=== PATIENT | female | born 1980 | race Caucasian/White ===

== ENCOUNTER → 2020-04-23 | Outpatient (CLI) | payer OTHER | LOC: WOUNDCARE 14:12 | PROVIDERS: ATTEND Surgery | DX: I96 Gangrene, not elsewhere classified (principal); L97.412 Non-pressure chronic ulcer of right heel and midfoot with fat layer exposed; L97.422 Non-pressure chronic ulcer of left heel and midfoot with fat layer exposed; L98.492 Non-pressure chronic ulcer of skin of other sites with fat layer exposed; F11.11 Opioid abuse, in remission; L02.415 Cutaneous abscess of right lower limb; L02.416 Cutaneous abscess of left lower limb; L02.414 Cutaneous abscess of left upper limb; L02.413 Cutaneous abscess of right upper limb; T65.222A Toxic effect of tobacco cigarettes, intentional self-harm, initial encounter; F17.218 Nicotine dependence, cigarettes, with other nicotine-induced disorders | CPT/HCPCS: 99215 ==

== ENCOUNTER 2020-04-24 09:42 | Outpatient (RCR) | payer OTHER ==
[2020-04-20 08:30] VITALS: BP 127/84
--- NOTE | 2020-04-20 09:05 | NUR ---
PT PRESENTS WITH ORDERS FOR OP ABX. HAS WITH HER NOTES FROM [facility] SENIOR ENVIRONMENTAL ENGINEER THAT WOUND VAC ON RIGHT FOOT SHOULD BE CHANGED EVERY 2 DAYS. PT STATES THAT [facility] WAS UNABLE TO CHANGE VAC AND IT HAS BEEN ON SINCE WENS. WITH NO DRESSING CHANGE. PT IS TEARFUL AND WORRIED ABOUT IT GETTING INFECTED AGAIN. WITH NO WRITTEN ORDERS FOR US TO CHANGE THE DRESSING [facility] WAS CONTACTED FOR VERBAL ORDERS FROM DOC SPRAYER HAND FOR [facility]. DR SUTTON ORDERS WOUND VAC CHANGED TO AND TUESDAY AND PT TO MAKE EMILY WITH PCP FOR FOLLOW UP. THIS NURSE CHANGED WOUND VAC DRESSING AND SMITH HAIRSTON CAME IN TO DOUBLE CHECK THE DRESSING. WOUND VAC REAPPLIED AND PT GIVEN INSTRUCTIONS TO GABI DR GONZALEZ OFFICE TUESDAY AND SET UP WOUND CARE VISIT WITH HIM.
[2020-04-20 10:08] VITALS: BP 127/84
[2020-04-22 10:35] VITALS: BP 127/87
[2020-04-22] MEDS: DAPTOMYCIN IV SCH ×2 (11:10→11:13)
[2020-04-22] MEDS: NS IV SCH ×2 (11:10→11:13)
[~2020-04-24] VITALS: Ht 162.6 cm; Wt 72.7 kg
[2020-04-24] MEDS: DAPTOMYCIN IV SCH (09:55)
[2020-04-24] MEDS: NS IV SCH (09:55)
[2020-04-24 10:25] VITALS: BP 124/94
== END 2020-04-24 10:25 | disposition home or self-care (01) ==
LOC: SDC 09:42
PROVIDERS: ATTEND Nurse Practitioner Community Health
DX: Z22.322 Carrier or suspected carrier of Methicillin resistant Staphylococcus aureus (principal); F17.210 Nicotine dependence, cigarettes, uncomplicated
CPT/HCPCS: 96365; 99212

== ENCOUNTER → 2020-04-28 | Outpatient (CLI) | payer OTHER | LOC: WOUNDCARE 14:34 | PROVIDERS: ATTEND Surgery | DX: I96 Gangrene, not elsewhere classified (principal); L98.492 Non-pressure chronic ulcer of skin of other sites with fat layer exposed; L97.422 Non-pressure chronic ulcer of left heel and midfoot with fat layer exposed; L97.412 Non-pressure chronic ulcer of right heel and midfoot with fat layer exposed; F11.10 Opioid abuse, uncomplicated; L02.416 Cutaneous abscess of left lower limb; L02.415 Cutaneous abscess of right lower limb; L02.414 Cutaneous abscess of left upper limb; L02.413 Cutaneous abscess of right upper limb; T65.222A Toxic effect of tobacco cigarettes, intentional self-harm, initial encounter; F17.218 Nicotine dependence, cigarettes, with other nicotine-induced disorders | CPT/HCPCS: 11042; G0463 ==

== ENCOUNTER → 2020-05-05 | Outpatient (CLI) | payer MEDICAID, OTHER | LOC: WOUNDCARE 14:54 | PROVIDERS: ATTEND Surgery | DX: I96 Gangrene, not elsewhere classified (principal); F11.11 Opioid abuse, in remission; L02.415 Cutaneous abscess of right lower limb; T65.222A Toxic effect of tobacco cigarettes, intentional self-harm, initial encounter; F17.218 Nicotine dependence, cigarettes, with other nicotine-induced disorders | CPT/HCPCS: 11042; G0463 ==

== ENCOUNTER → 2020-05-12 | Outpatient (CLI) | payer MEDICAID | LOC: WOUNDCARE 14:50 | PROVIDERS: ATTEND Surgery | DX: L97.412 Non-pressure chronic ulcer of right heel and midfoot with fat layer exposed (principal); L02.415 Cutaneous abscess of right lower limb; T65.222A Toxic effect of tobacco cigarettes, intentional self-harm, initial encounter; I96 Gangrene, not elsewhere classified; F11.11 Opioid abuse, in remission; F17.218 Nicotine dependence, cigarettes, with other nicotine-induced disorders | CPT/HCPCS: 11042; G0463 ==

== ENCOUNTER → 2020-05-20 | Outpatient (CLI) | payer MEDICAID | LOC: WOUNDCARE 13:04 | PROVIDERS: ATTEND Surgery | DX: I96 Gangrene, not elsewhere classified (principal); L02.415 Cutaneous abscess of right lower limb; T65.222A Toxic effect of tobacco cigarettes, intentional self-harm, initial encounter; F17.218 Nicotine dependence, cigarettes, with other nicotine-induced disorders; F11.11 Opioid abuse, in remission; L97.412 Non-pressure chronic ulcer of right heel and midfoot with fat layer exposed | CPT/HCPCS: 99212 ==

== ENCOUNTER → 2020-05-26 | Outpatient (CLI) | payer MEDICAID | LOC: WOUNDCARE 15:11 | PROVIDERS: ATTEND Surgery | DX: L97.412 Non-pressure chronic ulcer of right heel and midfoot with fat layer exposed (principal); L02.415 Cutaneous abscess of right lower limb; T65.222A Toxic effect of tobacco cigarettes, intentional self-harm, initial encounter; I96 Gangrene, not elsewhere classified; F17.218 Nicotine dependence, cigarettes, with other nicotine-induced disorders; F11.11 Opioid abuse, in remission | CPT/HCPCS: 99212 ==

== ENCOUNTER 2020-12-01 11:47 | Inpatient (IN) | payer OTHER ==
[~2020-12-01] VITALS: Ht 167 cm; Wt 79.4 kg
[2020-12-01] MEDS ORDERED: DEXTROSE 50% 50 ML (IMS) SYR ONE (11:49)
[2020-12-01] MEDS ORDERED: NS IV 1000 ML 1,000 ML ONE (11:50)
[2020-12-01] MEDS ORDERED: LORazepam INJ 2 MG/ML (ATIVAN) VIAL ONE (11:50)
[2020-12-01] MEDS ORDERED: ACETAMINOPHEN 325 MG SUPP (TYLENOL) ONE (12:25)
[2020-12-01] MEDS ORDERED: VANCOMYCIN INJECTION 1,500 MG in NS IV 500 ML 500 ML IV ONE (12:30)
[2020-12-01] MEDS ORDERED: ACETAMINOPHEN 650 MG SUPP (TYLENOL) PR ONE (12:30)
[2020-12-01] MEDS ORDERED: CEFEPIME INJECTION 1,000 MG in WATER (STERILE) FOR INJECTION 10 ML IV ONE (12:30)
[2020-12-01] MEDS ORDERED: LORazepam INJ 2 MG/ML (ATIVAN) VIAL IVP ONE ×3 (12:30)
[2020-12-01] MEDS ORDERED: LACTATED RINGERS 1,000 ML IV ONE (12:30)
[2020-12-01] MEDS ORDERED: NS IV 1000 ML 1,000 ML IV ONE (12:30)
--- NOTE | 2020-12-01 12:34 | ED General ---
General Chief Complaint: Altered Mental Status Stated Complaint: AMS Nursing Triage Note: pt presents to ed via ems from scene. according to ems pt was found confused and wondering around a neighborhood when a resident called pd. upon pd arrival to scene pt layed down in the street and was unable to answer questions/appeared confused. Nursing Sepsis Screen: Possible Severe Sepsis Risk Source of Information: Patient, EMS Exam Limitations: Intoxication History of Present Illness Date Seen by Provider: Dec 01, 2020 Time Seen by Provider: 11:45 Initial Comments Patient arrives by EMS from side of the road where PD made contact with her because she was wandering around stammering incoherently. No history of trauma. Patient unable to give any meaningful history. She is encephalopathic and rep eats over and over, "please do not kill me." EMS said she had a blood sugar of 61 the try to get an IV in her and give her some Ativan and glucose unsuccessfully. Allergies and Home Medications Allergies Coded Allergies: No Allergy Information Available (Unverified , 11/19/15) Home Medications No Active Prescriptions or Reported Meds Patient Home Medication List Home Medication List Reviewed: Yes Review of Systems Review of Systems Constitutional: see HPI (Review of systems unobtainable due to patient's psychosis/encephalopathy) Past Xpigtnt-Jypjwk-Vybocx Hx Patient Social History Alcohol Use: Past History Smoking Status: Unknown if Ever Smoked Recent Infectious Disease Expo: No Past Medical History Surgeries: Yes Gallbladder Respiratory: No (unk) Cardiac: No (unk) Integumentary: No Physical Exam-Suspected Sepsis Physical Exam Vital Signs Vital Signs - First Documented 12/01/20 12/01/20 11:50 18:45 Temp 40.2 Pulse 131 Resp 30 B/P (MAP) 90/58 (69) Pulse Ox 92 O2 Delivery Room Air O2 Flow Rate 2.00 FiO2 21 Capillary Refill : Less Than 3 Seconds Blood Pressure Mean: 69 Height, Weight, BMI Height: 5'8.00" Weight: 167lbs. 0.0oz. [id number]; 27.00 BMI Method:Estimated General Appearance: Anxious, Severe Distress, Other (Disheveled) Eyes: Bilateral Eye Other (Bilateral pupils 12 mm minimally reactive and the patient does not blink) HEENT: TMs Normal (Negative hemotympanum or whitten sign), Normal ENT Inspection (Negative for raccoon eyes atraumatic head); No Moist Mucous Membranes (Dry oral mucosa) Neck: Full Range of Motion, Normal Inspection, Non Tender, Supple Respiratory: Chest Non Tender, Lungs Clear, Normal Breath Sounds, Accessory Muscle Use, Respiratory Distress (30 breaths/min, oxygen sats in the mid 80s on room air) Cardiovascular: Regular Rate, Rhythm, No Edema, Normal Peripheral Pulses, Tachycardia Gastrointestinal: Normal Bowel Sounds, No Organomegaly Extremity: Normal Capillary Refill, Normal Inspection Neurologic/Psychiatric: Alert, Other (GCS 13) Skin: normal color, warm/dry Focused Exam Sepsis Stage: Septic Shock Possible Source: Unknown Lactate Level 12/01/20 14:06: Lactic Acid Level 2.08*H 12/01/20 16:08: Lactic Acid Level 2.01*H 12/01/20 18:18: Lactic Acid Level 1.49 Time of Focused Exam: 15:30 Respiratory: Lungs Clear, Normal Breath Sounds, No Accessory Muscle Use, Respiratory Distress (Mild to moderate oxygen sats 98% on 2 L) Cardiovascular: No Edema, Normal Peripheral Pulses, Tachycardia (115) Capillary Refill: Less Than 3 Seconds Peripheral Pulses: 1+ Radial Pulses (R), 1+ Radial Pulses (L) Skin: normal color, diaphoresis Lactic Acid Level Laboratory Tests Test 12/01/20 16:08 12/01/20 18:18 Lactic Acid Level 2.01 MMOL/L (0.50-2.00) *H 1.49 MMOL/L (0.50-2.00) Within 3hrs of presentation: Admin fluids, Admin 30ml/kg IBW due to BMI>30 (3 L ordered including EMS), Admin ABX, Blood cultures prior to ABX's, Focus exam, Lactate level Progress/Results/Core Measures Suspected Sepsis Recent Fever Within 48 Hours: Yes Infection Criteria Present: Suspected New Infection New/Unexplained Altered Menta: Yes Sepsis Screen: Possible Severe Sepsis Risk SIRS Temperature: Pulse: 131 Respiratory Rate: 30 Laboratory Tests 12/01/20 11:50: White Blood Count 20.4H Blood Pressure 90 /58 Mean: 69 12/01/20 14:06: Lactic Acid Level 2.08*H 12/01/20 16:08: Lactic Acid Level 2.01*H 12/01/20 18:18: Lactic Acid Level 1.49 Laboratory Tests 12/01/20 11:50: Creatinine 2.23H, INR Comment 1.0, Platelet Count 399, Total Bilirubin 1.0 Results/Orders Lab Results Laboratory Tests Test 12/01/20 11:50 12/01/20 12:07 12/01/20 13:20 12/01/20 14:06 Range/Units White Blood Count 20.4 H 4.3-11.0 10^3/uL Red Blood Count 4.60 3.80-5.11 10^6/uL Hemoglobin 13.5 11.5-16.0 g/dL Hematocrit 42 35-52 % Mean Corpuscular Volume 91 80-99 fL Mean Corpuscular Hemoglobin 29 25-34 pg Mean Corpuscular Hemoglobin Concent 32 32-36 g/dL Red Cell Distribution Width 13.2 10.0-14.5 % Platelet Count 399 130-400 10^3/uL Mean Platelet Volume 10.5 9.0-12.2 fL Immature Granulocyte % (Auto) 1 % Neutrophils (%) (Auto) 80 H 42-75 % Lymphocytes (%) (Auto) 14 12-44 % Monocytes (%) (Auto) 5 0-12 % Eosinophils (%) (Auto) 0 0-10 % Basophils (%) (Auto) 0 0-10 % Neutrophils # (Auto) 16.3 H 1.8-7.8 10^3/uL Lymphocytes # (Auto) 2.8 1.0-4.0 10^3/uL Monocytes # (Auto) 1.0 0.0-1.0 10^3/uL Eosinophils # (Auto) 0.0 0.0-0.3 10^3/uL Basophils # (Auto) 0.1 0.0-0.1 10^3/uL Immature Granulocyte # (Auto) 0.3 H 0.0-0.1 10^3/uL Neutrophils % (Manual) 78 % Lymphocytes % (Manual) 15 % Monocytes % (Manual) 3 % Band Neutrophils 4 % Hypersegmented Neutrophils SLIGHT Blood Morphology Comment NORMAL Prothrombin Time 13.1 12.2-14.7 SEC INR Comment 1.0 0.8-1.4 Activated Partial Thromboplast Time 26 24-35 SEC Sodium Level 142 135-145 MMOL/L Potassium Level 5.4 H 3.6-5.0 MMOL/L Chloride Level 106 98-107 MMOL/L Carbon Dioxide Level 14 L 21-32 MMOL/L Anion Gap 22 H 5-14 MMOL/L Blood Urea Nitrogen 41 H 7-18 MG/DL Creatinine 2.23 H 0.60-1.30 MG/DL Estimat Glomerular Filtration Rate 25 BUN/Creatinine Ratio 18 Glucose Level 64 L 70-105 MG/DL Lactic Acid Level 5.16 *H 2.08 *H 0.50-2.00 MMOL/L Calcium Level 9.4 8.5-10.1 MG/DL Corrected Calcium 8.5-10.1 MG/DL Total Bilirubin 1.0 0.1-1.0 MG/DL Aspartate Amino Transf (AST/SGOT) 116 H 5-34 U/L Alanine Aminotransferase (ALT/SGPT) 138 H 0-55 U/L Alkaline Phosphatase 87 40-136 U/L Total Creatine Kinase 1546 H 29-168 U/L Troponin I 0.070 H <0.028 NG/ML Total Protein 9.2 H 6.4-8.2 GM/DL Albumin 5.2 H 3.2-4.5 GM/DL Salicylates Level < 5.0 L 5.0-20.0 MG/DL Acetaminophen Level < 10 L 10-30 UG/ML Serum Alcohol < 10 <10 MG/DL Coronavirus 2019 (KENNY) Not Detected Not Detecte Urine Color YELLOW Urine Clarity CLEAR Urine pH 5.5 5-9 Urine Specific Roscoe >=1.030 1.016-1.022 Urine Protein 2+ H NEGATIVE Urine Glucose (UA) NEGATIVE NEGATIVE Urine Ketones NEGATIVE NEGATIVE Urine Nitrite NEGATIVE NEGATIVE Urine Bilirubin NEGATIVE NEGATIVE Urine Urobilinogen 0.2 < = 1.0 MG/DL Urine Leukocyte Esterase NEGATIVE NEGATIVE Urine RBC (Auto) TRACE-I NEGATIVE Urine RBC 5-10 H /HPF Urine WBC 2-5 /HPF Urine Squamous Epithelial Cells 2-5 /HPF Urine Crystals PRESENT H /LPF Urine Amorphous Sediment FEW LEE ANN URATES H /LPF Urine Bacteria FEW H /HPF Urine Casts NONE /LPF Urine Mucus NEGATIVE /LPF Urine Culture Indicated CULTURE PENDING Urine Opiates Screen NEGATIVE NEGATIVE Urine Oxycodone Screen NEGATIVE NEGATIVE Urine Methadone Screen NEGATIVE NEGATIVE Urine Propoxyphene Screen NEGATIVE NEGATIVE Urine Barbiturates Screen NEGATIVE NEGATIVE Ur Tricyclic Antidepressants Screen NEGATIVE NEGATIVE Urine Phencyclidine Screen NEGATIVE NEGATIVE Urine Amphetamines Screen POSITIVE H NEGATIVE Urine Methamphetamines Screen POSITIVE H NEGATIVE Urine Benzodiazepines Screen NEGATIVE NEGATIVE Urine Cocaine Screen NEGATIVE NEGATIVE Urine Cannabinoids Screen NEGATIVE NEGATIVE Test 12/01/20 14:14 12/01/20 15:00 12/01/20 16:08 12/01/20 16:09 Range/Units Glucometer 44 *L 86 97 70-110 MG/DL Lactic Acid Level 2.01 *H 0.50-2.00 MMOL/L Test 12/01/20 17:15 12/01/20 18:18 Range/Units Glucometer 109 70-110 MG/DL Lactic Acid Level 1.49 0.50-2.00 MMOL/L Micro Results Microbiology 12/01/20 Influenza Types A,B Antigen (LIZZIE) - Final, Complete My Orders Orders - AMIE ORTIZ D50w (Emergency) Syringe (Dextrose 50% 5 (12/01/20 11:49) Ns Iv 1000 Ml (Sodium Chloride 0.9%) (12/01/20 11:50) Lorazepam Injection (Ativan Injection) (12/01/20 11:50) Lorazepam Injection (Ativan Injection) (12/01/20 12:30) Lorazepam Injection (Ativan Injection) (12/01/20 12:30) Ns Iv 1000 Ml (Sodium Chloride 0.9%) (12/01/20 12:30) Ct Head Wo (12/01/20 12:26) Cbc With Automated Diff (12/01/20 12:26) Comprehensive Metabolic Panel (12/01/20 12:26) Blood Culture (12/01/20 12:26) Sputum Culture (12/01/20 12:26) Urinalysis (12/01/20 12:26) Urine Culture (12/01/20 12:26) Protime With Inr (12/01/20 12:26) Partial Thromboplastin Time (12/01/20 12:26) Chest 1 View, Ap/Pa Only (12/01/20 12:26) Ed Iv/Invasive Line Start (12/01/20 12:26) Ed Iv/Invasive Line Start (12/01/20 12:26) Troponin I (12/01/20 12:26) Vital Signs Adult Sepsis Patie Q15M (12/01/20 12:26) O2 (12/01/20 12:26) Remove Rings In Anticipation O (12/01/20 12:26) Lactic Acid Analyzer (12/01/20 12:26) Influenza A And B Antigens (12/01/20 12:26) Lactated Ringers (Lr 1000 Ml Iv Solution (12/01/20 12:30) Cefepime Injection (Maxipime Injection) (12/01/20 12:30) Vancomycin Injection (Vancomycin Injecti (12/01/20 12:30) Covid 19 Inhouse Test (12/01/20 12:26) Creatine Kinase (12/01/20 12:26) Urine Bedside (12/01/20 12:26) Catheter(Urinary) Insert & Ass 03,15 (12/01/20 12:26) Lorazepam Injection (Ativan Injection) (12/01/20 12:30) Acetaminophen Suppository (Tylenol Suppo (12/01/20 12:30) Acetaminophen Suppository (Tylenol Suppo (12/01/20 12:25) D50w (Emergency) Syringe (Dextrose 50% 5 (12/01/20 12:45) Accucheck Stat ONCE (12/01/20 12:34) Arterial Blood Gas (12/01/20 12:34) Accucheck Stat ONCE (12/01/20 12:34) Straight Cath For Spec.-Adult (12/01/20 12:34) Manual Differential (12/01/20 11:50) Drug Screen Stat (Urine) (12/01/20 13:54) Alcohol (12/01/20 13:54) Salicylate (12/01/20 13:54) Acetaminophen (12/01/20 13:54) D5 1/2 Ns 1000 Ml Iv Solution (Dextrose (12/01/20 14:30) D50w (Emergency) Syringe (Dextrose 50% 5 (12/01/20 14:30) D5 1/2 Ns 1000 Ml Iv Solution (Dextrose (12/01/20 14:11) Medications Given in ED Current Medications Medications Dose Ordered Sig/Rory Route Start Time Stop Time Status Last Admin Dose Admin Acetaminophen 650 mg ONCE ONCE NV 12/01/20 12:30 12/01/20 12:31 DC 12/01/20 13:23 650 MG Cefepime HCl 1000 mg/Sterile Water 10 ml @ 200 mls/hr ONCE ONCE IV 12/01/20 12:30 12/01/20 12:32 DC 12/01/20 12:38 200 MLS/HR Dextrose 25 ml ONCE ONCE IV 12/01/20 14:30 12/01/20 14:31 DC 12/01/20 14:14 25 ML Dextrose 50 ml STK-MED ONCE .ROUTE 12/01/20 11:49 12/01/20 11:58 DC 12/01/20 12:05 25 ML Lactated Ringer's 1,000 ml @ 0 mls/hr Q0M ONCE IV 12/01/20 12:30 12/01/20 12:31 DC 12/01/20 12:38 0 MLS/HR Lorazepam 2 mg ONCE ONCE IVP 12/01/20 12:30 12/01/20 12:31 DC 12/01/20 12:00 2 MG Lorazepam 2 mg ONCE ONCE IVP 12/01/20 12:30 12/01/20 12:31 DC 12/01/20 12:15 2 MG Lorazepam 2 mg ONCE ONCE IVP 12/01/20 12:30 12/01/20 12:31 DC 12/01/20 12:34 2 MG Sodium Chloride 1,000 ml @ 1,000 mls/hr Q1H ONCE IV 12/01/20 12:30 12/01/20 13:29 DC 12/01/20 12:00 1,000 MLS/HR Vancomycin HCl 1500 mg/Sodium Chloride 500 ml @ 257 mls/hr ONCE ONCE IV 12/01/20 12:30 12/01/20 14:26 DC 12/01/20 12:39 257 MLS/HR Vital Signs/I&O 12/01/20 12/01/20 12/01/20 12/01/20 11:50 11:50 14:24 16:50 Temp 40.2 38.0 Pulse 131 123 112 Resp 30 28 18 B/P (MAP) 90/58 (69) 115/81 (92) 105/84 Pulse Ox 92 96 98 100 O2 Delivery Room Air Nasal Cannula Nasal Cannula O2 Flow Rate 2.00 2.00 12/01/20 12/01/20 12/01/20 12/01/20 17:00 17:08 17:30 17:30 Temp 37.4 Pulse 112 111 Resp 28 B/P (MAP) 109/80 (90) Pulse Ox 100 100 O2 Delivery Room Air Room Air Room Air 12/01/20 12/01/20 12/01/20 17:33 18:00 18:45 Temp 37.4 37.4 Pulse 110 112 Resp 40 B/P (MAP) 108/81 (90) Pulse Ox 95 100 O2 Delivery Room Air FiO2 21 Capillary Refill : Less Than 3 Seconds Blood Pressure Mean: 69 Progress Note : Time: 12:33 Progress Note 6 mg of Ativan later the patient is calm. Her pupils are 12 mm symmetric bilaterally reactive. She does not blink and she does not give any meaningful history. Suspect a toxidrome possibly infectious since she has a fever. We will get a CPK give her 2 to 3 L of IV fluids and do a septic work-up including Covid and influenza swabs. She is very resistant to us trying to get a urine collection by straight catheter. Diagnostic Imaging Diagonstic Imaging: Xray Plain Films/CT/US/NM/MRI: chest Comments NAME: YASMEEN RIBEIRO [facility] REC#: [id number] PT STATUS: REG ER : 1980 PHYSICIAN: AMIE ORTIZ MD ADMIT DATE: 12/01/20/ER Signed Date of Exam:12/01/20 CHEST 1 VIEW, AP/PA ONLY CHEST 1 VIEW, AP/PA ONLY Indication: Sepsis, altered mental status Comparison: 11/19/2015 Findings: No focal airspace disease in the visualized lungs. Please note that the posterior lower lobes are poorly evaluated by portable radiography. No pleural effusion or pneumothorax. Normal cardiomediastinal silhouette. Impression: 1. No acute cardiopulmonary process by portable radiography. Dictated by: Dictated on workstation # [id number] Dict: 12/01/20 1350 Trans: 12/01/20 1352 [facility] [id number] Interpreted by: HERNAN RUFFIN MD Electronically signed by: HERNAN RUFFIN MD 12/01/20 1350 Reviewed: Reviewed by Me Diagonstic Imaging: CT Plain Films/CT/US/NM/MRI: head Comments [facility] [place] NAME: YASMEEN RIBEIRO [facility] REC#: [id number] PT STATUS: REG ER : 1980 PHYSICIAN: AMIE ORTIZ MD ADMIT DATE: 12/01/20/ER Draft Date of Exam:12/01/20 CT HEAD WO PROCEDURE: CT head without contrast. TECHNIQUE: Multiple contiguous axial images were obtained through the brain without the use of intravenous contrast. Auto Exposure Controls were utilized during the CT exam to meet ALARA standards for radiation dose reduction. INDICATION: Encephalopathy COMPARISON with head CT 11/19/2015. There is no intracranial hemorrhage, hydrocephalus, edema, mass, mass effect or evidence for elevated intracerebral pressures. The basilar cisterns are patent. There is no sulcal effacement. Cerebral cortical volume normal. The orbits, sinuses and calvarium unremarkable. IMPRESSION: Stable normal CT head. Dictated on workstation # [id number] Dict: 12/01/20 1516 Trans: 12/01/20 1519 [facility] [id number] Interpreted by: RANCHO LOPEZ Electronically signed by: Reviewed: Reviewed by Me Departure Communication (Admissions) Time/Spoke to Admitting Phy: 15:[address] Arrington and she like Dr. Murray on board for appropriate management of sedation. Impression Primary Impression: Psychosis Qualified Codes: F29 - Unspecified psychosis not due to a substance or known physiological condition Additional Impressions: Methamphetamine intoxication Exertional rhabdomyolysis Dehydration Septic shock Disposition: ADMITTED INPATIENT Condition: Stable Admissions Decision to Admit Reason: Admit from ER (General) Decision to Admit/Date: Dec 01, 2020 Time/Decision to Admit Time: 12:00 Departure-Patient Inst. Referrals: [facility] (PCP/Family) Primary Care Physician Scripts No Active Prescriptions or Reported Meds AMIE ROTIZ Dec 01, 2020 12:34
[2020-12-01 12:38] LABS: BASOPHILS # (AUTO) 0.1 10^3/uL (0.0-0.1); BASOPHILS % (AUTO) 0 % (0-10); EOSINOPHILS % (AUTO) 0 % (0-10); HEMATOCRIT 42 % (35-52); HEMOGLOBIN 13.5 g/dL (11.5-16.0); LYMPHOCYTES # (AUTO) 2.8 10^3/uL (1.0-4.0); LYMPHOCYTES % (AUTO) 14 % (12-44); MEAN CORPUSCULAR HEMOGLOBIN 29 pg (25-34); MEAN CORPUSCULAR HGB CONC 32 g/dL (32-36); MEAN CORPUSCULAR VOLUME 91 fL (80-99); MEAN PLATELET VOLUME 10.5 fL (9.0-12.2); MONOCYTES % (AUTO) 5 % (0-12); NEUTROPHILS # (AUTO) 16.3 10^3/uL (1.8-7.8); NEUTROPHILS % (AUTO) 80 % (42-75); PLATELET COUNT 399 10^3/uL (130-400); WHITE BLOOD COUNT 20.4 10^3/uL (4.3-11.0)
[2020-12-01] MEDS ORDERED: DEXTROSE 50% 50 ML (IMS) SYR IV ONE ×2 (12:45→14:30)
[2020-12-01 12:46] LABS: ALBUMIN 5.2 GM/DL (3.2-4.5); CHLORIDE 106 MMOL/L (98-107); POTASSIUM 5.4 MMOL/L (3.6-5.0); PROTHROMBIN TIME PATIENT 13.1 SEC (12.2-14.7); SODIUM 142 MMOL/L (135-145)
[2020-12-01 12:48] LABS: BAND NEUTROPHILS 4 %; CALCIUM 9.4 MG/DL (8.5-10.1); LYMPHOCYTES % (MANUAL) 15 %; MONOCYTES % (MANUAL) 3 %; NEUTROPHILS % (MANUAL) 78 %
[2020-12-01 12:49] LABS: GLUCOSE 64 MG/DL (70-105); HYPERSEGMENTED NEUT SLIGHT; RBC MORPH NORMAL; TOTAL PROTEIN 9.2 GM/DL (6.4-8.2)
[2020-12-01 12:50] LABS: CARBON DIOXIDE 14 MMOL/L (21-32)
[2020-12-01 12:52] LABS: ALKALINE PHOSPHATASE 87 U/L (40-136); CREATININE SERUM 2.23 MG/DL (0.60-1.30); GFR ESTIMATED 25
[2020-12-01 12:53] LABS: BUN/CREATININE RATIO 18
[2020-12-01 12:55] LABS: ALANINE AMINOTRANSFERASE 138 U/L (0-55); CREATINE KINASE 1546 U/L (29-168)
[2020-12-01 13:41] LABS: BILIRUBIN,URINE NEGATIVE (NEGATIVE); CLARITY,URINE CLEAR; COLOR,URINE YELLOW; GLUCOSE, URINE (UA) NEGATIVE (NEGATIVE); KETONES,URINE NEGATIVE (NEGATIVE); LEUKOCYTE ESTERASE ,URINE NEGATIVE (NEGATIVE); NITRITE,URINE NEGATIVE (NEGATIVE); PH,URINE 5.5 (5-9); PROTEIN,URINE 2+ (NEGATIVE)
--- NOTE | 2020-12-01 13:53 | Diagnostic Imaging Report ---
CHEST 1 VIEW, AP/PA ONLY Indication: Sepsis, altered mental status Comparison: 11/19/2015 Findings: No focal airspace disease in the visualized lungs. Please note that the posterior lower lobes are poorly evaluated by portable radiography. No pleural effusion or pneumothorax. Normal cardiomediastinal silhouette. Impression: 1. No acute cardiopulmonary process by portable radiography. Dictated by: Dictated on workstation # [id number]
[2020-12-01 14:08] LABS: BACTERIA,URINE FEW /HPF
[2020-12-01 14:09] LABS: AMORPHOUS SEDIMENT,UR FEW AMOR URATES /LPF
[2020-12-01] MEDS ORDERED: D5 1/2 NS 1000 ML IV SOLUTION 1,000 ML IV ONE (14:11)
[2020-12-01 14:16] LABS: AMPHETAMINE SCREEN, URINE POSITIVE (NEGATIVE); BARBITURATE SCREEN URINE NEGATIVE (NEGATIVE); BENZODIAZEPINES SCREEN URINE NEGATIVE (NEGATIVE); CANNABINOID SCREEN, URINE NEGATIVE (NEGATIVE); COCAINE SCREEN URINE NEGATIVE (NEGATIVE); METHADONE STAT NEGATIVE (NEGATIVE); METHAMPHETAMINE SCREEN URINE S POSITIVE (NEGATIVE); OPIATE SCREEN URINE NEGATIVE (NEGATIVE); OXYCODONE STAT NEGATIVE (NEGATIVE); PROPOXYPHENE STAT NEGATIVE (NEGATIVE); TRICYCLIC ANTIDEPRESSANTS SCRE NEGATIVE (NEGATIVE)
[2020-12-01 14:18] LABS: SALICYLATE < 5.0 MG/DL (5.0-20.0)
[2020-12-01 14:19] LABS: ACETAMINOPHEN < 10 UG/ML (10-30)
[2020-12-01] MEDS ORDERED: D5 1/2 NS 1000 ML IV SOLUTION 1,000 ML IV SCH (14:30)
--- NOTE | 2020-12-01 15:20 | Diagnostic Imaging Report ---
PROCEDURE: CT head without contrast. TECHNIQUE: Multiple contiguous axial images were obtained through the brain without the use of intravenous contrast. Auto Exposure Controls were utilized during the CT exam to meet ALARA standards for radiation dose reduction. INDICATION: Encephalopathy COMPARISON with head CT 11/19/2015. There is no intracranial hemorrhage, hydrocephalus, edema, mass, mass effect or evidence for elevated intracerebral pressures. The basilar cisterns are patent. There is no sulcal effacement. Cerebral cortical volume normal. The orbits, sinuses and calvarium unremarkable. IMPRESSION: Stable normal CT head. Dictated by: Dictated on workstation # [id number]
[2020-12-01] MEDS ORDERED: ACETAMINOPHEN 650 MG SUPP (TYLENOL) PR PRN (18:15)
[2020-12-01] MEDS ORDERED: ONDANSETRON 4 MG/2 ML (SDV) Z0FRAN IV PRN (18:15)
[2020-12-01] MEDS ORDERED: LORazepam INJ 2 MG/ML (ATIVAN) VIAL IV PRN (18:15)
[2020-12-01] MEDS ORDERED: CATHETER FLUSH 10 ML SYR IV PRN (18:15)
[2020-12-01] MEDS: D5 1/2 NS 1000 ML IV SOLUTION 1,000 ML IV SCH ×2 (18:22→20:47)
[2020-12-01 18:45] VITALS: BP 105/84
[2020-12-01] MEDS ORDERED: RT-ALBUTEROL SULF 2.5 MG/3 ML PRE-MIX VIAL INH PRN (19:00)
[2020-12-01] MEDS ORDERED: EPINEPHrine 1 MG INJECTION 4 MG in NS (IVPB) 248 ML IV SCH (20:45)
[2020-12-01] MEDS ORDERED: NOREPINEPHRINE 8 MG/250 ML 250 ML IV SCH (20:45)
[2020-12-01] MEDS: VASOPRESSIN INJECTION 20 UNIT in NS (IVPB) 100 ML IV SCH (22:15)
[2020-12-01] MEDS: CEFEPIME 1,000 MG/SWFI 10 ML IV PUSH IV SCH ×2 (22:25)
[2020-12-02] MEDS: D5 1/2 NS 1000 ML IV SOLUTION 1,000 ML IV SCH ×4 (03:56→23:30)
[2020-12-02] MEDS: CEFEPIME 1,000 MG/SWFI 10 ML IV PUSH IV SCH ×8 (05:16→23:29)
[2020-12-02] MEDS: VASOPRESSIN INJECTION 20 UNIT in NS (IVPB) 100 ML IV SCH (05:23)
--- NOTE | 2020-12-02 05:56 | Pulmonary Consultation ---
History of Present Illness History of Present Illness Time Seen by Provider: 05:51 Date of Admission Allergies and Home Medications Allergies Coded Allergies: No Allergy Information Available (Unverified , 11/19/15) Home Medications No Active Prescriptions or Reported Meds Past Akypfql-Ovmjxl-Eopgds Hx Patient Social History Alcohol Use: Past History Smoking Status: Unknown if Ever Smoked Recent Infectious Disease Expo: No Have you traveled recently?: Unable to obtain Substance type: Amphetamines, Methamphetamine Alcohol Use?: Unable to obtain Past Medical History Surgeries: Yes Gallbladder Respiratory: No (unk) Cardiac: No (unk) Integumentary: No Review of Systems Time Seen by Provider: 05:56 Sepsis Event Evaluation Height, Weight, BMI Height: 5'8.00" Weight: 167lbs. 0.0oz. 75.571333gp; 27.53 BMI Method:Estimated Exam Exam Vital Signs Date Time Temp Pulse Resp B/P (MAP) Pulse Ox O2 Delivery O2 Flow Rate FiO2 12/02/20 04:00 100 Room Air 12/02/20 04:00 98 29 113/82 (92) Room Air 12/02/20 03:58 36.1 12/02/20 03:00 96 15 110/70 (83) 98 Room Air 12/02/20 02:00 95 19 105/81 (89) Room Air 12/02/20 01:00 93 15 101/68 (79) 100 Room Air 12/02/20 01:00 93 12/02/20 00:00 100 Room Air 12/02/20 00:00 96 19 104/48 (66) 98 Room Air 12/01/20 23:32 36.5 12/01/20 23:00 99 21 101/77 (85) 100 Room Air 12/01/20 22:00 100 22 111/82 (92) 98 Room Air 12/01/20 21:00 104 23 112/78 (89) 100 Room Air 12/01/20 20:31 37.5 12/01/20 20:00 100 Room Air 12/01/20 20:00 106 25 108/78 (88) 99 Room Air 12/01/20 19:00 107 25 111/73 (86) 98 Room Air 12/01/20 19:00 107 12/01/20 18:45 37.4 112 100 21 12/01/20 18:00 110 40 108/81 (90) 95 Room Air 12/01/20 17:33 37.4 12/01/20 17:30 111 28 109/80 (90) 100 Room Air 12/01/20 17:30 112 12/01/20 17:08 37.4 Room Air 12/01/20 17:00 100 Room Air 12/01/20 16:50 112 18 105/84 100 12/01/20 14:24 38.0 123 28 115/81 (92) 98 Nasal Cannula 2.00 12/01/20 11:50 96 Nasal Cannula 2.00 12/01/20 11:50 40.2 131 30 90/58 (69) 92 Room Air I & O 12/02/20 07:00 Intake Total 4130 ml Output Total 1800 ml Balance 2330 ml Height & Weight Height: 5'8.00" Weight: 167lbs. 0.0oz. 75.471121hn; 27.53 BMI Method:Estimated General Appearance: Anxious, Severe Distress, Other (Disheveled) HEENT: TMs Normal (Negative hemotympanum or whitten sign), Normal ENT Inspection (Negative for raccoon eyes atraumatic head); No Moist Mucous Membranes (Dry oral mucosa) Neck: Full Range of Motion, Normal Inspection, Non Tender, Supple Respiratory: Lungs Clear, Normal Breath Sounds, No Accessory Muscle Use, Respiratory Distress (Mild to moderate oxygen sats 98% on 2 L) Cardiovascular: No Edema, Normal Peripheral Pulses, Tachycardia (115) Capillary Refill: Less Than 3 Seconds Peripheral Pulses: 1+ Radial Pulses (R), 1+ Radial Pulses (L) Extremity: Normal Capillary Refill, Normal Inspection Neurologic/Psychiatric: Alert, Other (GCS 13) Results Lab Laboratory Tests 12/01/20 11:50 Assessment/Plan Assessment/Plan Psychosis Methamphetamine dependance -Education Sepsis -Not requiring pressors Rhabdomyolysis -IVF and monitor -Repeat Labs pending ARF -IVF Dehydration with hypoglycemia -D5LR at 150 Elevated LFTs -Monitor ELIANA VILLASENOR DO Dec 02, 2020 05:56
[2020-12-02] MEDS ORDERED: KCL 20 MEQ TAB (K-DUR) PO SCH (06:00)
[2020-12-02] MEDS ORDERED: MAGNESIUM 1 GM/100 ML IVPB 100 ML IV SCH (06:00)
[2020-12-02] MEDS ORDERED: POTASSIUM CL 10MEQ/50ML IVPB 50 ML IV SCH (06:00)
--- NOTE | 2020-12-02 06:19 | Diagnostic Imaging Report ---
EXAMINATION: Portable erect AP chest at 324 hours. INDICATION: Pneumonia. FINDINGS: The heart size is within normal limits and stable when compared to 12/01/2020. The lungs remain generally clear. There is no evidence for failure, pneumonia or for pleural effusion. The mediastinum is not widened. The osseous structures are intact. IMPRESSION: Stable chest. There has been no adverse change since the prior exam. Dictated by: Dictated on workstation # [id number]
[2020-12-02 06:23] LABS: BASOPHILS % (AUTO) 0 % (0-10); EOSINOPHILS % (AUTO) 0 % (0-10); MEAN CORPUSCULAR HEMOGLOBIN 29 pg (25-34); MEAN CORPUSCULAR HGB CONC 32 g/dL (32-36); MEAN PLATELET VOLUME 10.7 fL (9.0-12.2); NEUTROPHILS % (AUTO) 85 % (42-75)
[2020-12-02 06:25] LABS: HEMATOCRIT 40 % (35-52); LYMPHOCYTES % (AUTO) 8 % (12-44); MEAN CORPUSCULAR VOLUME 91 fL (80-99); MONOCYTES % (AUTO) 5 % (0-12)
[2020-12-02 06:33] LABS: ALBUMIN 4.1 GM/DL (3.2-4.5); POTASSIUM 4.9 MMOL/L (3.6-5.0)
[2020-12-02 06:35] LABS: CALCIUM 7.8 MG/DL (8.5-10.1)
[2020-12-02 06:36] LABS: TOTAL PROTEIN 7.9 GM/DL (6.4-8.2)
[2020-12-02 06:37] LABS: BILIRUBIN,TOTAL 1.2 MG/DL (0.1-1.0)
[2020-12-02 06:39] LABS: CREATININE SERUM 1.05 MG/DL (0.60-1.30)
[2020-12-02 06:41] LABS: HEMOGLOBIN 12.9 g/dL (11.5-16.0); PLATELET COUNT 143 10^3/uL (130-400); WHITE BLOOD COUNT 18.6 10^3/uL (4.3-11.0)
[2020-12-02 06:42] LABS: LYMPHOCYTES # (AUTO) 1.6 10^3/uL (1.0-4.0); NEUTROPHILS # (AUTO) 15.9 10^3/uL (1.8-7.8); SMEAR SCAN COMMENT YES
--- NOTE | 2020-12-02 11:14 | History & Physical-Hospitalist ---
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 Carmichael is a 40yoWF with a history of methamphetamine use who was picked up by EMS on the side of the road and brought to [facility] ED after police were called on her for wandering a neighborhood stammering and disoriented. Upon presentation she had severe AMS, sepsis with an initial lactic acid of 5.16, hypoglycemia (61), hypotension, elevated troponin (0.07), and leukocytosis with WBC of 20.4k. She was given Ativan, D50W, 3L fluid bolus. Pt was found to have rhabdomyolysis with CK of 1546 and potassium at 5.4. CXR, CT head, COVID and Influenza testing were all negative and UDS positive for methamphetamines. She was admitted to the ICU and started on Vancomycin, Cefepime, and IVF. She has not required Ativan in the ICU and today she is oriented to person, place and time; however, she continues to have hallucinations but she is aware that they are not reality. She is stable, not requiring pressors, and leukocytosis improving. Her kidney function is improving (Hot Repairman 1.05, potassium WNL) and urine output is adequate. She will continue current abx and IVF in ICU with potential to move down to 4th floor tomorrow. Pt states that she was in a drug recovery program and has not used in awhile but got kicked out due to failure to provide a urine sample and relapsed yesterday. Source: patient, old records Exam Limitations: no limitations Date Seen 12/02/20 Time Seen by a Provider: 08:30 Attending Physician Dominique Casas DO [facility] Referring Physician Date of Admission Dec 01, 2020 at 15:45 Home Medications & Allergies Home Medications Reviewed patient Home Medication Reconciliation performed by pharmacy medication reconciliations pilot plant research technician and/or nursing. Patients Allergies have been reviewed. Allergies Allergies Coded Allergies No Allergy Information Available (Unverified11/19/15) Patient Social History Marrital Status: single Smoking Status: Unknown if Ever Smoked Smokeless Tobacco Frequency: Unknown if Ever Used E-Cig and/or Vaping Freq: Unknown if Ever Used Substance type: Amphetamines, Methamphetamine Alcohol Use?: Unable to obtain Pt stated abuse/neglect: Unable to obtain Immunizations Up To Date Influenza Vaccine Up-to-Date: No; Not Current Current Status Do you have an Advance Directi: Unable to obtain Primary Language: Chinese Implanted or Applied Medical D: None Review of Systems Constitutional: No chills, No diaphoresis, No dizziness, No fever EENTM: No hearing loss, No blurred vision Respiratory: No cough, No dyspnea on exertion, No hemoptysis, No short of breath Cardiovascular: No chest pain, No edema Gastrointestinal: No abdominal pain, No constipation, No heartburn, No jaundice, No loss of appetite Genitourinary: No dysuria, No frequency Musculoskeletal: back pain; No neck pain Skin: No pruritus, No rash Psychiatric/Neurological: Anxiety, Paresthesia (burning in both hands) Physical Exam Physical Exam Vital Signs Vital Signs - First Documented 12/01/20 12/01/20 11:50 18:45 Temp 40.2 Pulse 131 Resp 30 B/P (MAP) 90/58 (69) Pulse Ox 92 O2 Delivery Room Air O2 Flow Rate 2.00 FiO2 21 Capillary Refill : Less Than 3 Seconds Height, Weight, BMI Height: 5'8.00" Weight: 167lbs. 0.0oz. [id number]; 27.53 BMI Method:Estimated General Appearance: No Apparent Distress, WD/WN, Anxious HEENT: PERRL/EOMI, Moist Mucous Membranes Neck: Full Range of Motion, Non Tender Respiratory: Chest Non Tender, Lungs Clear, Normal Breath Sounds, No Accessory Muscle Use, No Respiratory Distress Cardiovascular: Regular Rate, Rhythm, No Edema, No JVD, Normal Peripheral Pulses Gastrointestinal: Normal Bowel Sounds, Non Tender, Soft Genital/Rectal: Other (byrd catheter in place; urine dark) Back: No CVA Tenderness, No Vertebral Tenderness, Other (paravertebral musculature pain b/l lower thoracics) Extremity: Normal Capillary Refill, Non Tender, No Calf Tenderness, No Pedal Edema Neurologic/Psychiatric: Alert, Oriented x3, Normal Mood/Affect, Other (reports hallucinations) Skin: Normal Color, Warm/Dry Lymphatic: No Adenopathy Results Results/Procedures Labs Laboratory Tests 12/01/20 11:50 12/02/20 06:04 12/02/20 06:09 Patient resulted labs reviewed. 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 Continues to have hallucinations Sepsis - improved. Lactic acid 1.49 down from 5.16 Exertional Rhabdomyolysis Substance abuse - methamphetamines Hyperkalemia - resolved GERTRUDIS - improved. Hot Repairman 1.05 down from 2.23 Dehydration and hypoglycemia - resolved Leukocytosis - improved 18.6 down from 20.4. Continue Cefepime and Vanc Elevated Troponin - likely Type II [place] Elevated LFTs - monitor Plan: ICU close monitoring IVF IV abx Diagnosis/Problems Diagnosis/Problems (1) Acute renal failure Status: Acute (2) Drug overdose Status: Acute (3) Hypoglycemia Status: Resolved (4) Sepsis Status: Acute (5) Methamphetamine intoxication Status: Acute (6) Dehydration Status: Resolved (7) Psychosis Status: Acute Qualifiers: Psychosis type: unspecified psychosis type Qualified Codes: F29 - Unspecified psychosis not due to a substance or known physiological condition (8) Exertional rhabdomyolysis Status: Acute CASASOSMAN LUQUEMoraima CHARLES 12/03/20 0618: History of Present Illness HPI/Chief Complaint CC: Altered mental status due to methamphetamine use HPI: This is a 40yoWF of [facility] who has a history of meth use and was in a drug rehab program, was kicked out and continued to use a lot of drugs. She presented with altered mental status, sepsis and rhabdo. Pt was placed on Cefepime and Vanc for suspicion of pneumonia and WC is improved from 20,000 to 18,000 today, but liver enzymes remain elevated from shocked liver. At this current time pt is sleeping and has a lot of fecal incontinence. Source: patient Patient Social History Marrital Status: single Employed/Student: unemployed Smoking Status: Current Everyday Smoker Review of Systems Constitutional: see HPI, weakness Physical Exam Physical Exam General Appearance: No Apparent Distress, Chronically ill Respiratory: Lungs Clear Cardiovascular: Regular Rate, Rhythm Neurologic/Psychiatric: Alert Assessment/Plan Admission Diagnosis Assessment: Psychosis Meth use Liver shock Hypotension Fecal incontinence Plan: ICU Monitor liver Admission Status: Inpatient Order (span 2 midnights) Reason for Inpatient Admission: meth use with liver shock and AMS Supervisory-Addendum Brief Verification & Attestation Participated in pt care: history, MDM, physical Personally performed: exam, history, MDM, supervision of care Care discussed with: Medical Student Procedures: n/a Results interpretation: Verified all documentation Verification and Attestation of Medical Student E/M Service A medical student performed and documented this service in my presence. I reviewed and verified all information documented by the medical student and made modifications to such information, when appropriate. I personally performed the physical exam and medical decision making. Dominique Casas, Dec 03, 2020,06:17 VICTORINO MCRAE MED STUDENT Dec 02, 2020 11:14 DOMINIQUE CASAS DO Dec 03, 2020 06:18
[2020-12-02] MEDS ORDERED: VANCOMYCIN 1 GM/NS 250 ML IVPB IV SCH ×2 (13:00)
[2020-12-02] MEDS: ACETAMINOPHEN 325 MG TABLET PO PRN (20:19)
[2020-12-03 02:55] LABS: HEMATOCRIT 35 % (35-52); MEAN CORPUSCULAR VOLUME 90 fL (80-99); MEAN PLATELET VOLUME 10.8 fL (9.0-12.2)
[2020-12-03 02:57] LABS: BASOPHILS % (AUTO) 0 % (0-10); EOSINOPHILS % (AUTO) 0 % (0-10); HEMOGLOBIN 11.1 g/dL (11.5-16.0); LYMPHOCYTES # (AUTO) 1.5 10^3/uL (1.0-4.0); LYMPHOCYTES % (AUTO) 11 % (12-44); MEAN CORPUSCULAR HEMOGLOBIN 29 pg (25-34); MEAN CORPUSCULAR HGB CONC 32 g/dL (32-36); MONOCYTES # (AUTO) 0.5 10^3/uL (0.0-1.0); MONOCYTES % (AUTO) 4 % (0-12); NEUTROPHILS # (AUTO) 10.9 10^3/uL (1.8-7.8); NEUTROPHILS % (AUTO) 84 % (42-75); PLATELET COUNT 102 10^3/uL (130-400)
[2020-12-03 03:09] LABS: CHLORIDE 114 MMOL/L (98-107); POTASSIUM 3.7 MMOL/L (3.6-5.0); SODIUM 137 MMOL/L (135-145)
[2020-12-03 03:10] LABS: CALCIUM 7.6 MG/DL (8.5-10.1)
[2020-12-03 03:11] LABS: GLUCOSE 100 MG/DL (70-105)
[2020-12-03 03:12] LABS: CARBON DIOXIDE 12 MMOL/L (21-32)
[2020-12-03 03:14] LABS: CREATININE SERUM 0.74 MG/DL (0.60-1.30); GFR ESTIMATED > 60; PHOSPHORUS 1.8 MG/DL (2.3-4.7)
[2020-12-03 03:15] LABS: BUN/CREATININE RATIO 15
[2020-12-03 03:17] LABS: MAGNESIUM 1.9 MG/DL (1.6-2.4)
--- NOTE | 2020-12-03 04:47 | Pulmonary Progress Note ---
Subjective Time Seen by a Provider: 04:42 Subjective/Events-last exam No complications noted. Sepsis Event Evaluation Height, Weight, BMI Height: 5'8.00" Weight: 167lbs. 0.0oz. 75.222015sm; 27.53 BMI Method:Estimated Focused Exam Lactate Level 12/01/20 14:06: Lactic Acid Level 2.08*H 12/01/20 16:08: Lactic Acid Level 2.01*H 12/01/20 18:18: Lactic Acid Level 1.49 Time of Focused Exam: 15:30 Exam Exam Vital Signs Date Time Temp Pulse Resp B/P (MAP) Pulse Ox O2 Delivery O2 Flow Rate FiO2 12/03/20 04:00 85 26 112/72 (85) 97 Room Air 12/03/20 03:00 82 21 106/78 (90) 97 Room Air 12/03/20 03:00 37.0 12/03/20 02:00 86 16 107/72 (87) 98 Room Air 12/03/20 02:00 37.0 12/03/20 01:00 83 15 110/80 (87) 97 Room Air 12/03/20 01:00 37.0 12/03/20 00:06 36.7 12/03/20 00:00 88 15 92/63 (73) 97 Room Air 12/02/20 23:59 Room Air 12/02/20 23:00 82 28 101/66 (80) 98 Room Air 12/02/20 22:00 36.6 12/02/20 22:00 89 16 112/63 (80) 97 Room Air 12/02/20 21:00 36.6 12/02/20 21:00 91 20 122/81 (96) 98 Room Air 12/02/20 20:11 Room Air 12/02/20 20:00 36.7 12/02/20 20:00 Room Air 12/02/20 20:00 89 17 115/77 (88) 98 Room Air 12/02/20 19:00 91 17 126/85 (99) 100 Room Air 12/02/20 19:00 91 12/02/20 18:00 84 14 100/71 (81) 97 Room Air 12/02/20 17:00 82 14 93/64 (74) 97 Room Air 12/02/20 16:00 90 21 102/88 (93) 98 Room Air 12/02/20 15:53 36.4 12/02/20 15:01 Room Air 12/02/20 15:00 84 30 109/72 (84) 99 Room Air 12/02/20 14:00 89 15 114/85 (95) 99 Room Air 12/02/20 13:00 87 16 106/77 (87) 99 Room Air 12/02/20 12:46 87 12/02/20 12:42 36.9 12/02/20 12:21 Room Air 12/02/20 12:00 86 15 109/79 (89) 95 Room Air 12/02/20 11:26 Room Air 12/02/20 11:00 87 17 109/82 (91) 100 Nasal Cannula 2.00 12/02/20 10:23 93 Nasal Cannula 2.00 12/02/20 10:17 Nasal Cannula 2.00 12/02/20 10:00 87 17 112/83 (93) Room Air 12/02/20 09:00 90 20 108/88 (95) Room Air 12/02/20 08:30 Room Air 12/02/20 08:27 91 22 128/94 (105) 93 Room Air 12/02/20 08:00 88 21 127/118 (121) Room Air 12/02/20 07:48 36.2 12/02/20 07:00 96 16 128/94 (105) Room Air 12/02/20 06:50 93 I & O 12/03/20 07:00 Intake Total 4110 ml Output Total 2125 ml Balance 1985 ml Height & Weight Height: 5'8.00" Weight: 167lbs. 0.0oz. 75.607554kj; 27.53 BMI Method:Estimated General Appearance: No Apparent Distress, WD/WN, Anxious HEENT: PERRL/EOMI, Moist Mucous Membranes Neck: Full Range of Motion, Non Tender Respiratory: Chest Non Tender, Lungs Clear, Normal Breath Sounds, No Accessory Muscle Use, No Respiratory Distress Cardiovascular: Regular Rate, Rhythm, No Edema, No JVD, Normal Peripheral Pulses Capillary Refill: Less Than 3 Seconds Peripheral Pulses: 1+ Radial Pulses (R), 1+ Radial Pulses (L) Extremity: Normal Capillary Refill, Non Tender, No Calf Tenderness, No Pedal Edema Neurologic/Psychiatric: Alert, Oriented x3, Normal Mood/Affect, Other (reports hallucinations) Skin: Normal Color, Warm/Dry Lymphatic: No Adenopathy Results Lab Laboratory Tests 12/01/20 11:50 12/02/20 06:04 12/02/20 06:09 12/03/20 02:30 Assessment/Plan Assessment/Plan Psychosis Methamphetamine dependance -Education Sepsis -Not requiring pressors -D/C Vanco continue Cefepime Rhabdomyolysis -IVF and monitor -Repeat CK ARF -IVF Dehydration with hypoglycemia -D5LR at 150 Elevated LFTs -Monitor ELIANA VILLASENOR DO Dec 03, 2020 04:47
[2020-12-03] MEDS ORDERED: POTASSIUM PHOSPHATE INJ 15 MM in NS (IVPB) 250 ML IV ONE (05:00)
[2020-12-03] MEDS: CEFEPIME 1,000 MG/SWFI 10 ML IV PUSH IV SCH ×10 (05:42→23:56)
[2020-12-03] MEDS: D5 1/2 NS 1000 ML IV SOLUTION 1,000 ML IV SCH ×3 (05:44→23:56)
[2020-12-03] MEDS ORDERED: SODIUM PHOSPHATE INJ 30 MM in NS (IVPB) 250 ML INJ ONE (08:00)
[2020-12-03] MEDS: ACETAMINOPHEN 325 MG TABLET PO PRN ×2 (08:20→17:13)
[2020-12-03] MEDS ORDERED: KCL 20 MEQ TAB (K-DUR) PO NR (09:00)
--- NOTE | 2020-12-03 11:11 | Progress Note - Hospitalist ---
VCITORINO MCRAE MED STUDENT 12/03/20 1111: Subjective HPI/CC On Admission Date Seen by Provider: Dec 03, 2020 Time Seen by Provider: 08:00 CC: Altered mental status due to methamphetamine use HPI: This is a 40yoWF of [facility] who has a history of meth use and was in a drug rehab program, was kicked out and continued to use a lot of drugs. She presented with altered mental status, sepsis and rhabdo. Pt was placed on Cefepime and Vanc for suspicion of pneumonia and WC is improved from 20,000 to 13,000 today, but liver enzymes remain elevated from shocked liver. Patient will be moved to 4th floor today to monitor kidney and liver function as she recovers. Subjective/Events-last exam 12/03/20 Pt seen and examined this am in ICU; resting and ate full breakfast States that her "body hurts all over" WBC improved 13,000 (18.6k yesterday) Repeat CK 65,913 Urine output adequate and normal color compared to yesterday d/c vanco and continued cefepime Move to 4th floor today Had lengthy discussion with patient regarding drug addiction. She did not know how she got to hospital and I relayed story to her from ED report about being picked up by EMS from road because police were called on her. She states that she has not had these reactions to any kind of drugs until recently; within the last year it seems to happen when she uses methamphetamines. She required d ialysis last March for the same issue. She thinks something else is causing the problem and that it isn't all drug-related. I counseled follow-up to establish care with pcp once she is recovered and discharged from hospital. I also encouraged drug recovery program. Patient seemed agreeable to the idea. Focused Exam Lactate Level 12/01/20 14:06: Lactic Acid Level 2.08*H 12/01/20 16:08: Lactic Acid Level 2.01*H 12/01/20 18:18: Lactic Acid Level 1.49 Time of Focused Exam: 15:30 Objective Exam Vital Signs Vital Signs Date Time Temp Pulse Resp B/P (MAP) Pulse Ox O2 Delivery O2 Flow Rate FiO2 12/03/20 08:15 Room Air 12/03/20 08:00 85 12 97 2.00 12/03/20 08:00 36.6 12/01/20 18:45 21 Capillary Refill : Less Than 3 Seconds General Appearance: No Apparent Distress, WD/WN HEENT: PERRL/EOMI, Moist Mucous Membranes Neck: Full Range of Motion, Non Tender, Supple Respiratory: Chest Non Tender, Lungs Clear, Normal Breath Sounds, No Accessory Muscle Use, No Respiratory Distress Cardiovascular: Regular Rate, Rhythm, No Edema, No JVD, Normal Peripheral Pulses Gastrointestinal: Normal Bowel Sounds, Non Tender, Soft Extremity: Normal Capillary Refill, Non Tender, No Calf Tenderness, No Pedal Edema Neurologic/Psychiatric: Alert, Oriented x3, No Motor/Sensory Deficits, Normal M ood/Affect Skin: Normal Color, Warm/Dry Lymphatic: No Adenopathy Comments MSK: Diffuse muscle pain Results/Procedures Lab Laboratory Tests 12/03/20 02:30 Patient resulted labs reviewed. Imaging: Reviewed Imaging Report Assessment/Plan Assessment and Plan Assess & Plan/Chief Complaint Assessment: Psychosis - resolved Sepsis - resolved Exertional Rhabdomyolysis Substance abuse - methamphetamines Hyperkalemia - resolved GERTRUDIS - returned to baseline. Product Support Specialist 0.74 down from 1.05 Dehydration and hypoglycemia - resolved Leukocytosis - improved 13k down from 18.6. Continue Cefepime and d/c Vanc Elevated Troponin - likely Type II [place] Elevated LFTs - monitor Plan: Move to 4th floor IVF IV abx Recheck LFTs Diagnosis/Problems Diagnosis/Problems (1) Acute renal failure Status: Acute (2) Drug overdose Status: Acute (3) Hypoglycemia Status: Resolved (4) Sepsis Status: Acute (5) Methamphetamine intoxication Status: Acute (6) Dehydration Status: Resolved (7) Psychosis Status: Acute Qualifiers: Qualified Codes: F29 - Unspecified psychosis not due to a substance or known physiological condition (8) Exertional rhabdomyolysis Status: Acute DOMINIQUE CASAS DO 12/04/20 0527: Subjective Subjective/Events-last exam Pt going to the floor Will discontinue Garcia catheter and initiate PT and OT CPK is 65,000 Will keep Cefepime maintained and DC the Vancomycin Creatinine 0.74 since she has a history of dialysis last year Does not need telemetry Review of Systems General: Fatigue, Malaise Objective Exam General Appearance: No Apparent Distress, WD/WN, Chronically ill Respiratory: Lungs Clear Cardiovascular: Regular Rate, Rhythm Neurologic/Psychiatric: Alert, Oriented x3, No Motor/Sensory Deficits, Normal Mood/Affect Assessment/Plan Assessment and Plan Assess & Plan/Chief Complaint Transfer to [facility] Monitor CPK IVF Supervisory-Addendum Brief Verification & Attestation Participated in pt care: history, MDM, physical Personally performed: exam, history, MDM, supervision of care Care discussed with: Medical Student Procedures: n/a Results interpretation: Verified all documentation Verification and Attestation of Medical Student E/M Service A medical student performed and documented this service in my presence. I reviewed and verified all information documented by the medical student and made modifications to such information, when appropriate. I personally performed the physical exam and medical decision making. Dominique Casas, Dec 04, 2020,05:26 VICTORINO MCRAE MED STUDENT Dec 03, 2020 11:11 DOMINIQUE CASAS DO Dec 04, 2020 05:27
[2020-12-03 11:39] VITALS: BP 111/73
--- NOTE | 2020-12-03 14:44 | Physical Therapy Evaluation ---
PT Evaluation-General Medical Diagnosis Admission Date Dec 01, 2020 at 15:45 Medical Diagnosis: altered mental status Onset Date: Dec 01, 2020 Therapy Diagnosis Therapy Diagnosis: deconditioning Height/Weight Height (Feet): 5 Height (Inches): 8.00 Weight (Pounds): 167 Weight (Ounces): 0.0 Precautions Precautions/Isolations: Fall Prevention, Standard Precautions Referral Physician: Nury Reason for Referral: Evaluation/Treatment Medical History Additional Medical History gallbladder surgery, MRSA, bone spurs in foot Reviewed History: Yes Social History Home: Single Level Current Living Status: Other Family Entry Into Home: Stairs With Railing PT Steps Into Home: 2 Prior Prior Level of Function SCALE: Activities may be completed with or without assistive devices. 0-Amhfvkdzzx-tuhgjal completes the activity by him/herself with no assistance from a helper. 5-Set-up or Clean-up Assistance-helper sets up or cleans up; patient completes activity. [place] assists only prior to or following the activity. 4-Supervision or Touching Assistance-helper provides verbal cues and/or touching/steadying and/or contact guard assistance as patient completes activity. Assistance may be provided throughout the activity or intermittently. 3-Partial/Moderate Assistance-helper does LESS THAN HALF the effort. [place] lifts, holds or supports trunk or limbs, but provides less than half the effort. 2-Substantial/Maximal Assistance-helper does MORE THAN HALF the effort. [place] lifts or holds trunk or limbs and provides more than half the effort. 5-Kxpohdlfm-ahqfmi does ALL the effort. Patient does none of the effort to complete the activity. Or, the assistance of 2 or more helpers is required for the patient to complete the activity. If activity was not attempted, code reason: 7-Patient Refused. 9-Not Applicable-not attempted and the patient did not perform the activity before the current illness, exacerbation or injury. 10-Not Attempted due to Environmental Limitations-(lack of equipment, weather restraints, etc.). 88-Not Attempted due to Medical Conditions or Safety Concerns. Bed Mobility: 6 Transfers (B,C,W/C): 6 Gait: 6 Stairs: 6 Indoor Mobility (Ambulation): Independent Prior Device Use: occassional use of walker secondary to bone spurs PT Evaluation-Current Subjective Patient reports no pain at this time, notes she is feeling better. Patient consents to therapy. Pt/Family Goals Return home with PLOF Objective Patient Orientation: Person, Place, Time, Normal For Age Attachments: IV ROM/Strength ROM Lower Extremities WFL Strength Lower Extremities WFL Integumentary/Posture Integumentary See nursing report Bowel Incontinence: No Bladder Incontinence: No Sensory Vision: Functional Hearing: Functional Sensation Right Lower Extremit: Intact Sensation Left Lower Extremity: Intact Transfers Roll Left to Right (QC): 6 Sit to Lying (QC): 6 Lying to Sitting/Side of Bed(Q: 6 Sit to Stand (QC): 6 Chair/Dok-yh-Snwvg Xfer(QC): 6 Gait Does the Patient Walk?: Yes Mode of Locomotion: Walk Anticipated Mode of Locomotion: Walk Walk 10 feet (QC): 6 Walk 50 ft with 2 Turns(QC): 6 Walk 150 ft (QC): 6 Distance: 400' Gait Assistive Device: FWW Comments/Gait Description Patient is steady with gait, no LOB noted, slight lateral sway with movement, fair pacing. Balance Sitting Static: Normal Sitting Dynamic: Normal Standing Static: Normal Standing Dynamic: Normal Assessment/Needs Patient is steady with ambulation and functional mobility. Rehab Potential: Good PT Plan Treatment/Plan Treatment Plan: Discontinue PT Treatment Duration: Dec 03, 2020 Frequency: Patient and/or Family Agrees t: Yes Instructed patient to contact doctor if have any concerns in need for follow-up eval from PT. Safety Risks/Education Patient Education: Gait Training, Safety Issues Teaching Recipient: Patient Teaching Methods: Demonstration, Discussion Response to Teaching: Verbalize Understanding Discharge Recommendations Plan Plan to discharge patient from PT services, secondary to patient demonstration of safety with functional mobility and gait. Therapy Discharge Recommendati: Home & Family Time/GCodes Time In: 1347 Time Out: 1357 Total Billed Treatment Time: 10 Total Billed Treatment 1 visit: EVM: 10' OMAR GARCÍA PT Dec 03, 2020 14:44
--- NOTE | 2020-12-03 15:04 | Occupational Therapy Eval ---
OT Evaluation-General/PLF Medical Diagnosis Admission Date Dec 01, 2020 at 15:45 Medical Diagnosis: altered mental status Onset Date: Dec 01, 2020 Therapy Diagnosis Therapy Diagnosis: weakness Height/Weight Height (Feet): 5 Height (Inches): 8.00 Weight (Pounds): 167 Weight (Ounces): 0.0 Precautions Precautions/Isolations: Fall Prevention, Standard Precautions Referral Physician: Nury Referral Reason: Evaluation/Treatment Medical History Additional Medical History methamphetamines Current History EMS from side of road due to call on pt walking in neighborhood stammering and disoriented, severe AMS Social History Home: Single Level Current Living Status: Other Family Entry Into Home: Stairs With Railing Steps Into Home: 2 ADL-Prior Level of Function SCALE: Activities may be completed with or without assistive devices. 4-Hqfhpdgyog-rdxnllj completes the activity by him/herself with no assistance from a helper. 5-Set-up or Clean-up Assistance-helper sets up or cleans up; patient completes activity. [place] assists only prior to or following the activity. 4-Supervision or Touching Assistance-helper provides verbal cues and/or touching/steadying and/or contact guard assistance as patient completes activity. Assistance may be provided throughout the activity or intermittently. 3-Partial/Moderate Assistance-helper does LESS THAN HALF the effort. [place] lifts, holds or supports trunk or limbs, but provides less than half the effort. 2-Substantial/Maximal Assistance-helper does MORE THAN HALF the effort. [place] lifts or holds trunk or limbs and provides more than half the effort. 0-Dkskidwmn-lzerbt does ALL the effort. Patient does none of the effort to complete the activity. Or, the assistance of 2 or more helpers is required for the patient to complete the activity. If activity was not attempted, code reason: 7-Patient Refused. 9-Not Applicable-not attempted and the patient did not perform the activity before the current illness, exacerbation or injury. 10-Not Attempted due to Environmental Limitations-(lack of equipment, weather restraints, etc.). 88-Not Attempted due to Medical Conditions or Safety Concerns. ADL PLOF Comments Pt reports independent wtih ADLs at PLOF, slight difficulty cutting food and opening containers but has assistance from her mother when needed. IND with functional mobility, occasionally using FWW due to bone spurs in feet. Self Care: Independent Functional Cognition: Independent OT Current Status Subjective Pt laying in bed, mother present. Agreeable to OT evaluation/tx. Mental Status/Objective Patient Orientation: Person, Place, Time, Situation Attachments: IV Current Hand Dominance: Right Upper Extremity ROM WFL Upper Extremity Coordination WFL Upper Extremity Sensation WFL ADL-Treatment Eating (QC): 6 (Pt reports IND with lunch) Oral Hygiene (QC): 6 (Based on clincial judgment and discussion with pt) Upper Body Dressing (QC): 6 (Based on clincial judgment and discussion with pt) On/Off Footwear (QC): 6 Toileting Hygiene (QC): 6 (IND) Other Treatments Pt laying in bed, transferred supine to sit EOB IND. Pt performed functional mobility in formerly [facility], 400' IND without AD. Pt returned to her room, requests to use the restroom, IND transfer on/off of toilet and IND with toileting. Pt transferred back to bed, supine IND. Pt reports no concerns with her ability to complete ADLs at this time, feels as though she is at her PLOF IND with ADLs. No skilled OT services indicated at this time. Post tx, pt laying in bed, call light in reach and all needs met. Education OT Patient Education: Correct positioning, Modified ADL techniques, Progress toward Goal/Update tx plan, Purpose of tx/functional activities Teaching Recipient: Patient Teaching Methods: Discussion Response to Teaching: Verbalize Understanding OT Refrigeration Technician Goals Custodial Goals 1=Demonstrate adherence to instructed precautions during ADL tasks. 2=Patient will verbalize/demonstrate understanding of assistive devices/modifications for ADL. 3=Patient will improve strength/tolerance for activity to enable patient to perform ADL's. OT Education/Plan Problem List/Assessment Assessment: No Skilled OT Needs ID'd No skilled OT services indicated at this time, as pt is independent with ADLs and at PLOF. D/C from OT. Discharge Recommendations Plan/Recommendations: Discharge/Goals Met Treatment Plan/Plan of Care Patient would benefit from OT for education, treatment and training to promote independence in ADL's, mobility, safety and/or upper extremity function for ADL's. Plan of Care: ADL Retraining Treatment Duration: Dec 03, 2020 Frequency: 1 time per week (eval only) Time/GCodes Start Time: 13:47 Stop Time: 13:57 Total Time Billed (hr/min): 10 Billed Treatment Time 1, GOLDIE HINOJOSA OT Dec 03, 2020 15:04
[2020-12-03 16:04] VITALS: BP 126/81
[2020-12-03 19:21] VITALS: BP 125/86
[2020-12-04] VITALS (8 sets, daily range): BP systolic 115–130; BP diastolic 75–86
[2020-12-04] MEDS: ACETAMINOPHEN 325 MG TABLET PO PRN (01:07)
[2020-12-04] MEDS: D5 1/2 NS 1000 ML IV SOLUTION 1,000 ML IV SCH ×3 (05:35→19:18)
[2020-12-04] MEDS: CEFEPIME 1,000 MG/SWFI 10 ML IV PUSH IV SCH ×6 (05:35→17:43)
[2020-12-04 06:05] LABS: BASOPHILS % (AUTO) 1 % (0-10); EOSINOPHILS # (AUTO) 0.1 10^3/uL (0.0-0.3); EOSINOPHILS % (AUTO) 2 % (0-10)
[2020-12-04 06:07] LABS: HEMATOCRIT 34 % (35-52); HEMOGLOBIN 10.9 g/dL (11.5-16.0); LYMPHOCYTES # (AUTO) 1.6 10^3/uL (1.0-4.0); LYMPHOCYTES % (AUTO) 21 % (12-44); MEAN CORPUSCULAR HEMOGLOBIN 29 pg (25-34); MEAN CORPUSCULAR HGB CONC 33 g/dL (32-36); MEAN CORPUSCULAR VOLUME 89 fL (80-99); MEAN PLATELET VOLUME 10.8 fL (9.0-12.2); MONOCYTES # (AUTO) 0.5 10^3/uL (0.0-1.0); MONOCYTES % (AUTO) 7 % (0-12); NEUTROPHILS # (AUTO) 5.4 10^3/uL (1.8-7.8); NEUTROPHILS % (AUTO) 70 % (42-75); PLATELET COUNT 128 10^3/uL (130-400); WHITE BLOOD COUNT 7.8 10^3/uL (4.3-11.0)
[2020-12-04 06:14] LABS: ALBUMIN 3.4 GM/DL (3.2-4.5)
[2020-12-04 06:15] LABS: CHLORIDE 113 MMOL/L (98-107); SODIUM 139 MMOL/L (135-145)
[2020-12-04 06:16] LABS: CALCIUM 8.2 MG/DL (8.5-10.1)
[2020-12-04 06:17] LABS: GLUCOSE 93 MG/DL (70-105); TOTAL PROTEIN 6.1 GM/DL (6.4-8.2)
[2020-12-04 06:18] LABS: CARBON DIOXIDE 17 MMOL/L (21-32)
[2020-12-04 06:20] LABS: ALKALINE PHOSPHATASE 61 U/L (40-136)
[2020-12-04 06:21] LABS: CREATININE SERUM 0.71 MG/DL (0.60-1.30); GFR ESTIMATED > 60
[2020-12-04 06:22] LABS: BUN/CREATININE RATIO 8
[2020-12-04 06:23] LABS: ALANINE AMINOTRANSFERASE 884 U/L (0-55)
[2020-12-04 06:46] LABS: CREATINE KINASE 31218 U/L (29-168)
[2020-12-04] MEDS ORDERED: diphenhydrAMINE 25 MG TAB (BENADRYL) PO ONE (08:45)
[2020-12-04] MEDS: VALACYCLOVIR 500 MG TAB (VALTREX) PO SCH ×3 (12:20→20:02)
[2020-12-04] MEDS ORDERED: MAGIC MOUTHWASH, ADULT 155 ML BOTTLE PO SCH (13:00)
--- NOTE | 2020-12-04 13:11 | Progress Note - Hospitalist ---
VICTORINO MCRAE MED STUDENT 12/04/20 1311: Subjective HPI/CC On Admission Date Seen by Provider: Dec 04, 2020 Time Seen by Provider: 09:30 CC: Altered mental status due to methamphetamine use HPI: This is a 40yoWF of [facility] who has a history of meth use and was in a drug rehab program, was kicked out and continued to use a lot of drugs. She presented with altered mental status, sepsis and rhabdo. Pt was placed on Cefepime and Vanc for suspicion of pneumonia and WC is improved from 20,000 to 13,000 today, but liver enzymes remain elevated from shocked liver. Patient moved to 4th floor yesterday to monitor kidney and liver function as she recovers. Subjective/Events-last exam 12/04/20 Overall pt feeling better and resting comfortably; vitals stable CK improved 31,218 down from 65,913 LFTs still elevated New onset lip edema with pain and ulcer on right side of hard palate - thought to be herpes. Valtrex initiated Will order Magic Mouthwash for mouth pain Pt has outpatient followup scheduled next Tuesday Will likely go home tomorrow pending lab results and progress Focused Exam Lactate Level 12/01/20 14:06: Lactic Acid Level 2.08*H 12/01/20 16:08: Lactic Acid Level 2.01*H 12/01/20 18:18: Lactic Acid Level 1.49 Time of Focused Exam: 15:30 Objective Exam Vital Signs Vital Signs Date Time Temp Pulse Resp B/P (MAP) Pulse Ox O2 Delivery O2 Flow Rate FiO2 12/04/20 11:45 36.6 73 99 21 12/04/20 11:17 18 122/80 (94) Room Air 12/03/20 08:00 2.00 Capillary Refill : Less Than 3 Seconds General Appearance: No Apparent Distress, WD/WN HEENT: PERRL/EOMI; No Moist Mucous Membranes; Other (edema of lips with irritation and ulcer on right side of hard palate) Neck: Full Range of Motion, Non Tender, Supple Respiratory: Chest Non Tender, Lungs Clear, Normal Breath Sounds, No Accessory Muscle Use, No Respiratory Distress Cardiovascular: Regular Rate, Rhythm, No Edema, No JVD, No Murmur, Normal Peripheral Pulses Gastrointestinal: Normal Bowel Sounds, Non Tender, Soft Back: No CVA Tenderness, No Vertebral Tenderness Extremity: Normal Capillary Refill, Non Tender, No Calf Tenderness, No Pedal Edema Neurologic/Psychiatric: Alert, Oriented x3, Normal Mood/Affect Skin: Normal Color, Warm/Dry Lymphatic: No Adenopathy Results/Procedures Lab Laboratory Tests 12/04/20 05:47 Patient resulted labs reviewed. Imaging: Reviewed Imaging Report Assessment/Plan Assessment and Plan Assess & Plan/Chief Complaint Assessment: Psychosis - resolved Sepsis - resolved Exertional Rhabdomyolysis Substance abuse - methamphetamines Hyperkalemia - resolved GERTRUDIS - returned to baseline. Service Sprinkler Helper 0.71 down from 0.74 Dehydration and hypoglycemia - resolved Leukocytosis - improved 7.8k down from 13,000. Continue Cefepime and d/c Vanc Elevated Troponin - likely Type II MT Elevated LFTs - monitor Oral herpes - Valtrex, Magic Mouthwash Plan: IVF IV abx Recheck LFTs Valtrex 1000mg TID PT Discharge tomorrow pending improvement of LFTs and CK Diagnosis/Problems Diagnosis/Problems (1) Acute renal failure Status: Acute (2) Drug overdose Status: Acute (3) Hypoglycemia Status: Resolved (4) Sepsis Status: Acute (5) Methamphetamine intoxication Status: Acute (6) Dehydration Status: Resolved (7) Psychosis Status: Acute Qualifiers: Qualified Codes: F29 - Unspecified psychosis not due to a substance or known physiological condition (8) Exertional rhabdomyolysis Status: Acute (9) Oral herpes Status: Acute DOMINIQUE CASAS DO 12/05/20 0540: Subjective Subjective/Events-last exam CPK much improved at 31,000 Lip sores consistent with herpes labialis so will start Valtrex 1000 TID Liver enzymes remain elevated Review of Systems General: Fatigue Objective Exam General Appearance: No Apparent Distress, WD/WN, Chronically ill Respiratory: Lungs Clear Cardiovascular: Regular Rate, Rhythm Neurologic/Psychiatric: Alert, Oriented x3 Assessment/Plan Assessment and Plan Assess & Plan/Chief Complaint Valtrex Monitor liver Monitor CK Supervisory-Addendum Brief Verification & Attestation Participated in pt care: history, MDM, physical Personally performed: exam, history, MDM, supervision of care Care discussed with: Medical Student Procedures: n/a Results interpretation: Verified all documentation Verification and Attestation of Medical Student E/M Service A medical student performed and documented this service in my presence. I reviewed and verified all information documented by the medical student and made modifications to such information, when appropriate. I personally performed the physical exam and medical decision making. Dominique Casas, Dec 05, 2020,05:40 VICTORINO MCRAE MED STUDENT Dec 04, 2020 13:11 DOMINIQUE CASAS DO Dec 05, 2020 05:40
[2020-12-04] MEDS: MAGIC MOUTHWASH (ADULT) PO SCH ×12 (13:23→20:03)
[2020-12-05] MEDS: CEFEPIME 1,000 MG/SWFI 10 ML IV PUSH IV SCH ×6 (00:31→12:52)
[2020-12-05] MEDS: ACETAMINOPHEN 325 MG TABLET PO PRN (00:34)
[2020-12-05] MEDS: D5 1/2 NS 1000 ML IV SOLUTION 1,000 ML IV SCH ×2 (01:57→08:20)
[2020-12-05 05:35] LABS: BASOPHILS % (AUTO) 1 % (0-10); EOSINOPHILS # (AUTO) 0.2 10^3/uL (0.0-0.3); EOSINOPHILS % (AUTO) 4 % (0-10); HEMATOCRIT 33 % (35-52); HEMOGLOBIN 10.7 g/dL (11.5-16.0); LYMPHOCYTES # (AUTO) 1.5 10^3/uL (1.0-4.0); LYMPHOCYTES % (AUTO) 25 % (12-44); MEAN CORPUSCULAR HEMOGLOBIN 29 pg (25-34); MEAN CORPUSCULAR HGB CONC 32 g/dL (32-36); MEAN CORPUSCULAR VOLUME 90 fL (80-99); MEAN PLATELET VOLUME 10.4 fL (9.0-12.2); MONOCYTES # (AUTO) 0.4 10^3/uL (0.0-1.0); MONOCYTES % (AUTO) 7 % (0-12); NEUTROPHILS # (AUTO) 3.7 10^3/uL (1.8-7.8); NEUTROPHILS % (AUTO) 63 % (42-75); PLATELET COUNT 155 10^3/uL (130-400); WHITE BLOOD COUNT 5.9 10^3/uL (4.3-11.0)
[2020-12-05 05:50] LABS: ALBUMIN 3.2 GM/DL (3.2-4.5); CHLORIDE 111 MMOL/L (98-107); POTASSIUM 3.6 MMOL/L (3.6-5.0); SODIUM 138 MMOL/L (135-145)
[2020-12-05 05:52] LABS: CALCIUM 8.1 MG/DL (8.5-10.1)
[2020-12-05 05:53] LABS: GLUCOSE 99 MG/DL (70-105); TOTAL PROTEIN 5.9 GM/DL (6.4-8.2)
[2020-12-05 05:54] LABS: CARBON DIOXIDE 17 MMOL/L (21-32)
[2020-12-05 05:55] LABS: BILIRUBIN,TOTAL 0.8 MG/DL (0.1-1.0)
[2020-12-05 05:56] LABS: ALKALINE PHOSPHATASE 54 U/L (40-136); CREATININE SERUM 0.68 MG/DL (0.60-1.30); GFR ESTIMATED > 60
[2020-12-05 05:58] LABS: BUN/CREATININE RATIO 9
[2020-12-05 05:59] LABS: ALANINE AMINOTRANSFERASE 607 U/L (0-55)
[2020-12-05 07:18] LABS: CREATINE KINASE 12979 U/L (29-168)
[2020-12-05 07:35] VITALS: BP 131/80
[2020-12-05] MEDS: VALACYCLOVIR 500 MG TAB (VALTREX) PO SCH ×2 (08:16→12:55)
[2020-12-05] MEDS: MAGIC MOUTHWASH (ADULT) PO SCH ×8 (08:17→12:56)
[2020-12-05] MEDS ORDERED: VALA500T4 PO (12:11)
--- NOTE | 2020-12-05 12:11 | Discharge Summary ---
Discharge Summary Hospital Course Was the Problem List Reviewed?: Yes Problems/Dx: (1) Acute renal failure Status: Acute Qualifiers: Qualified Codes: N17.9 - Acute kidney failure, unspecified (2) Drug overdose Status: Acute (3) Hypoglycemia Status: Resolved (4) Sepsis Status: Acute (5) Methamphetamine intoxication Status: Acute (6) Dehydration Status: Resolved (7) Psychosis Status: Acute Qualifiers: Qualified Codes: F29 - Unspecified psychosis not due to a substance or known physiological condition (8) Exertional rhabdomyolysis Status: Acute (9) Oral herpes Status: Acute Hospital Course Date of Admission: Dec 01, 2020 at 15:45 Admission Diagnosis : Family Physician/Provider: [place] Date of Discharge: 12/05/20 Discharge Diagnosis: meth use, AMS, liver shock, GERTRUDIS, rhabdo, herpes stomatitis Hospital Course: CC: Psychosis secondary to methamphetamine use, Sepsis, GERTRUDIS, Exertional rhabdomyolysis, Shock liver HPI: Ms. Carmichael is a 40yoWF with a history of methamphetamine use who was picked up by EMS on the side of the road and brought to [facility] ED after police were called on her for wandering a neighborhood stammering and disoriented. Pt later reported that she was in a drug recovery program and had not used in awhile but got kicked out due to failure to provide a urine sample and recalls relapsing just prior to hospital admission. Upon presentation to the ED she had severe AMS, sepsis with an initial lactic acid of 5.16, hypoglycemia (61), hypotension, elevated troponin (0.07), and leukocytosis with WBC of 20.4k. She was given Ativan, D50W, 3L fluid bolus. Pt was found to have rhabdomyolysis with initial CK of 1546 and potassium at 5.4. CXR, CT head, COVID and Influenza testing were all negative and UDS positive for methamphetamines. She was admitted to the ICU and started on Vancomycin, Cefepime, and IVF. LFTs, CK and creatinine were markedly increased but she stabilized in the ICU and hallucinations/psychosis gradually dissipated. She was moved down to the 4th floor for continued monitoring of her labs and developed oral herpes treated with Valtrex. Today all elevated lab values continue to trend downward, oral herpes is improving and patient feels strong and ready to leave. She will be discharged home today where she will stay with her mother and finish course of Valtrex. Patient will have close follow-up with [facility] appt Tuesday morning to monitor liver and kidney function. Discontinuation of all illicit drug use and enrollment in recovery program is advised. Patient should return to ED for any new or worsening symptoms. VICTORINO MCRAE STUDENT Labs and Pending Lab Test: Laboratory Tests 12/04/20 15:56: Glucometer 114H 12/04/20 20:14: Glucometer 121H 12/05/20 05:22: White Blood Count 5.9, Red Blood Count 3.68L, Hemoglobin 10.7L, Hematocrit 33L, Mean Corpuscular Volume 90, Mean Corpuscular Hemoglobin 29, Mean Corpuscular Hemoglobin Concent 32, Red Cell Distribution Width 13.2, Platelet Count 155, Mean Platelet Volume 10.4, Immature Granulocyte % (Auto) 1, Neutrophils (%) (Auto) 63, Lymphocytes (%) (Auto) 25, Monocytes (%) (Auto) 7, Eosinophils (%) (Auto) 4, Basophils (%) (Auto) 1, Neutrophils # (Auto) 3.7, Lymphocytes # (Auto) 1.5, Monocytes # (Auto) 0.4, Eosinophils # (Auto) 0.2, Basophils # (Auto) 0.0, Immature Granulocyte # (Auto) 0.0, Sodium Level 138, Potassium Level 3.6, Chloride Level 111H, Carbon Dioxide Level 17L, Anion Gap 10, Blood Urea Nitrogen 6L, Creatinine 0.68, Estimat Glomerular Filtration Rate > 60, BUN/Creatinine Ratio 9, Glucose Level 99, Calcium Level 8.1L, Corrected Calcium 8.7, Total Bilirubin 0.8, Aspartate Amino Transf (AST/SGOT) 732H, Alanine Aminotransferase (ALT/SGPT) 607#H, Alkaline Phosphatase 54, Total Creatine Kinase 19419R, Total Protein 5.9L, Albumin 3.2 12/05/20 11:40: Glucometer 119H Microbiology 12/01/20 MRSA Screen - Final, Complete MRSA not isolated 12/01/20 Blood Culture - Preliminary, Resulted No growth 12/01/20 Urine Culture - Final, Complete NO GROWTH Home Meds Active No Active Prescriptions or Reported Medications Assessment/Pt Instructions [facility] Tuesday Discharge Planning: <30 minutes discharge planning Discharge Instructions Discharge Diet: No Restrictions Activity as Tolerated: Yes Discharge Physical Examination Vital Signs Vital Signs Date Time Temp Pulse Resp B/P (MAP) Pulse Ox O2 Delivery O2 Flow Rate FiO2 12/05/20 09:37 97 Room Air 12/05/20 07:35 36.6 62 18 131/80 (97) 12/04/20 11:45 21 12/03/20 08:00 2.00 General Appearance: No Apparent Distress, WD/WN Respiratory: Lungs Clear Cardiovascular: Regular Rate, Rhythm Neurologic/Psychiatric: Alert, Oriented x3 Allergies: Coded Allergies: No Allergy Information Available (Unverified , 11/19/15) Discharge Summary Date of Admission Dec 01, 2020 at 15:45 Date of Discharge Discharge Date: Dec 05, 2020 Admission Diagnosis Assessment: Psychosis Meth use Liver shock Hypotension Fecal incontinence Plan: ICU Monitor liver Discharge Diagnosis Valtrex Monitor liver Monitor CK (1) Acute renal failure Status: Acute Qualifiers: Qualified Codes: N17.9 - Acute kidney failure, unspecified (2) Drug overdose Status: Acute (3) Hypoglycemia Status: Resolved (4) Sepsis Status: Acute (5) Methamphetamine intoxication Status: Acute (6) Dehydration Status: Resolved (7) Psychosis Status: Acute Qualifiers: Qualified Codes: F29 - Unspecified psychosis not due to a substance or known physiological condition (8) Exertional rhabdomyolysis Status: Acute (9) Oral herpes Status: Acute SHERRILL CASAS DO Dec 05, 2020 12:11
--- NOTE | 2020-12-05 13:20 | Progress Note ---
VICTORINO MCRAE MED STUDENT 12/05/20 1320: Progress Note CC: Psychosis secondary to methamphetamine use, Sepsis, GERTRUDIS, Exertional rhabdomyolysis, Shock liver HPI: Ms. Carmichael is a 40yoWF with a history of methamphetamine use who was picked up by EMS on the side of the road and brought to [facility] ED after police were called on her for wandering a neighborhood stammering and disoriented. Pt later reported that she was in a drug recovery program and had not used in awhile but got kicked out due to failure to provide a urine sample and recalls relapsing just prior to hospital admission. Upon presentation to the ED she had severe AMS, sepsis with an initial lactic acid of 5.16, hypoglycemia (61), hypotension, elevated troponin (0.07), and leukocytosis with WBC of 20.4k. She was given Ativan, D50W, 3L fluid bolus. Pt was found to have rhabdomyolysis with initial CK of 1546 and potassium at 5.4. CXR, CT head, COVID and Influenza testing were all negative and UDS positive for methamphetamines. She was admitted to the ICU and started on Vancomycin, Cefepime, and IVF. LFTs, CK and creatinine were markedly increased but she stabilized in the ICU and hallucinations/psychosis gradually dissipated. She was moved down to the 4th floor for continued monitoring of her labs and developed oral herpes treated with Valtrex. Today all elevated lab values continue to trend downward, oral herpes is improving and patient feels strong and ready to leave. She will be discharged home today where she will stay with her mother and finish course of Valtrex. Patient will have close follow-up with [facility] appt Tuesday morning to monitor liver and kidney function. Discontinuation of all illicit drug use and enrollment in recovery program is advised. Patient should return to ED for any new or worsening symptoms. DOMINIQUE CASAS DO 12/05/202110: Supervisory-Addendum Brief Verification & Attestation Participated in pt care: history, MDM, physical Personally performed: exam, history, MDM, supervision of care Care discussed with: Medical Student Procedures: n/a Results interpretation: Verified all documentation Verification and Attestation of Medical Student E/M Service A medical student performed and documented this service in my presence. I reviewed and verified all information documented by the medical student and made modifications to such information, when appropriate. I personally performed the physical exam and medical decision making. Dominique Casas, Dec 05, 2020,21:11 VICTORINO MCRAE MED STUDENT Dec 05, 2020 13:20 DOMINIQUE CASAS DO Dec 05, 2020 21:11
--- NOTE | 2020-12-10 12:04 | Physician Query Clarification ---
PQ-Further Specificity Admission/Discharge Admission Date: Dec 01, 2020 at 15:45 Discharge Date: Dec 05, 2020 at 14:50 Dr. Arrington, The medical record reflects the following clinical scenario: History/Risk Factors: meth dependence, AMS, septic shock, shock liver, acute renal failure, rhabdomyolysis Clinical Findings: wandering around stammering incoherently, confused, WBC 20.4, Lactic acid 5.16, T40.2, P 131, R 30, BP 90/58 Treatment: IVP Ativan, IVF, IV Cefepime, IV Vancomycin Question: Can you further specify if the patient had a meth overdose or meth intoxication/psychosis only per the clinical indicators above? Please document a response in the Progress Notes or Discharge Summary. 1. meth intoxication w/psychosis 2. meth overdose w/meth intoxication/psychosis 3. Other, with explanation of the clinical findings. 4. Clinically undetermined, no explanation for the clinical findings. PHYSICIAN RESPONSE Can you specify per above: 1 Please remember a lack of response to the above will prompt a phone page by CDI/Coding staff. In responding to this query, please exercise your independent professional judgment. The purpose of this communication is to more accurately reflect the complexity of your patients condition. The fact that a question is asked does not imply that any particular answer is desired or expected. Thank you for your timely response to this clarification. Requestors name: Jasbir THIS PHYSICIAN QUERY FORM IS A PERMANENT PART OF THE MEDICAL RECORD JASBIR DOWNEY Dec 10, 2020 12:04 SHERRILL ARRINGTON DO Dec 10, 2020 20:07
--- NOTE | 2020-12-10 12:08 | Physician Query Clarification ---
PQ-Further Specificity Admission/Discharge Admission Date: Dec 01, 2020 at 15:45 Discharge Date: Dec 05, 2020 at 14:50 Dr. Arrington, The medical record reflects the following clinical scenario: History/Risk Factors: meth dependence, AMS, septic shock, shock liver, acute renal failure, rhabdomyolysis Clinical Findings: wandering around stammering incoherently, confused, WBC 20.4, Lactic acid 5.16, T40.2, P 131, R 30, BP 90/58 Treatment: IVP Ativan, IVF, IV Cefepime, IV Vancomycin Question: Can you further specify the underlying cause of the severe sepsis with septic shock per the clinical indicators above? Please document a response in the Progress Notes or Discharge Summary. 1. sepsis d/t meth intoxication 2. sepsis d/t infectious etiology (please specify infectious etiology). Documentation states treated for presumed pneumonia. CXR are negative 3. Other, with explanation of the clinical findings. 4. Clinically undetermined, no explanation for the clinical findings. PHYSICIAN RESPONSE Can you specify per above: 1 Please remember a lack of response to the above will prompt a phone page by CDI/Coding staff. In responding to this query, please exercise your independent professional judgment. The purpose of this communication is to more accurately reflect the complexity of your patients condition. The fact that a question is asked does not imply that any particular answer is desired or expected. Thank you for your timely response to this clarification. Requestors name: Jasbir THIS PHYSICIAN QUERY FORM IS A PERMANENT PART OF THE MEDICAL RECORD JASBIR DOWNEY Dec 10, 2020 12:08 SHERRILL ARRINGTON DO Dec 10, 2020 20:08
== END 2020-12-05 14:50 | disposition home or self-care (01) | DRG 896 ==
LOC: EDUNIT# 11:47 → ER 11:53 → ICU 15:45 → 4TH 12-03 10:38
PROVIDERS: ADMIT Internal Medicine; ATTEND Internal Medicine
DX: F15.221 Other stimulant dependence with intoxication delirium (principal); A41.9 Sepsis, unspecified organism; R65.21 Severe sepsis with septic shock; I21.A1 Myocardial infarction type 2; K72.00 Acute and subacute hepatic failure without coma; N17.9 Acute kidney failure, unspecified; G93.40 Encephalopathy, unspecified; M62.82 Rhabdomyolysis; B00.2 Herpesviral gingivostomatitis and pharyngotonsillitis; E86.0 Dehydration; E16.2 Hypoglycemia, unspecified; F41.9 Anxiety disorder, unspecified; R20.2 Paresthesia of skin; Z20.822 Contact with and (suspected) exposure to COVID-19; I95.9 Hypotension, unspecified; R15.9 Full incontinence of feces; E87.5 Hyperkalemia
CPT/HCPCS: 36415; 51702; 70450; 71045; 80048; 80053; 80306; 80320; 80329; 81000; 82550; 82962; 83605; 83735; 84100; 84484; 85007; 85025; 85027; 85610; 85730; 87040; 87081; 87088; 87635; 87804; 93005; 94760; 96361; 96365; 96366; 96375; 96376; 99291

== ENCOUNTER 2021-06-25 11:42 | Emergency (ER) | payer OTHER ==
[~2021-06-25] VITALS: Ht 162 cm; Wt 61.0 kg
[~2021-06-25 11:42] MED LIST: VALA500T4 PO
--- OUTSIDE RECORDS SUMMARY | 2021-06-25 11:47 | XMS REPORT | Clinical Summary ---
Demographics Home Phone Preferred Language Setswana Marital Status Single Adventist Affiliation Unknown Race White Ethnic Group Not or Author Author [facility] Services [facility] ity [facility] ity Address Unknown Phone Unavailable Care Team Providers Care Marketing Data Specialist Name Role Phone Madie Blank PERFORATOR PP Allergies Not on File Medications Not on file Active Problems Problem Noted Date Altered mental status 05/06/2017 Acute renal failure 05/06/2017 Toxic metabolic encephalopathy 01/22/2016 Substance abuse 01/22/2016 Psychosis 01/22/2016 Mixed acid base balance disorder 01/22/2016 Metabolic acidemia 01/22/2016 Hypokalemia 01/22/2016 Hyperthermia 01/22/2016 ARF (acute respiratory failure) 01/22/2016 Acute respiratory failure 01/22/2016 Thrombocytopenia 12/10/2015 Rhabdomyolysis 12/08/2015 Acute liver failure 12/08/2015 Shock 12/07/2015 Seizure 12/07/2015 Multiple abrasions 12/07/2015 Methamphetamine use 12/07/2015 Lactic acidosis 12/07/2015 Hypoglycemia 12/07/2015 Hypernatremia 12/07/2015 Hyperkalemia 12/07/2015 High anion gap metabolic acidosis 12/07/2015 Elevated TSH 12/07/2015 Coma 12/07/2015 Family History Medical History Relation Name Comments Diabetes Other Relation Name Status Comments Other Social History Date Tobacco Use Types Packs/Day Years Used Light Tobacco Smoker Smokeless Tobacco: Never Used Sex Assigned at Date Recorded Not on file Plan of Treatment Not on file Results Not on filefrom Last 3 Months Care Teams Start Date End Date Marketing Data Specialist Relationship Specialty 11/10/18 Madie Blank, NEHA PCP - General
--- OUTSIDE RECORDS SUMMARY | 2021-06-25 11:47 | XMS REPORT | Clinical Summary ---
Author Author [facility] Organization [facility] Address Unknown Phone Unavailable Care Team Providers Care Rn Digestive Name Role Phone Abhay Madie Yumiko SOLOMON PCP Source Comments [facility] (Labor and Delivery) documents do not appear in the [facility] Allergies No known active allergies Medications * Please verify current medications with patient. End Date Status Medication Sig Dispensed Refills Start Date Active trimethoprim-sulfamethoxa Take 1 tablet 10 tablet 0 zole, 160-800 mg / tab, by mouth two 7 (BACTRIM DS) times a day tabletIndications: Abscess of skin of breast Active fluconazole (DIFLUCAN) Take 150 mg 1 tablet 0 150 mg tabletIndications: by mouth as 7 Abscess of skin of breast directed One time Active Problems Problem Noted Date Altered mental [...] Coma 12/07/2015 Family History Medical History Relation Comments Diabetes Other Relation Status Comments Other Social History Date Tobacco Use Types Packs/Day Years Used Light Tobacco Smoker Smokeless Tobacco: Never Used Sex Assigned at Date Recorded Not on file Last Filed Vital Signs Reading Time Taken Comments Vital Sign 102/68 05/06/2017 10:06 AM CDT Blood Pressure 66 05/06/2017 10:06 AM CDT Pulse - - Temperature 18 05/06/2017 10:06 AM CDT Respiratory Rate 98% 05/06/2017 10:06 AM CDT Oxygen Saturation - - Inhaled Oxygen Concentration 71.7 kg (158 lb) 05/06/2017 10:06 AM CDT Weight 162.6 cm (5' 4") 05/06/2017 10:06 AM CDT Height 27.12 05/06/2017 10:06 AM CDT Body Mass Index Plan of Treatment Health Maintenance Due Date Last Done Comments HPV/Cotest 1982 COVID-19 Vaccine (1) 1994 Cervical Cancer Screening 05/06/2020 Pap Smear 05/06/2020 05/06/2017 Influenza Vaccine (#1) 2021 HPV Vaccine Aged Out No longer eligible based on patient's age to complete this topic Hepatitis A Vaccine Aged Out No longer eligible based on patient's age to complete this topic Hepatitis B Vaccine Aged Out No longer eligible based on patient's age to complete this topic Hib Vaccine Aged Out No longer eligible based on patient's age to complete this topic IPV Vaccine Aged Out No longer eligible based on patient's age to complete this topic Meningococcal Vaccine Aged Out No longer eligib le based on patient's age to (MCV4) complete this topic Pneumococcal Vaccine: Aged Out No longer eligib le based on patient's age to Pediatrics (0 to 5 Years) complete this topic and At-Risk Patients (6 to 64 Years) Rotavirus Vaccine Aged Out No longer eligible based on patient's age to complete this topic Results Not on filefrom Last 3 Months Advance Directives Patient Medical Liaison Explanation Type Date Recorded CPR Directives Durable Medical POA Advanced Directives Living Will 05/06/2017 11:58 AM Care Teams Start Date End Date Rn Digestive Relationship Specialty 05/06/17 Madei Blank APRN PCP - General Family [address] [place], [place] [address]
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
[2021-06-25 11:48] VITALS: BP 116/93
[2021-06-25] MEDS ORDERED: NS IV 1000 ML 1,000 ML IV ONE (12:30)
[2021-06-25 12:33] LABS: CLARITY,URINE CLOUDY; COLOR,URINE BROWN; GLUCOSE, URINE (UA) NEGATIVE (NEGATIVE); KETONES,URINE 1+ (NEGATIVE); LEUKOCYTE ESTERASE ,URINE NEGATIVE (NEGATIVE); NITRITE,URINE NEGATIVE (NEGATIVE); PH,URINE 6.5 (5-9); PROTEIN,URINE 2+ (NEGATIVE)
[2021-06-25 12:33] LABS: BASOPHILS # (AUTO) 0.1 10^3/uL (0.0-0.1); BASOPHILS % (AUTO) 0 % (0-10); EOSINOPHILS % (AUTO) 0 % (0-10); HEMATOCRIT 42 % (35-52); HEMOGLOBIN 14.4 g/dL (11.5-16.0); LYMPHOCYTES % (AUTO) 4 % (12-44); MEAN CORPUSCULAR HEMOGLOBIN 30 pg (25-34); MEAN CORPUSCULAR HGB CONC 34 g/dL (32-36); MEAN CORPUSCULAR VOLUME 88 fL (80-99); MEAN PLATELET VOLUME 9.9 fL (9.0-12.2); MONOCYTES # (AUTO) 1.6 10^3/uL (0.0-1.0); MONOCYTES % (AUTO) 6 % (0-12); NEUTROPHILS # (AUTO) 23.6 10^3/uL (1.8-7.8); NEUTROPHILS % (AUTO) 89 % (42-75); PLATELET COUNT 313 10^3/uL (130-400); WHITE BLOOD COUNT 26.5 10^3/uL (4.3-11.0)
[2021-06-25 12:46] LABS: AMPHETAMINE SCREEN, URINE POSITIVE (NEGATIVE); BARBITURATE SCREEN URINE NEGATIVE (NEGATIVE); BENZODIAZEPINES SCREEN URINE NEGATIVE (NEGATIVE); CANNABINOID SCREEN, URINE NEGATIVE (NEGATIVE); COCAINE SCREEN URINE NEGATIVE (NEGATIVE); METHADONE STAT NEGATIVE (NEGATIVE); METHAMPHETAMINE SCREEN URINE S POSITIVE (NEGATIVE); OPIATE SCREEN URINE NEGATIVE (NEGATIVE); OXYCODONE STAT NEGATIVE (NEGATIVE); PROPOXYPHENE STAT NEGATIVE (NEGATIVE); TRICYCLIC ANTIDEPRESSANTS SCRE NEGATIVE (NEGATIVE)
[2021-06-25 12:46] LABS: BAND NEUTROPHILS 4 %; LYMPHOCYTES % (MANUAL) 1 %; MONOCYTES % (MANUAL) 6 %; NEUTROPHILS % (MANUAL) 89 %; RBC MORPH NORMAL
[2021-06-25 12:48] LABS: CHLORIDE 104 MMOL/L (98-107); PROTHROMBIN TIME PATIENT 13.5 SEC (12.2-14.7); SODIUM 140 MMOL/L (135-145)
[2021-06-25 12:49] LABS: CALCIUM 9.3 MG/DL (8.5-10.1)
[2021-06-25 12:50] LABS: AMORPHOUS SEDIMENT,UR LARGE AMOR URATES /LPF; BACTERIA,URINE MODERATE /HPF; BILIRUBIN,URINE NEGATIVE (NEGATIVE); RENAL EPITHELIAL CELLS,URINE 0-2 /HPF
[2021-06-25 12:50] LABS: GLUCOSE 93 MG/DL (70-105); TOTAL PROTEIN 8.8 GM/DL (6.4-8.2)
[2021-06-25 12:51] LABS: CARBON DIOXIDE 14 MMOL/L (21-32)
[2021-06-25 12:51] LABS: HYALINE CASTS, URINE 0-2 /LPF
[2021-06-25 12:54] LABS: ALKALINE PHOSPHATASE 67 U/L (40-136); CREATININE SERUM 1.58 MG/DL (0.60-1.30); GFR ESTIMATED 37
[2021-06-25 12:55] LABS: BUN/CREATININE RATIO 24
[2021-06-25 12:57] LABS: ALANINE AMINOTRANSFERASE 136 U/L (0-55)
[2021-06-25 12:58] LABS: MAGNESIUM 2.4 MG/DL (1.6-2.4)
--- NOTE | 2021-06-25 12:58 | ED Chest Pain ---
General Chief Complaint: Lower Extremity Stated Complaint: BACK PAIN Nursing Triage Note: AMBULATED TO ROOM 07 ET BAREFOOT. STATES SHE STEPPED ON GLASS THIS AM AND IS SCARED OF INFECTION. PT RESTLESS AND FIGITY. KEEPS GOING FROM BED TO CHAIR. Source: patient Exam Limitations: no limitations History of Present Illness Date Seen by Provider: Jun 25, 2021 Time Seen by Provider: 12:00 Initial Comments This 40-year-old woman presents to the emergency room initially with complaint of foreign body in the right foot. She thought she stepped on some glass last night or this morning. During the course of the interview she is noted to be significantly tachycardic with a heart rate up to 130s and diaphoretic. She eventually admits that she has used methamphetamines as recently as yesterday morning. She also reports chest pressure over the past couple of weeks. She has not been feeling well since last night and complains of a feeling of swelli ng in her "kidneys" pointing to her lower back. She is noted to have soiled skin and patchy areas of erythema and abrasion on her extremities. She is afebrile. She reports having a Covid Victrio vaccination in April. Patient very anxious and repeats questions. She perseverates on the foreign body in her foot and the perceived swelling over her lower back and seem s less concerned about the chest pain and shortness of breath. She reports she has been in the hospital 3 times in the last year and has been treated for renal failure and sepsis. She reports being on temporary dialysis. Allergies and Home Medications Allergies Coded Allergies: No Allergy Information Available (Unverified , 11/19/15) Patient Home Medication List Home Medication List Reviewed: Yes Valacyclovir HCl (Valtrex) 500 Mg Tablet, 1,000 MG PO TID Prescribed by: SHERRILL CASAS on 12/05/20 1211 Review of Systems Review of Systems Constitutional: see HPI EENTM: No Symptoms Reported Respiratory: SOA at Rest Cardiovascular: See HPI, Chest Pain Gastrointestinal: No Symptoms Reported Genitourinary: No Symptoms Reported Musculoskeletal: no symptoms reported Skin: see HPI Psychiatric/Neurological: See HPI Endocrine: No Symptoms Reported Hematologic/Lymphatic: No Symptoms Reported Past Kacpsip-Xncaqq-Ocrhzv Hx Patient Social History Tobacco Use?: Yes ("I've done it all") Substance use?: Yes Substance type: Methamphetamine, Marijuana Immunizations Up To Date First/Initial COVID19 Vaccinat: 05/05 COVID19 Vaccine Senior Interior Designer: [employer] Past Medical History Surgeries: Yes Gallbladder Respiratory: No Cardiac: Yes (possible heart failure by report) Neurological: No : No Reproductive Disorders: Yes (Abnormal Pap smear) Genitourinary: Yes Renal Failure (Required temporary dialysis) Gastrointestinal: No Musculoskeletal: No Endocrine: No HEENT: No Cancer: No Psychosocial: Yes (History of acute psychosis, polysubstance abuse) Integumentary: No Physical Exam Vital Signs Vital Signs - First Documented 06/25/21 11:48 Temp 36.3 Pulse 131 Resp 16 B/P (MAP) 116/93 (101) Pulse Ox 97 O2 Delivery Room Air Capillary Refill : Less Than 3 Seconds Height, Weight, BMI Height: 5'8.00" Weight: 167lbs. 0.0oz. 75.183228sx; 23.00 BMI Method:Estimated General Appearance: WD/WN, Anxious, Moderate Distress HEENT: PERRL/EOMI, Normal ENT Inspection, Other (Mucous membranes somewhat dry) Neck: Normal Inspection Respiratory: Lungs Clear, Normal Breath Sounds, No Accessory Muscle Use Cardiovascular: No Edema, No Murmur, Tachycardia Gastrointestinal: Normal Bowel Sounds, Non Tender, Soft; No Distended Extremity: Normal Inspection, No Calf Tenderness, No Pedal Edema Neurologic/Psychiatric: Alert, Oriented x3, No Motor/Sensory Deficits, potline monitor II- XII Norm as Tested, Other (Anxious, jittery, perseverating on particular aspects of her care) Skin: Normal Color, Warm/Dry, Other (Patchy areas of erythema and abrasions on the extremities) Focused Exam Lactate Level 06/25/21 12:27: Lactic Acid Level 2.73*H Lactic Acid Level Laboratory Tests Test 06/25/21 12:27 Lactic Acid Level 2.73 MMOL/L (0.50-2.00) *H Progress/Results/Core Measures Results/Orders Lab Results Laboratory Tests Test 06/25/21 12:20 06/25/21 12:27 06/25/21 12:38 Range/Units Urine Color BROWN H Urine Clarity CLOUDY Urine pH 6.5 5-9 Urine Specific Skipwith >=1.030 1.016-1.022 Urine Protein 2+ H NEGATIVE Urine Glucose (UA) NEGATIVE NEGATIVE Urine Ketones 1+ H NEGATIVE Urine Nitrite NEGATIVE NEGATIVE Urine Bilirubin NEGATIVE NEGATIVE Urine Urobilinogen 1.0 < = 1.0 MG/DL Urine Leukocyte Esterase NEGATIVE NEGATIVE Urine RBC (Auto) 3+ H NEGATIVE Urine RBC 5-10 H /HPF Urine WBC 2-5 /HPF Urine Squamous Epithelial Cells 10-25 H /HPF Urine Renal Epithelial Cells 0-2 /HPF Urine Crystals PRESENT H /LPF Urine Amorphous Sediment LARGE LEE ANN URATES H /LPF Urine Bacteria MODERATE H /HPF Urine Casts PRESENT /LPF Urine Hyaline Casts 0-2 H /LPF Urine Granular Casts 2-5 H /LPF Urine Waxy Casts 2-5 H /LPF Urine Mucus NEGATIVE /LPF Urine Culture Indicated YES Urine Opiates Screen NEGATIVE NEGATIVE Urine Oxycodone Screen NEGATIVE NEGATIVE Urine Methadone Screen NEGATIVE NEGATIVE Urine Propoxyphene Screen NEGATIVE NEGATIVE Urine Barbiturates Screen NEGATIVE NEGATIVE Ur Tricyclic Antidepressants Screen NEGATIVE NEGATIVE Urine Phencyclidine Screen NEGATIVE NEGATIVE Urine Amphetamines Screen POSITIVE H NEGATIVE Urine Methamphetamines Screen POSITIVE H NEGATIVE Urine Benzodiazepines Screen NEGATIVE NEGATIVE Urine Cocaine Screen NEGATIVE NEGATIVE Urine Cannabinoids Screen NEGATIVE NEGATIVE White Blood Count 26.5 H 4.3-11.0 10^3/uL Red Blood Count 4.80 3.80-5.11 10^6/uL Hemoglobin 14.4 11.5-16.0 g/dL Hematocrit 42 35-52 % Mean Corpuscular Volume 88 80-99 fL Mean Corpuscular Hemoglobin 30 25-34 pg Mean Corpuscular Hemoglobin Concent 34 32-36 g/dL Red Cell Distribution Width 13.5 10.0-14.5 % Platelet Count 313 130-400 10^3/uL Mean Platelet Volume 9.9 9.0-12.2 fL Immature Granulocyte % (Auto) 1 % Neutrophils (%) (Auto) 89 H 42-75 % Lymphocytes (%) (Auto) 4 L 12-44 % Monocytes (%) (Auto) 6 0-12 % Eosinophils (%) (Auto) 0 0-10 % Basophils (%) (Auto) 0 0-10 % Neutrophils # (Auto) 23.6 H 1.8-7.8 10^3/uL Lymphocytes # (Auto) 1.0 1.0-4.0 10^3/uL Monocytes # (Auto) 1.6 H 0.0-1.0 10^3/uL Eosinophils # (Auto) 0.0 0.0-0.3 10^3/uL Basophils # (Auto) 0.1 0.0-0.1 10^3/uL Immature Granulocyte # (Auto) 0.2 H 0.0-0.1 10^3/uL Neutrophils % (Manual) 89 % Lymphocytes % (Manual) 1 % Monocytes % (Manual) 6 % Band Neutrophils 4 % Blood Morphology Comment NORMAL Prothrombin Time 13.5 12.2-14.7 SEC INR Comment 1.0 0.8-1.4 Activated Partial Thromboplast Time 28 24-35 SEC D-Dimer 0.54 H 0.00-0.49 UG/ML Sodium Level 140 135-145 MMOL/L Potassium Level 4.0 3.6-5.0 MMOL/L Chloride Level 104 98-107 MMOL/L Carbon Dioxide Level 14 L 21-32 MMOL/L Anion Gap 22 H 5-14 MMOL/L Blood Urea Nitrogen 38 H 7-18 MG/DL Creatinine 1.58 H 0.60-1.30 MG/DL Estimat Glomerular Filtration Rate 37 BUN/Creatinine Ratio 24 Glucose Level 93 70-105 MG/DL Lactic Acid Level 2.73 *H 0.50-2.00 MMOL/L Calcium Level 9.3 8.5-10.1 MG/DL Corrected Calcium 8.5-10.1 MG/DL Magnesium Level 2.4 1.6-2.4 MG/DL Total Bilirubin 2.0 H 0.1-1.0 MG/DL Aspartate Amino Transf (AST/SGOT) 322 H 5-34 U/L Alanine Aminotransferase (ALT/SGPT) 136 H 0-55 U/L Alkaline Phosphatase 67 40-136 U/L Total Creatine Kinase 78396 H 29-168 U/L Myoglobin 42313.0 H 10.0-92.0 NG/ML Troponin I 0.776 *H <0.028 NG/ML C-Reactive Protein High Sensitivity 0.55 H 0.00-0.50 MG/DL B-Type Natriuretic Peptide 199.0 H <100.0 PG/ML Total Protein 8.8 H 6.4-8.2 GM/DL Albumin 5.0 H 3.2-4.5 GM/DL Procalcitonin 7.62 H <0.10 NG/ML Serum Test, Qualitative NEGATIVE NEGATIVE Influenza Type A (RT-PCR) Not Detected Not Detecte Influenza Type B (RT-PCR) Not Detected Not Detecte SARS-CoV-2 RNA (RT-PCR) Not Detected Not Detecte My Orders Orders - ALICIA DAVIES MD Cbc With Automated Diff (06/25/21 12:16) Magnesium (06/25/21 12:16) Ekg Tracing (06/25/21 12:16) Comprehensive Metabolic Panel (06/25/21 12:16) Myoglobin Serum (06/25/21 12:16) Protime With Inr (06/25/21 12:16) Partial Thromboplastin Time (06/25/21 12:16) O2 (06/25/21 12:16) Monitor-Rhythm Ecg Trace Only (06/25/21 12:16) Ed Iv/Invasive Line Start (06/25/21 12:16) BNP (06/25/21 12:16) Fibrin Degradation Products (06/25/21 12:16) Troponin I (06/25/21 12:16) Ns Iv 1000 Ml (Sodium Chloride 0.9%) (06/25/21 12:30) Procalcitonin (Pct) (06/25/21 12:16) Hs C Reactive Protein (06/25/21 12:16) Influenza A And B By Pcr (06/25/21 12:16) Covid 19 Inhouse Test (06/25/21 12:16) Drug Screen Stat (Urine) (06/25/21 12:16) Ua Culture If Indicated (06/25/21 12:16) Hcg,Qualitative Serum (06/25/21 12:21) Manual Differential (06/25/21 12:27) Urine Culture (06/25/21 12:20) Blood Culture (06/25/21 12:54) Lactic Acid Analyzer (06/25/21 12:54) Creatine Kinase (06/25/21 13:00) Medications Given in ED Current Medications Medications Dose Ordered Sig/Rory Route Start Time Stop Time Status Last Admin Dose Admin Sodium Chloride 1,000 ml @ 0 mls/hr Q0M ONCE IV 06/25/21 12:30 06/25/21 12:31 DC 06/25/21 12:41 1,000 MLS/HR Vital Signs/I&O 06/25/21 11:48 Temp 36.3 Pulse 131 Resp 16 B/P (MAP) 116/93 (101) Pulse Ox 97 O2 Delivery Room Air Blood Pressure Mean: 101 Progress Progress Note #1: Time: 12:55 Progress Note Patient was undergoing work-up and she abruptly left without discussion and without signing AMA papers. X-rays were pending as were multiple labs. Unfortunately, troponin, WBC, procalcitonin and lactic acid that were significantly elevated. I tried to contact the patient and there was no answer and no voicemail on her phone. Patient did not stay long enough to get a tetanus booster, nor did she stay long enough to have the foreign body in her foot evaluated by x-ray. Progress Note #2: Time: 15:15 Progress Note Total CK returned markedly elevated. I have again tried to call the patient at the only number we have available. There was no answer and there was no means to leave a voicemail message. Progress Note #3: Time: 18:22 Progress Note I tried contacting the patient 1 more time. This time her mother answered the phone number on file. Her mother does not know of her whereabouts at this time. I have asked her mother to encourage the patient strongly to call or return to the emergency room immediately if they come in contact. She expressed understanding. Initial ECG Impression Date: Jun 25, 2021 Initial ECG Impression Time: 12:33 Initial ECG Rate: 112 Initial ECG Rhythm: S.Tach Comment Sinus tachycardia with no ST elevation or depression. No abnormal intervals or axis deviation. Departure Impression Primary Impression: Chest pain Qualified Codes: R07.9 - Chest pain, unspecified Additional Impressions: Tachycardia Elevated troponin Positive urine drug screen Foreign body foot/toe Rhabdomyolysis Qualified Codes: M62.82 - Rhabdomyolysis Left against medical advice Disposition: 07 AGAINST MEDICAL ADVICE Condition: Against Medical Advice Departure-Patient Inst. Referrals: [facility] (PCP/Family) Primary Care Physician Copy Copies To 1: JOSE LUIS HERNANDEZ JOSHUA T MD Jun 25, 2021 12:58
== END 2021-06-25 12:50 | disposition left against medical advice (07) ==
LOC: EDUNIT# 11:42 → ER 11:43
DX: S90.851A Superficial foreign body, right foot, initial encounter (principal); R00.0 Tachycardia, unspecified; R77.8 Other specified abnormalities of plasma proteins; R82.5 Elevated urine levels of drugs, medicaments and biological substances; M62.82 Rhabdomyolysis; Z72.0 Tobacco use; Z20.822 Contact with and (suspected) exposure to COVID-19
CPT/HCPCS: 36415; 80053; 80306; 81000; 82550; 83605; 83735; 83874; 83880; 84145; 84484; 84703; 85007; 85027; 85379; 85610; 85730; 86141; 87040; 87088; 87636; 93005; 93041

== ENCOUNTER 2021-07-15 08:55 | Emergency (ER) | payer OTHER ==
[~2021-07-15] VITALS: Ht 162.5 cm; Wt 72.5 kg
[2021-07-15] MEDS ORDERED: SUCCINYLCHOLINE INJ 100 MG/5 ML SYR/VIAL INJ ONE (08:57)
[2021-07-15] MEDS ORDERED: fentaNYL INJ 100 MCG/2 ML AMP IV ONE (08:57)
[2021-07-15] MEDS ORDERED: KETAMINE HCL 100 MG/ML 5 ML VIAL IJ ONE (08:57)
[2021-07-15] MEDS ORDERED: MIDAZOLAM 5 MG/5 ML (VERSED) VIAL IJ ONE (08:57)
[2021-07-15] MEDS ORDERED: ROCURONIUM 10 MG/ML 5 ML SYRINGE IV ONE (08:57)
[2021-07-15 09:07] VITALS: BP 116/90
== END 2021-07-15 09:59 | disposition left against medical advice (07) ==
LOC: EDUNIT# 08:55 → ER 08:56
DX: M79.89 Other specified soft tissue disorders (principal); M54.9 Dorsalgia, unspecified
CPT/HCPCS: 93005; 99281

== ENCOUNTER 2021-07-15 15:29 | Inpatient (IN) | payer OTHER ==
[~2021-07-15] VITALS: Ht 157 cm; Wt 115.2 kg
[2021-07-15] MEDS ORDERED: LACTATED RINGERS 1,000 ML IV ONE (16:00)
[2021-07-15 16:15] LABS: BASOPHILS % (AUTO) 0 % (0-10); EOSINOPHILS % (AUTO) 0 % (0-10); HEMATOCRIT 36 % (35-52); HEMOGLOBIN 11.8 g/dL (11.5-16.0); LYMPHOCYTES # (AUTO) 0.5 X 10^3 (1.0-4.0); LYMPHOCYTES % (AUTO) 3 % (12-44); MEAN CORPUSCULAR HEMOGLOBIN 30 pg (25-34); MEAN CORPUSCULAR HGB CONC 33 g/dL (32-36); MEAN CORPUSCULAR VOLUME 91 fL (80-99); MEAN PLATELET VOLUME 11.1 fL (9.0-12.2); MONOCYTES # (AUTO) 0.5 X 10^3 (0.0-1.0); MONOCYTES % (AUTO) 3 % (0-12); NEUTROPHILS # (AUTO) 15.3 X 10^3 (1.8-7.8); NEUTROPHILS % (AUTO) 92 % (42-75); PLATELET COUNT 191 10^3/uL (130-400); WHITE BLOOD COUNT 16.5 10^3/uL (4.3-11.0)
[2021-07-15 16:22] LABS: INR 1.2 (0.8-1.4); PROTHROMBIN TIME PATIENT 15.5 SEC (12.2-14.7)
[2021-07-15 16:32] LABS: ALBUMIN 2.8 GM/DL (3.2-4.5)
[2021-07-15 16:33] LABS: POTASSIUM 4.6 MMOL/L (3.6-5.0)
[2021-07-15 16:34] LABS: CALCIUM 8.5 MG/DL (8.5-10.1)
--- NOTE | 2021-07-15 16:34 | ED General ---
General Chief Complaint: Altered Mental Status Stated Complaint: AMS Nursing Triage Note: PT TO ER BY [facility] WITH ALT MENTAL STATUS, L MIDDLE FINGER PAIN AND ANXIETY. PT WAS FOUND IN SOMEONES YARD ON THE GROUND VOMITTING. PT IS CURRENTLY NOT ORIENTED TO PLACE OR TIME Source of Information: Patient Exam Limitations: Physical Impairments (SINA BARCENAS MD) History of Present Illness Date Seen by Provider: Jul 15, 2021 Time Seen by Provider: 15:45 Initial Comments Here by EMS with altered mental status. She was found in someone's yard not her own on the ground vomiting. Oriented to self but not place or time. She is febrile. She was here earlier and left AMA for methamphetamine abuse. Patient complains of left upper quadrant pain and left middle finger pain and anxiety. She is fidgeting with her mask and not really keeping in conversation well. She is awake and breathing without difficulty. She is quite tachycardic. History is limited due to patient's underlying medical condition and altered mental status. She does state that she is vaccinated for Covid. Timing/Duration: 12-24 Hours, Getting Worse Severity: Moderate, Severe Associated Systoms: Fever/Chills, Nausea/Vomiting; No Shortness of Air, No Weakness (SINA BARCENAS MD) Allergies and Home Medications Allergies Coded Allergies: No Known Drug Allergies (Unverified , 07/15/21) Patient Home Medication List Home Medication List Reviewed: Yes (SINA BARCENAS MD) No Active Prescriptions or Reported Meds Review of Systems Review of Systems Constitutional: see HPI, fever, weakness Respiratory: No cough, No short of breath Gastrointestinal: abdominal pain (LUQ), nausea, vomiting Musculoskeletal: joint pain; No joint swelling Skin: change in color, lesions (Multiple abrasions and contusions over the body.) Review of systems limited due to altered mental status. (SINA BARCENAS MD) Past Acpuvah-Ajiuar-Lhxsbs Hx Patient Social History Tobacco Use?: Yes Tobacco type used: Cigarettes Substance use?: Yes Substance type: Amphetamines, Methamphetamine, Marijuana Substance frequency: Daily Alcohol Use?: Unable to obtain (SINA BARCENAS MD) Immunizations Up To Date First/Initial COVID19 Vaccinat: 05/05 Second COVID19 Vaccination Bayron: 05/05 (SINA BARCENAS MD) Past Medical History Surgeries: Yes Gallbladder Respiratory: No Cardiac: Yes (possible heart failure by report) Neurological: No Reproductive Disorders: Yes (Abnormal Pap smear) Genitourinary: Yes Renal Failure Gastrointestinal: No Musculoskeletal: No Endocrine: No HEENT: No Cancer: No Psychosocial: Yes (History of acute psychosis, polysubstance abuse) Integumentary: No (SINA BARCENAS MD) Family Medical History Reviewed Nursing Family Hx (SINA BARCENAS MD) No Pertinent Family Hx (SINA BARCENAS MD) Physical Exam-Suspected Sepsis Physical Exam Vital Signs Vital Signs - First Documented 07/15/21 07/15/21 15:40 18:02 Temp 37.6 Pulse 147 Resp 26 B/P (MAP) 114/101 (105) Pulse Ox 97 O2 Delivery Room Air FiO2 100 (AMIE HASKINS) Vital Signs Capillary Refill : (SINA BARCENAS MD) Blood Pressure Mean: 105 Height, Weight, BMI Height: 5'8.00" Weight: 167lbs. 0.0oz. 75.797148yl; 23.00 BMI Method:Estimated General Appearance: Anxious, Mild Distress HEENT: PERRL/EOMI, Pharynx Normal, Other (Vomit noted on face) Neck: Non Tender, Supple Respiratory: Lungs Clear, Normal Breath Sounds Cardiovascular: No Murmur, Tachycardia Gastrointestinal: Normal Bowel Sounds, Non Tender, Soft Back: Normal Inspection, No CVA Tenderness, No Vertebral Tenderness Extremity: Normal Range of Motion, Non Tender, No Calf Tenderness Neurologic/Psychiatric: Alert, Disoriented (Place and time), Other (Anxious and repeating) Skin: warm/dry, ecchymosis (Multiple areas of ecchymosis on upper and lower extremities), other (Abrasion to the right great toe and then multiple picking wounds on upper and lower extremities.) (SINA BARCENAS MD) Focused Exam Lactate Level 07/15/21 15:55: Lactic Acid Level 9.04*H 07/15/21 17:48: Lactic Acid Level 5.80*H (AMIE HASKINS) Lactic Acid Level Laboratory Tests Test 07/15/21 15:55 07/15/21 17:48 Lactic Acid Level 9.04 MMOL/L (0.50-2.00) *H 5.80 MMOL/L (0.50-2.00) *H (AMIE HASKINS) Procedures/Interventions Lumen: triple Central Line Procedure: betadine prep, sterile drapes applied, sterile dressing applied Position: internal jugular (R) Anesthesia: local Volume Anesthetic (ccs): 4 Complications: Post Position: sutured, good blood return Right internal jugular line placed via ultrasound guidance using Seldinger technique. Chest x-ray showed line turned into the right subclavian vein. This will be removed. Second attempt by Dr. Haskins. 182: Left IJ placed via Seldinger technique by Dr. Haskins. Confirmed with chest x-ray and line is able to be used. No pneumothorax. (SINA BARCENAS MD) Emergency consent was ascertained secondary to multisystem organ failure, rhabdomyolysis, lack of peripheral IV sites and orotracheal intubation. The patient was positioned in the usual format and using the usual sterile garments and drapes the patient was dressed out. The skin was thoroughly cleaned with the supplied chlorhexidine prep. After the prep had dried a sterile drape was p laced. The 20 cm 7 [place] triple-lumen catheter was flushed with sterile saline. We used ultrasound guidance to pass the introducer needle into the left internal jugular without difficulty. A guidewire was placed easily without difficulty. No ectopy was seen on the monitor. The supplied 11 blade scalpel was used to make a 2 mm incision at the inferior portion of the introducer needle. The introducer needle was replaced with the dilator. The dilator was taken out and the patient had the central lumen of the triple lumen catheter threaded over the guidewire and placed at 13 cm. The guidewire was removed and the triple-lumen catheter was stitched in place using the supplied braided stitch at 2 different points. The catheter withdrew blood and flushed easily. A sterile dressing was placed over the catheter. The patient tolerated the procedure well. A chest x-ray was obtained that demonstrated no pneumothorax and a new interval central catheter over the shadow of the left internal jugular down the superior vena cava and terminating just proximal to the right atria. (AMIE HASKINS) Date of ETT Placement: Jul 15, 2021 Time of ETT Placement: 17:45 Intubation Method: orotracheal Tube Size: 7.5 Medications: Succinylcholine Positive End Tide CO2: Yes Breath Sounds after Intubation: bilateral-equal Intubation Complications: no complications Post Intubation Xray: Yes Distal tube at monica. Backed up 2 cm Intubated x1 attempt via video scope to 24 cm at the teeth. Noted to be at the monica and backed up 2 cm. Ventilating well. O2 saturations 97% or above throughout procedure. Vent settings tidal volume 400, rate 15, PEEP of 5 and FiO2 at 60%. (SINA BARCENAS MD) Progress/Results/Core Measures Suspected Sepsis SIRS Temperature: Pulse: 147 Respiratory Rate: 26 Laboratory Tests 07/18/21 05:05: White Blood Count 17.5H 07/19/21 04:00: White Blood Count 16.7H 07/20/21 00:37: Blood Pressure 114 /101 Mean: 105 07/17/21 05:30: Lactic Acid Level 2.88*H Laboratory Tests 07/17/21 05:30: Creatinine 0.73, Total Bilirubin 0.9 07/18/21 05:05: Creatinine 0.60, Total Bilirubin 0.8, INR Comment 1.2, Platelet Count 83L 07/19/21 04:00: Creatinine 0.63, Total Bilirubin 1.0, INR Comment 1.2, Platelet Count 98L 07/20/21 00:37: (SINA BARCENAS MD) Results/Orders Lab Results Laboratory Tests Test 07/15/21 15:55 07/15/21 16:15 07/15/21 16:32 07/15/21 17:48 Range/Units White Blood Count 16.5 H 4.3-11.0 10^3/uL Red Blood Count 4.00 3.80-5.11 10^6/uL Hemoglobin 11.8 11.5-16.0 g/dL Hematocrit 36 35-52 % Mean Corpuscular Volume 91 80-99 fL Mean Corpuscular Hemoglobin 30 25-34 pg Mean Corpuscular Hemoglobin Concent 33 32-36 g/dL Red Cell Distribution Width 14.4 10.0-14.5 % Platelet Count 191 130-400 10^3/uL Mean Platelet Volume 11.1 9.0-12.2 fL Immature Granulocyte % (Auto) 1 % Neutrophils (%) (Auto) 92 H 42-75 % Lymphocytes (%) (Auto) 3 L 12-44 % Monocytes (%) (Auto) 3 0-12 % Eosinophils (%) (Auto) 0 0-10 % Basophils (%) (Auto) 0 0-10 % Neutrophils # (Auto) 15.3 H 1.8-7.8 X 10^3 Lymphocytes # (Auto) 0.5 L 1.0-4.0 X 10^3 Monocytes # (Auto) 0.5 0.0-1.0 X 10^3 Eosinophils # (Auto) 0.0 0.0-0.3 10^3/uL Basophils # (Auto) 0.0 0.0-0.1 10^3/uL Immature Granulocyte # (Auto) 0.2 H 0.0-0.1 10^3/uL Neutrophils % (Manual) 80 % Lymphocytes % (Manual) 4 % Monocytes % (Manual) 1 % Metamyelocytes % 3 % Myelocytes % 1 % Band Neutrophils 9 % Atypical Lymphocytes 2 % Blood Morphology Comment NORMAL Prothrombin Time 15.5 H 12.2-14.7 SEC INR Comment 1.2 0.8-1.4 Activated Partial Thromboplast Time 29 24-35 SEC Sodium Level 120 *L 135-145 MMOL/L Potassium Level 4.6 3.6-5.0 MMOL/L Chloride Level 88 L 98-107 MMOL/L Carbon Dioxide Level 12 L 21-32 MMOL/L Anion Gap 20 H 5-14 MMOL/L Blood Urea Nitrogen 38 H 7-18 MG/DL Creatinine 1.27 0.60-1.30 MG/DL Estimat Glomerular Filtration Rate 47 BUN/Creatinine Ratio 30 Glucose Level 114 H 70-105 MG/DL Lactic Acid Level 9.04 *H 5.80 *H 0.50-2.00 MMOL/L Calcium Level 8.5 8.5-10.1 MG/DL Corrected Calcium 9.5 8.5-10.1 MG/DL Magnesium Level 2.5 H 1.6-2.4 MG/DL Total Bilirubin 1.8 H 0.1-1.0 MG/DL Aspartate Amino Transf (AST/SGOT) 183 H 5-34 U/L Alanine Aminotransferase (ALT/SGPT) 76 H 0-55 U/L Alkaline Phosphatase 133 40-136 U/L Total Creatine Kinase 1663 H 29-168 U/L C-Reactive Protein High Sensitivity 31.14 H 0.00-0.50 MG/DL Total Protein 6.4 6.4-8.2 GM/DL Albumin 2.8 L 3.2-4.5 GM/DL Lipase 38 8-78 U/L Procalcitonin 66.79 H <0.10 NG/ML Salicylates Level < 5.0 L 5.0-20.0 MG/DL Acetaminophen Level < 10 L 10-30 UG/ML Serum Alcohol < 10 <10 MG/DL Influenza Type A (RT-PCR) Not Detected Not Detecte Influenza Type B (RT-PCR) Not Detected Not Detecte SARS-CoV-2 RNA (RT-PCR) Not Detected Not Detecte Urine Color YELLOW Urine Clarity CLEAR Urine pH 6.0 5-9 Urine Specific [place] 1.025 H 1.016-1.022 Urine Protein 2+ H NEGATIVE Urine Glucose (UA) NEGATIVE NEGATIVE Urine Ketones NEGATIVE NEGATIVE Urine Nitrite POSITIVE H NEGATIVE Urine Bilirubin 1+ H NEGATIVE Urine Urobilinogen 4.0 < = 1.0 MG/DL Urine Leukocyte Esterase NEGATIVE NEGATIVE Urine RBC (Auto) 3+ H NEGATIVE Urine RBC 2-5 H /HPF Urine WBC 2-5 /HPF Urine Crystals PRESENT H /LPF Urine Amorphous Sediment LARGE LEE ANN URATES H /LPF Urine Bacteria MODERATE H /HPF Urine Casts NONE /LPF Urine Mucus NEGATIVE /LPF Urine Culture Indicated CULTURE PENDING Urine Opiates Screen NEGATIVE NEGATIVE Urine Oxycodone Screen NEGATIVE NEGATIVE Urine Methadone Screen NEGATIVE NEGATIVE Urine Propoxyphene Screen NEGATIVE NEGATIVE Urine Barbiturates Screen NEGATIVE NEGATIVE Ur Tricyclic Antidepressants Screen NEGATIVE NEGATIVE Urine Phencyclidine Screen NEGATIVE NEGATIVE Urine Amphetamines Screen POSITIVE H NEGATIVE Urine Methamphetamines Screen POSITIVE H NEGATIVE Urine Benzodiazepines Screen NEGATIVE NEGATIVE Urine Cocaine Screen NEGATIVE NEGATIVE Urine Cannabinoids Screen NEGATIVE NEGATIVE Test 07/15/21 19:35 Range/Units Blood Gas Puncture Site L RADIAL Blood Gas Patient Temperature 38.0 Arterial Blood pH 7.28 *L 7.37-7.43 Arterial Blood Partial Pressure CO2 42 35-45 MMHG Arterial Blood Partial Pressure O2 126 H 79-93 MMHG Arterial Blood HCO3 19 L 23-27 MMOL/L Arterial Blood Total CO2 20.4 L 21.0-31.0 MMOL/L Arterial Blood Oxygen Saturation 98 94-100 % Arterial Blood Base Excess -6.2 L -2.5-2.5 MMOL/L Luis Test YES-POS Blood Gas Ventilator Setting YES Blood Gas Inspired Oxygen 30 (AMIE HASKINS) My Orders Orders - AMIE HASKINS Chest 1 View, Ap/Pa Only (07/15/21 18:18) Propofol Drip (Icu) (Diprivan Drip (Icu) (07/15/21 19:00) Norepinephrine 8 Mg/250 Ml (Norepinephri (07/15/21 19:00) Ns Iv 1000 Ml (Sodium Chloride 0.9%) (07/15/21 19:00) Arterial Blood Gas (07/15/21 19:16) Acetaminophen Suppository (Tylenol Suppo (07/15/21 19:30) (AMIE HASKINS) Medications Given in ED Current Medications Medications Dose Ordered Sig/Rory Route Start Time Stop Time Status Last Admin Dose Admin Lactated Ringer's 1,000 ml @ ud STK-MED ONCE IV 07/15/21 16:00 07/15/21 16:03 DC 07/15/21 16:00 1,000 MLS/HR Lorazepam 1 mg ONCE ONCE IVP 07/15/21 16:45 07/15/21 16:46 DC 07/15/21 17:12 1 MG Piperacillin Sod/ Tazobactam Sod 4.5 gm/Sodium Chloride 100 ml @ 200 mls/hr ONCE ONCE IV 07/15/21 18:00 07/15/21 18:29 DC 07/15/21 19:20 200 MLS/HR Propofol 100 ml @ ud STK-MED ONCE IV 07/15/21 17:58 07/15/21 18:00 DC 07/15/21 18:14 25.9 MLS/HR Sodium Chloride 1,000 ml @ 0 mls/hr Q0M ONCE IV 07/15/21 16:45 07/15/21 16:46 DC 07/15/21 16:49 1,000 MLS/HR Sodium Chloride 1,000 ml @ 0 mls/hr Q0M ONCE IV 07/15/21 18:00 07/15/21 18:01 DC 07/15/21 18:21 1,000 MLS/HR (AMIE HASKINS) Vital Signs/I&O 07/15/21 07/15/21 07/15/21 07/15/21 15:40 18:02 18:14 18:57 Temp 37.6 Pulse 147 133 128 Resp 26 15 B/P (MAP) 114/101 (105) 103/50 73/49 Pulse Ox 97 100 O2 Delivery Room Air FiO2 100 07/15/21 19:01 Pulse 117 B/P (MAP) 109/77 (AMIE HASKINS) Vital Signs/I&O Capillary Refill : (SINA BARCENAS MD) Blood Pressure Mean: 105 Progress Note : Progress Note Seen and evaluated. Patient is a very hard IV stick stick. I was able to place 20-gauge to the left lower bicep area via ultrasound guidance x1 stick without complications. Blood easily drawn and flushed well. Sepsis protocol initiated with LR 1 L bolus initiated. She is quite tachycardic and not sure if this is toxic effect from methamphetamine versus sepsis. We will check total CK and likely continued IV fluids. 1806: Patient pulled IV that was placed via ultrasound. Lactic acid markedly elevated. I repeated attempts with ultrasound x3 without success. Ultimately we elected to do central line. Patient is quite altered and moving and pulling out all equipment. Ativan 2 mg IM given. This did not help. Ketamine 300 mg IM given which did finally quiet the patient enough that I was able to place central line to the right IJ. Intubation accomplished after via RSI. Versed 5 mg IV and fentanyl 50 mcg IV given after intubation. Placed on ventilator at rate of 15, tidal volume 400, PEEP of 5 and FiO2 at 60%. We will adjust as needed. O2 saturations remained 97% or above throughout intubation procedure and after. Post intubation and central line x- ray noted NG tube in good position. ET tube right at the monica and was backed up 2 cm. Central line tract into the right subclavian. This will be replaced by Dr. Haskins in the left IJ. I did discuss the case with Dr. Arrington who accepts patient for admission. Zosyn 4.5 g IV and vancomycin weight-based dosing ordered. We have given 1 L of LR and I have ordered 2 additional liters of normal saline for lactic acid greater than 4 (it is actually greater than 9). UTI noted. Chest x-ray does show multi lobar infiltrates and I do believe there is concern for aspiration since she was found facedown in the yard with vomit all over her. I did discuss the case with the eICU team and gave report including current findings and situation. They agree with current care. Propofol will be started at 60 mcg/kg/min. Estimated weight of 160 [address] Arrington will put in orders. 1824: I did discuss the case with patient's mother, Ann Ribeiro. Her phone number is [phone]. Apparently she has been on the street for the last 2 weeks and using quite a bit of drugs. The mother is hoping to get mental health evaluation so she can petition the court for supervisory authority. Patient has had multiple overdoses and multiple ICU admissions. Mother is at her wits end and asking for any help that we can give her. I did explain the critical nature of the case to the patient's mother and she states she understands. Admit to the ICU. (SINA BARCENAS MD) Progress Note #1: Time: 18:37 Progress Note The care of the patient at shift change. She is admitted and orders are input by inpatient medicine. We did add an extra 5 mg of Versed and initiated a 50 mg propofol bolus as well as to run at 60 mL an hour. As expected she had a little transient dip in her blood pressure down to 86 systolic. We put her in Trendelenburg and put the initial 2 L of fluid that were ordered on pressure bags and her pressure is recovering. Progress Note #2: Time: 18:48 Progress Note Oh antibiotics are started she is on her vancomycin. She has 1 L of LR and and about half of each of the second and third liter going in under pressure bag. She is in Trendelenburg position. Combination of the sedatives and antibiotics as likely resulted in her blood pressure taking down to 70 systolic. As we finish pressure bagging in the fluids we will also start some Levophed but her blood pressure seemed to improve a little bit with Trendelenburg. She is overbreathing the vent likely as we decreased her sedation. Propofol down to 30 mg/kg/min. Levophed started at 0.1 mg/kg/min. Progress Note #3: Time: 19:18 Progress Note Initiated Levophed at 0.1 mcg/kg/min and the patient's pressure came up nicely to 107 systolic. We started titrating her propofol back up as needed and took her out of Trendelenburg and she has maintained good pressure. Continuing her antibiotics. Her first 3 L of fluids were in. We are starting normal saline at 250 an hour and getting her 650 mg of rectal Tylenol for her fever of 38 degrees. Repeat ABG was sent for. Progress Note #4: Time: 19:53 Progress Note ABG demonstrates what I suspect is improving metabolic acidosis with incomplete compensation. We will switch her to SIMV which is helped with her bucking. She is breathing about 30 to 40 breaths a minute. Give a pressure support of 15 L/min and she is pulling anywhere from about 300-400 tidal volume. We increased her set tidal volume to 480 still at 15 breaths/min and decreased her FiO2 to 27%. Patient's pressure is tolerating her pressors and sedatives. Zosyn is going in. (AMIE HASKINS) ECG Initial ECG Impression Date: Jul 15, 2021 Initial ECG Impression Time: 15:37 Initial ECG Rate: 153 Initial ECG Rhythm: S.Tach Comment Sinus tachycardia with left atrial enlargement. Normal axis. No evidence of ST elevation SD. Similar to previous of 06/25/2021. Interpreted by me. (SINA BARCENAS MD) Diagnostic Imaging Diagonstic Imaging: Xray Plain Films/CT/US/NM/MRI: chest Comments [facility]. [place], [place] NAME: YASMEEN RIBEIRO [facility] REC#: [id number] PT STATUS: REG ER : 1980 PHYSICIAN: SINA BARCENAS MD ADMIT DATE: 07/15/21/ER Signed Date of Exam:07/15/21 CHEST 1 VIEW, AP/PA ONLY EXAMINATION: Chest 1 view. HISTORY: Altered mental status. Found down. Fever. Shortness of breath. COMPARISON: 12/02/2020. FINDINGS: Endotracheal tube is seen with the tip at the level of the monica. Enteric tube is seen descending below the diaphragm. A right internal jugular central line is visualized with the tip oriented toward the right axilla. Patchy opacities are seen throughout the lungs. No large pleural effusion or pneumothorax. The cardiac silhouette is unremarkable. No acute osseous abnormality. IMPRESSION: 1. Patchy opacities throughout the lungs, which may represent multifocal pneumonia. Recommend continued close follow-up. 2. Endotracheal tube at the level of the monica. Recommend pulling back 4 cm. 3. Malposition of the right internal jugular central line with the tip oriented toward the right axilla. Recommend repositioning. Dictated by: Dictated on workstation # [id number] Dict: 07/15/21 180 Trans: 07/15/211813 [facility] [id number] Interpreted by: YUMIKO GREEN DO Electronically signed by: YUMIKO GREEN DO 07/15/211813 (SINA BARCENAS MD) Diagonstic Imaging: Xray Plain Films/CT/US/NM/MRI: chest Comments [facility] [place], [place] NAME: YASMEEN RIBEIRO [facility] REC#: [id number] PT STATUS: ADM IN : 1980 PHYSICIAN: AMIE HASKINS MD ADMIT DATE: 07/15/21/ICU Signed Date of Exam:07/15/21 CHEST 1 VIEW, AP/PA ONLY EXAMINATION: Chest 1 view. HISTORY: Central line placement. COMPARISON: Chest radiograph performed earlier the same date. FINDINGS: A central line has been placed via left internal jugular approach with the tip overlying the upper SVC. The endotracheal tube has been pulled back and is now approximately 4 cm above the monica. Enteric tube is seen overlying the stomach. A likely catheter is again seen with the tip oriented toward the right axilla. Patchy opacities are again seen scattered throughout the lungs. No focal consolidation is seen. No pleural effusion or pneumothorax. IMPRESSION: 1. Interval placement of a left internal jugular central line with the tip overlying the upper SVC. 2. Interval retraction of the endotracheal tube now approximately 4 cm above the monica. Dictated by: Dictated on workstation # [id number] Dict: 07/15/21 1844 Trans: 07/15/211905 [facility] [id number] Interpreted by: YUMIKO GREEN DO Electronically signed by: YUMIKO GREEN DO 07/15/211905 Reviewed: Reviewed by Me (AMIE HASKINS) Critical Care Note Critical Care Start Time: 15:45 Stop Time: 18:30 Total Time (minutes) 60 Progress Critical care time excludes separately billable procedures. (SINA BARCENAS MD) Departure Communication (Admissions) Time/Spoke to Admitting Phy: 18:00 Time/Spoke to Consulting Phy: 18:10 (SINA BARCENAS MD) Impression Primary Impression: Multilobar lung infiltrate Additional Impressions: Septic shock Urinary tract infection Qualified Codes: N30.00 - Acute cystitis without hematuria Methamphetamine abuse Encephalopathy acute Disposition: ADMITTED INPATIENT Condition: Critical Admissions Decision to Admit Reason: Admit from ER (General) Decision to Admit/Date: Jul 15, 2021 Time/Decision to Admit Time: 18:00 (SINA BARCENAS MD) Departure-Patient Inst. Referrals: [facility] (PCP/Family) Primary Care Physician Scripts No Active Prescriptions or Reported Meds SINA BARCENAS MD Jul 15, 2021 16:34 AIME HASKINS Jul 15, 2021 18:39
[2021-07-15 16:35] LABS: TOTAL PROTEIN 6.4 GM/DL (6.4-8.2)
[2021-07-15 16:37] LABS: BILIRUBIN,URINE 1+ (NEGATIVE); CLARITY,URINE CLEAR; COLOR,URINE YELLOW; GLUCOSE, URINE (UA) NEGATIVE (NEGATIVE); KETONES,URINE NEGATIVE (NEGATIVE); LEUKOCYTE ESTERASE ,URINE NEGATIVE (NEGATIVE); NITRITE,URINE POSITIVE (NEGATIVE); PROTEIN,URINE 2+ (NEGATIVE)
[2021-07-15 16:37] LABS: BILIRUBIN,TOTAL 1.8 MG/DL (0.1-1.0)
[2021-07-15 16:39] LABS: CREATININE SERUM 1.27 MG/DL (0.60-1.30)
[2021-07-15 16:41] LABS: MAGNESIUM 2.5 MG/DL (1.6-2.4)
[2021-07-15] MEDS ORDERED: NS IV 1000 ML 1,000 ML IV ONE ×2 (16:45→18:00)
[2021-07-15] MEDS: LORazepam INJ 2 MG/ML (ATIVAN) VIAL IVP ONE ×2 (16:50→17:12)
[2021-07-15 17:04] LABS: BACTERIA,URINE MODERATE /HPF
[2021-07-15 17:05] LABS: AMORPHOUS SEDIMENT,UR LARGE AMOR URATES /LPF
[2021-07-15 17:08] LABS: SALICYLATE < 5.0 MG/DL (5.0-20.0)
[2021-07-15 17:09] LABS: ACETAMINOPHEN < 10 UG/ML (10-30)
[2021-07-15 17:20] LABS: ATYPICAL LYMPHOCYTES 2 %; BAND NEUTROPHILS 9 %; LYMPHOCYTES % (MANUAL) 4 %; METAMYELOCYTES % 3 %; MONOCYTES % (MANUAL) 1 %; MYELOCYTES % 1 %; NEUTROPHILS % (MANUAL) 80 %; RBC MORPH NORMAL
[2021-07-15 17:22] LABS: AMPHETAMINE SCREEN, URINE POSITIVE (NEGATIVE); BARBITURATE SCREEN URINE NEGATIVE (NEGATIVE); BENZODIAZEPINES SCREEN URINE NEGATIVE (NEGATIVE); CANNABINOID SCREEN, URINE NEGATIVE (NEGATIVE); COCAINE SCREEN URINE NEGATIVE (NEGATIVE); METHADONE STAT NEGATIVE (NEGATIVE); METHAMPHETAMINE SCREEN URINE S POSITIVE (NEGATIVE); OPIATE SCREEN URINE NEGATIVE (NEGATIVE); OXYCODONE STAT NEGATIVE (NEGATIVE); PROPOXYPHENE STAT NEGATIVE (NEGATIVE); TRICYCLIC ANTIDEPRESSANTS SCRE NEGATIVE (NEGATIVE)
[2021-07-15] MEDS ORDERED: PROPOFOL DRIP (ICU) 100 ML IV ONE (17:58)
[2021-07-15] MEDS ORDERED: PIPERACILLIN SODIUM/TAZOBACTAM 4.5 GM in NS (IVPB) 100 ML IV ONE (18:00)
--- NOTE | 2021-07-15 18:04 | History & Physical-Hospitalist ---
History of Present Illness HPI/Chief Complaint Chief complaint: Respiratory failure History present illness: This is a 40-year-old white female who presented with altered mental status and meth use was found to have 103 fever and a multitude of other issues which resulted in significant decompensation requiring intubation. Bilateral pneumonia will be treated with Zosyn and vancomycin. Exam Limitations: clinical condition Date Seen 07/15/21 Time Seen by a Provider: 18:00 Attending Physician [facility] Referring Physician Date of Admission Home Medications & Allergies Home Medications Reviewed patient Home Medication Reconciliation performed by pharmacy medication reconciliations military pay technician and/or nursing. Patients Allergies have been reviewed. Allergies Allergies Coded Allergies No Known Drug Allergies (Bzwicdoyfw64/1/21) Past Djfzaij-Uhxrbq-Tjoqav Hx Patient Social History Marrital Status: single Employed/Student: unemployed Tobacco Use?: Yes Tobacco type used: Cigarettes Substance use?: Yes Substance type: Amphetamines, Methamphetamine, Marijuana Substance frequency: Daily Alcohol Use?: Unable to obtain Immunizations Up To Date First/Initial COVID19 Vaccinat: 05/05 Second COVID19 Vaccination Bayron: 05/05 Tetanus Booster (TDap): Unknown Current Status status: Unable to obtain status: Unable to obtain Primary Language: [place] Preferred Spoken Language: [place] Past Medical History Surgeries: Gallbladder Renal Failure Family Medical History Reviewed Nursing Family Hx No Pertinent Family Hx Review of Systems ROS-Unable to Obtain: Intubated Constitutional: see HPI Physical Exam Physical Exam Vital Signs Vital Signs - First Documented 07/15/21 07/15/21 07/15/21 15:40 18:02 20:30 Temp 37.6 Pulse 147 Resp 26 B/P (MAP) 114/101 (105) Pulse Ox 97 O2 Delivery Room Air O2 Flow Rate 60.00 FiO2 100 Capillary Refill : Height, Weight, BMI Height: 5'8.00" Weight: 167lbs. 0.0oz. 75.907916zj; 23.00 BMI Method:Estimated General Appearance: No Apparent Distress, Chronically ill, Other (Intubated) Respiratory: No Accessory Muscle Use, No Respiratory Distress, Decreased Breath Sounds Cardiovascular: Regular Rate, Rhythm Results Results/Procedures Labs Laboratory Tests 07/15/21 15:55 07/16/21 02:33 Patient resulted labs reviewed. Assessment/Plan Admission Diagnosis Assessment: Respiratory failure requiring intubation Bilateral pneumonia Meth use Fever Hyponatremia Leukocytosis Rhabdomyolysis Plan: Vent management ICU IV antibiotics Admission Status: Inpatient Order (span 2 midnights) Reason for Inpatient Admission: Respiratory failure Diagnosis/Problems Diagnosis/Problems (1) Multilobar lung infiltrate Status: Acute (2) Sepsis Status: Acute (3) Methamphetamine abuse Status: Acute SHERRILL CASAS DO Jul 15, 2021 18:04
--- NOTE | 2021-07-15 18:13 | Diagnostic Imaging Report ---
EXAMINATION: Chest 1 view. HISTORY: Altered mental status. Found down. Fever. Shortness of breath. COMPARISON: 12/02/2020. FINDINGS: Endotracheal tube is seen with the tip at the level of the monica. Enteric tube is seen descending below the diaphragm. A right internal jugular central line is visualized with the tip oriented toward the right axilla. Patchy opacities are seen throughout the lungs. No large pleural effusion or pneumothorax. The cardiac silhouette is unremarkable. No acute osseous abnormality. IMPRESSION: 1. Patchy opacities throughout the lungs, which may represent multifocal pneumonia. Recommend continued close follow-up. 2. Endotracheal tube at the level of the monica. Recommend pulling back 4 cm. 3. Malposition of the right internal jugular central line with the tip oriented toward the right axilla. Recommend repositioning. Dictated by: Dictated on workstation # [id number]
[2021-07-15] MEDS: VANCOMYCIN INJECTION 750 MG in NS (IVPB) 250 ML IV SCH ×2 (18:21→21:25)
[2021-07-15] MEDS: NS IV 1000 ML 1,000 ML IV SCH ×3 (18:30→21:25)
[2021-07-15] MEDS ORDERED: NOREPINEPHRINE 8 MG/250 ML 250 ML IV ONE (18:47)
--- NOTE | 2021-07-15 18:56 | Diagnostic Imaging Report ---
EXAMINATION: Chest 1 view. HISTORY: Central line placement. COMPARISON: Chest radiograph performed earlier the same date. FINDINGS: A central line has been placed via left internal jugular approach with the tip overlying the upper SVC. The endotracheal tube has been pulled back and is now approximately 4 cm above the monica. Enteric tube is seen overlying the stomach. A likely catheter is again seen with the tip oriented toward the right axilla. Patchy opacities are again seen scattered throughout the lungs. No focal consolidation is seen. No pleural effusion or pneumothorax. IMPRESSION: 1. Interval placement of a left internal jugular central line with the tip overlying the upper SVC. 2. Interval retraction of the endotracheal tube now approximately 4 cm above the monica. Dictated by: Dictated on workstation # [id number]
[2021-07-15] MEDS: NOREPINEPHRINE 8 MG/250 ML 250 ML IV SCH ×2 (18:57→19:01)
[2021-07-15] MEDS ORDERED: PROPOFOL DRIP (ICU) 100 ML IV SCH ×2 (19:00→19:15)
--- NOTE | 2021-07-15 19:02 | Tele-ICU Consult ---
History of Present Illness History of Present Illness Date Seen by Provider: Jul 15, 2021 Time Seen by Provider: 19:01 Allergies and Home Medications Allergies Coded Allergies: No Allergy Information Available (Unverified , 11/19/15) Home Medications Valacyclovir HCl 500 Mg Tablet, 1,000 MG PO TID Prescribed by: SHERRILL CASAS on 12/05/20 1211 Past Medical/Social/Family Hx Patient Social History Tobacco Use?: Yes Tobacco type used: Cigarettes Substance use?: Yes Substance type: Amphetamines, Methamphetamine, Marijuana Substance frequency: Daily Alcohol Use?: Unable to obtain Immunizations Up To Date First/Initial COVID19 Vaccinat: 05/05 Second COVID19 Vaccination Bayron: 05/05 Tetanus Booster (TDap): Unknown Current Status status: Unable to obtain status: Unable to obtain Primary Language: Irish Preferred Spoken Language: Irish Review of Systems Constitutional: no symptoms reported Sepsis Event Evaluation Height, Weight, BMI Height: 5'8.00" Weight: 167lbs. 0.0oz. 75.792145nv; 23.00 BMI Method:Estimated Exam Exam Patient acknowledged, consented, and participated in this virtual visit which was conducted using real time audio/video Vital Signs Date Time Temp Pulse Resp B/P (MAP) Pulse Ox O2 Delivery O2 Flow Rate FiO2 07/15/21 18:57 73/49 07/15/21 18:14 128 103/50 07/15/21 18:02 133 15 100 100 07/15/21 15:40 37.6 147 26 114/101 (105) 97 Room Air Height & Weight Height: 5'8.00" Weight: 167lbs. 0.0oz. 75.863933oo; 23.00 BMI Method:Estimated General Appearance: Anxious, Mild Distress HEENT: PERRL/EOMI, Pharynx Normal, Other (Vomit noted on face) Neck: Non Tender, Supple Respiratory: Lungs Clear, Normal Breath Sounds Cardiovascular: No Murmur, Tachycardia Extremity: Normal Range of Motion, Non Tender, No Calf Tenderness Neurologic/Psychiatric: Alert, Disoriented (Place and time), Other (Anxious and repeating) Results Lab Laboratory Tests 07/15/21 15:55 Assessment/Plan Assessment/Plan cc ams hpi 41 yo female presented to ed after being found having emesis. Note is per ER note, as i am not bedside and am remotely looking at the notes. Patient complained of abd pain, and agitated in ed. Eventually intubated and lines placed. Of note patient recently in ER with methampatamine abuse. Signout from ed physician given to previous [facility] physician. Patient is now up in the ICU. She is sedated and orally intubated. Currently propofol and fentnyl running. Fredrick has been seen by the primary care physician. pmhx: drug abuse, unk pshx: unk social unk. tobacco, unk etoh, +drugs allergy:nkda ros: as above, unable to complete pe: Vitals reviewed exam is per bedside physicians labs see emar rads see emar White Blood Count 16.5 H 4.3-11.0 10^3/uL Red Blood Count 4.00 3.80-5.11 10^6/uL Hemoglobin 11.8 11.5-16.0 g/dL Hematocrit 36 35-52 % Mean Corpuscular Volume 91 80-99 fL Mean Corpuscular Hemoglobin 30 25-34 pg Mean Corpuscular Hemoglobin Concent 33 32-36 g/dL Red Cell Distribution Width 14.4 10.0-14.5 % Platelet Count 191 130-400 10^3/uL Mean Platelet Volume 11.1 9.0-12.2 fL Immature Granulocyte % (Auto) 1 % Neutrophils (%) (Auto) 92 H 42-75 % Lymphocytes (%) (Auto) 3 L 12-44 % Monocytes (%) (Auto) 3 0-12 % Eosinophils (%) (Auto) 0 0-10 % Basophils (%) (Auto) 0 0-10 % Neutrophils # (Auto) 15.3 H 1.8-7.8 X 10^3 Lymphocytes # (Auto) 0.5 L 1.0-4.0 X 10^3 Monocytes # (Auto) 0.5 0.0-1.0 X 10^3 Eosinophils # (Auto) 0.0 0.0-0.3 10^3/uL Basophils # (Auto) 0.0 0.0-0.1 10^3/uL Immature Granulocyte # (Auto) 0.2 H 0.0-0.1 10^3/uL Neutrophils % (Manual) 80 % Lymphocytes % (Manual) 4 % Monocytes % (Manual) 1 % Metamyelocytes % 3 % Myelocytes % 1 % Band Neutrophils 9 % Atypical Lymphocytes 2 % Blood Morphology Comment NORMAL Prothrombin Time 15.5 H 12.2-14.7 SEC INR Comment 1.2 0.8-1.4 Activated Partial Thromboplast Time 29 24-35 SEC Sodium Level 120 *L 135-145 MMOL/L Potassium Level 4.6 3.6-5.0 MMOL/L Chloride Level 88 L 98-107 MMOL/L Carbon Dioxide Level 12 L 21-32 MMOL/L Anion Gap 20 H 5-14 MMOL/L Blood Urea Nitrogen 38 H 7-18 MG/DL Creatinine 1.27 0.60-1.30 MG/DL Estimat Glomerular Filtration Rate 47 BUN/Creatinine Ratio 30 Glucose Level 114 H 70-105 MG/DL Lactic Acid Level 9.04 *H 0.50-2.00 MMOL/L Calcium Level 8.5 8.5-10.1 MG/DL Corrected Calcium 9.5 8.5-10.1 MG/DL Magnesium Level 2.5 H 1.6-2.4 MG/DL Total Bilirubin 1.8 H 0.1-1.0 MG/DL Aspartate Amino Transf (AST/SGOT) 183 H 5-34 U/L Alanine Aminotransferase (ALT/SGPT) 76 H 0-55 U/L Alkaline Phosphatase 133 40-136 U/L Total Creatine Kinase 1663 H 29-168 U/L C-Reactive Protein High Sensitivity 31.14 H 0.00-0.50 MG/DL Total Protein 6.4 6.4-8.2 GM/DL Albumin 2.8 L 3.2-4.5 GM/DL Lipase 38 8-78 U/L Procalcitonin 66.79 H <0.10 NG/ML Salicylates Level < 5.0 L 5.0-20.0 MG/DL Acetaminophen Level < 10 L 10-30 UG/ML Serum Alcohol < 10 <10 MG/DL Influenza Type A (RT-PCR) Not Detected Not Detecte Influenza Type B (RT-PCR) Not Detected Not Detecte SARS-CoV-2 RNA (RT-PCR) Not Detected Not Detecte CULTURE PENDING Urine Opiates Screen NEGATIVE NEGATIVE Urine Oxycodone Screen NEGATIVE NEGATIVE Urine Methadone Screen NEGATIVE NEGATIVE Urine Propoxyphene Screen NEGATIVE NEGATIVE Urine Barbiturates Screen NEGATIVE NEGATIVE Ur Tricyclic Antidepressants Screen NEGATIVE NEGATIVE Urine Phencyclidine Screen NEGATIVE NEGATIVE Urine Amphetamines Screen POSITIVE H NEGATIVE Urine Methamphetamines Screen POSITIVE H NEGATIVE Urine Benzodiazepines Screen NEGATIVE NEGATIVE Urine Cocaine Screen NEGATIVE NEGATIVE Urine Cannabinoids Screen NEGATIVE NEGATIVE PCT 67 1. Acute resp failure vent order set sedation/pain control sat/sbt 2. Acute Drug Abuse supportive care 3. Acute lactic acidosis r/o intraabd. process CT with IV contrast abd. la per protocol q6 hours 4. Sepsis pna vs intra. source elevated pct elevated la eleveated wbc ct as above vanc/zosyn cultures sepsis protocol see orders Critical Care: Critically Ill Patient RENNY JEAN-BAPTISTE DO Jul 15, 2021 19:02
[2021-07-15] MEDS ORDERED: fentaNYL DRIP PRE-MIX 250 ML IV SCH (19:15)
[2021-07-15] MEDS ORDERED: ACETAMINOPHEN 650 MG SUPP (TYLENOL) PR ONE (19:30)
[2021-07-15 19:43] LABS: ABG BASE EXCESS -6.2 MMOL/L (-2.5-2.5); ABG OXYGEN SATURATION 98 % (94-100); ABG PCO2 42 MMHG (35-45); ABG PO2 126 MMHG (79-93); ABG TCO2 20.4 MMOL/L (21.0-31.0)
[2021-07-15] MEDS ORDERED: NS IV 1000 ML 1,000 ML IV SCH (19:45)
[2021-07-15] MEDS ORDERED: MIDAZOLAM DRIP PRE-MIX 100 ML IV SCH (19:45)
[2021-07-15] MEDS ORDERED: VANCOMYCIN INJECTION 0.1 MG in NS (IVPB) 250 ML IV SCH ×2 (19:45→21:30)
[2021-07-15] MEDS ORDERED: PIPERACILLIN/TAZOBACTAM (BULK) 4.5 GM in NS (IVPB) 100 ML IV SCH (19:45)
[2021-07-15] MEDS ORDERED: ENOXAPARIN 40 MG/0.4 ML (LOVENOX) SYR SC SCH ×2 (19:45→21:00)
[2021-07-15] MEDS ORDERED: HALOPERIDOL 5 MG/ML (HALDOL) VIAL IV PRN (19:45)
[2021-07-15 19:46] LABS: ABG PH 7.28 (7.37-7.43)
[2021-07-15 19:47] LABS: ALLENS TEST YES-POS; INSPIRED O2 30; VENTILATOR YES
[2021-07-15] MEDS ORDERED: NS (IVPB) 250 ML ONE (21:24)
[2021-07-15] MEDS ORDERED: fentaNYL DRIP PRE-MIX 250 ML IV ONE (21:30)
[2021-07-15] MEDS ORDERED: ENOXAPARIN 40 MG/0.4 ML (LOVENOX) SYR ONE (21:30)
[2021-07-15] MEDS: FAMOTIDINE 20MG/2ML IV (PEPCID) IVP SCH (21:46)
[2021-07-15] MEDS: PROPOFOL DRIP (ICU) 100 ML IV SCH (22:47)
[2021-07-15] MEDS: fentaNYL DRIP PRE-MIX 250 ML IV SCH (22:48)
[2021-07-15 23:03] VITALS: BP 114/101
[2021-07-15] MEDS: PIPERACILLIN/TAZOBACTAM (BULK) 4.5 GM in NS (IVPB) 100 ML IV SCH (23:11)
[2021-07-15] MEDS ORDERED: RT-ALBUTEROL SULF 2.5 MG/3 ML PRE-MIX VIAL INH PRN (23:15)
[2021-07-16] MEDS ORDERED: APAP 325 MG/10.15 ML LIQ (TYLENOL) UDC ONE ×2 (00:49→00:59)
[2021-07-16] MEDS: APAP 325 MG/10.15 ML LIQ (TYLENOL) UDC PO PRN ×2 (01:17→12:11)
[2021-07-16] MEDS: NS IV 1000 ML 1,000 ML IV SCH ×5 (01:17→23:44)
[2021-07-16] MEDS: DexMEDEtomidine 250 ML DRIP 250 ML IV SCH (01:19)
[2021-07-16] MEDS: RT-ALBUTEROL SULF 2.5 MG/3 ML PRE-MIX VIAL INH SCH ×6 (03:02→22:06)
[2021-07-16 03:25] LABS: BASOPHILS # (AUTO) 0.1 10^3/uL (0.0-0.1); BASOPHILS % (AUTO) 1 % (0-10); EOSINOPHILS % (AUTO) 0 % (0-10); HEMATOCRIT 34 % (35-52); HEMOGLOBIN 11.3 g/dL (11.5-16.0); LYMPHOCYTES # (AUTO) 0.6 10^3/uL (1.0-4.0); LYMPHOCYTES % (AUTO) 7 % (12-44); MEAN CORPUSCULAR HEMOGLOBIN 29 pg (25-34); MEAN CORPUSCULAR HGB CONC 33 g/dL (32-36); MEAN CORPUSCULAR VOLUME 89 fL (80-99); MEAN PLATELET VOLUME 12.2 fL (9.0-12.2); MONOCYTES # (AUTO) 0.3 10^3/uL (0.0-1.0); MONOCYTES % (AUTO) 3 % (0-12); NEUTROPHILS # (AUTO) 7.7 10^3/uL (1.8-7.8); NEUTROPHILS % (AUTO) 89 % (42-75); PLATELET COUNT 162 10^3/uL (130-400); WHITE BLOOD COUNT 8.6 10^3/uL (4.3-11.0)
[2021-07-16 03:31] LABS: ALBUMIN 2.3 GM/DL (3.2-4.5); POTASSIUM 4.2 MMOL/L (3.6-5.0)
[2021-07-16 03:33] LABS: CALCIUM 7.2 MG/DL (8.5-10.1)
[2021-07-16 03:34] LABS: TOTAL PROTEIN 5.2 GM/DL (6.4-8.2)
[2021-07-16 03:36] LABS: BILIRUBIN,TOTAL 1.5 MG/DL (0.1-1.0)
[2021-07-16 03:37] LABS: PHOSPHORUS 4.1 MG/DL (2.3-4.7)
[2021-07-16 03:38] LABS: CREATININE SERUM 1.02 MG/DL (0.60-1.30)
[2021-07-16 03:40] LABS: MAGNESIUM 2.3 MG/DL (1.6-2.4)
[2021-07-16] MEDS ORDERED: MAGNESIUM 1 GM/100 ML IVPB 200 ML IV ONE (03:53)
[2021-07-16] MEDS: POTASSIUM CL 10MEQ/50ML IVPB 50 ML IV SCH (04:01)
[2021-07-16] MEDS: MAGNESIUM 1 GM/100 ML IVPB 100 ML IV SCH ×3 (04:01→05:00)
[2021-07-16] MEDS: KCL 20 MEQ TAB (K-DUR) PO SCH (04:01)
[2021-07-16 05:26] LABS: ABG BASE EXCESS -9.7 MMOL/L (-2.5-2.5); ABG OXYGEN SATURATION 97 % (94-100); ABG PCO2 30 MMHG (35-45); ABG PO2 98 MMHG (79-93); ABG TCO2 16.1 MMOL/L (21.0-31.0)
[2021-07-16 05:28] LABS: ALLENS TEST POSITIVE; INSPIRED O2 30%; PATIENT TEMP 36.9; VENTILATOR YES
[2021-07-16 05:29] LABS: ABG PH 7.32 (7.37-7.43)
[2021-07-16] MEDS: VANCOMYCIN 1 GM/NS 250 ML IVPB IV SCH ×4 (06:08→17:46)
[2021-07-16] MEDS: PROPOFOL DRIP (ICU) 100 ML IV SCH (06:32)
--- NOTE | 2021-07-16 06:47 | Occ Therapy Progress Note ---
Therapy Progress Note Pt is currently intubated. OT will continue to monitor pt status and initiate treatment when pt is medically stable and able to actively participate in skilled therapy. ERWIN NAGY Jul 16, 2021 06:47
--- NOTE | 2021-07-16 07:25 | Diagnostic Imaging Report ---
CHEST 1 VIEW, AP/PA ONLY Indication: Intubation. Comparison: 07/15/2021 Findings: Stable ET and enteric tubes. Mild progression of bilateral multifocal pulmonary consolidations. No pleural effusion or pneumothorax. Stable cardiac silhouette. Stable left IJ central venous catheter. Impression: 1. Stable support devices. 2. Progression of bilateral pulmonary opacities are most likely due to infection. Dictated by: Dictated on workstation # [id number]
--- NOTE | 2021-07-16 07:42 | Physical Therapy Progress Note ---
Therapy Progress Note Patient currently sedated and intubated. PT will continue to follow patient status and initiate treatment when patient is medically stable and able to actively participate with skilled therapy. NILSA BROWN PT Jul 16, 2021 07:42
[2021-07-16] MEDS ORDERED: IOHEXOL 350 MG/ML 100 ML (OMNIPAQUE 350) VIAL IV ONE (07:45)
[2021-07-16] MEDS ORDERED: CATHETER FLUSH 10 ML SYR IV PRN (07:45)
[2021-07-16] MEDS ORDERED: NS 100 ML (IVPB) BAG IV ONE (07:45)
[2021-07-16] MEDS ORDERED: HOLD METFORMIN - RECEIVED CONTRAST 20 ML VIAL IV SCH (07:45)
[2021-07-16] MEDS ORDERED: NS IV 1000 ML 1,000 ML IV SCH ×2 (08:30→12:45)
[2021-07-16] MEDS ORDERED: SODIUM BICARB 8.4% 50 MEQ/50 ML (ABBOTT) SYR IV ONE (08:30)
[2021-07-16] MEDS ORDERED: ENOXAPARIN 40 MG/0.4 ML (LOVENOX) SYR SC SCH (09:00)
[2021-07-16] MEDS: PIPERACILLIN/TAZOBACTAM (BULK) 4.5 GM in NS (IVPB) 100 ML IV SCH ×3 (09:04→23:44)
[2021-07-16] MEDS: FAMOTIDINE 20MG/2ML IV (PEPCID) IVP SCH (09:04)
[2021-07-16] MEDS: PANTOPRAZOLE 40 MG (PROTONIX) VIAL IV SCH ×2 (09:04→19:42)
[2021-07-16] MEDS: NOREPINEPHRINE 8 MG/250 ML 250 ML IV SCH ×3 (09:19→20:45)
[2021-07-16 10:24] VITALS: BP 94/63
--- NOTE | 2021-07-16 12:25 | Diagnostic Imaging Report ---
PROCEDURE: CT of the abdomen with and without contrast and CT of the pelvis with contrast. TECHNIQUE: Precontrast acquisitions were acquired through the abdomen. Multiple contiguous axial images were obtained through the abdomen and pelvis after administration of intravenous contrast. Auto Exposure Controls were utilized during the CT exam to meet ALARA standards for radiation dose reduction. INDICATION: Abdominal pain and distention. COMPARISON: Exam is compared with CT abdomen and pelvis 11/19/2015. FINDINGS: There is a unilateral left pleural effusion of about 3 cm depth. No obvious pleural thickening. There are irregular cavitary nodules innumerably involving the visualized lung bases in the lower lobes, middle lobe, and lingular segment of the left upper lobe. Given additional findings and the history of drug abuse, these are presumed extensive and widespread multifocal pulmonary septic emboli. Heart is only partially visualized with no obvious intraluminal filling defect. No basilar pneumothorax. There is heterogeneous abnormal enlargement of the right lower psoas muscle and right iliacus muscle with multiple ill-defined areas of intramuscular fluid attenuation. This is presumed iliopsoas abscesses. This extends caudally through the right pelvic sidewall. No appreciable lower thoracic or lumbar vertebral body destruction or endplate irregularity. There is asymmetric unilateral swelling of the visualized right lower extremity. Just adjacent to a presumed infected portion of the iliopsoas junction, there is absence of luminal enhancement of the right lower common iliac vein extending into the right internal iliac vein. This is presumed thrombosed and may be septic and the source of the presumed multiple pulmonary septic emboli. The external iliac veins and the common femoral veins where visualized appeared normal. The cava is patent. There is fluid and air distending the right colon through the tortuous and redundant transverse colon. The left colon is decompressed. The sigmoid is nondilated. No identifiable volvulus. No pneumatosis or free gas. The small bowel is not pathologically distended. There is substantial stranding of the presacral and precoccygeal fat without bony destruction identified. Liver, spleen, adrenals, pancreas, and unobstructed kidneys are unremarkable. The bladder is catheterized by Garcia and cannot be evaluated. The uterus is unremarkable. IMPRESSION: 1. Right pelvic iliopsoas myositis and intramuscular abscesses with adjacent long segmental lower common as well as pelvic internal iliac venous thrombus, likely infected clot and presumed the source for widespread bibasilar pulmonary septic emboli. 2. Unilateral left pleural effusion is not clearly loculated but only partially visualized. 3. Likely colonic ileus without volvulus or small bowel dilatation. 4. No appreciable suspected areas of osteomyelitis or bony destruction. Small volume lower abdominal and pelvic free fluid with stranding of the pelvic fat. Critical findings were relayed by phone to Dr. Dominique Arrington at the time of dictation. Dictated by: Dictated on workstation # [id number]
--- NOTE | 2021-07-16 12:58 | Tele-ICU Progress Note ---
Subjective Date Seen by a Provider: Jul 16, 2021 Time Seen by a Provider: 08:30 Subjective/Events-last exam She is a 40-year-old female with past medical history of drug abuse presented to the emergency room with altered mental status tachycardia and tachypnea requiring intubation. Review of the records revealed that she was in the emergency room last month at which time she walked away without being completion of the work-up. According to the ER physician notes she looks like she had a suspicion of sepsis at that time. Now she required intubation and put on mechanical ventilation. This a.m. her lactic acid is going up anxiety give couple of liters of fluid bolus and started on Levophed. She is already receivi ng vancomycin IV Zosyn. Her blood cultures 2 out of 2 came out positive for staph aureus along with the urine and sputum cultures which are also positive for staph aureus. Sensitivities still pending. I have reviewed the chest x-ray results as well as a CT of the abdomen and results. CT of the abdomen revealed multiple septic emboli as well as multiple abscesses along the muscle planes including psoas muscle. Review of Systems ROS PER ATTENDING PHYSICIAN Sepsis Event Evaluation Sepsis Stage: Septic Shock Height, Weight, BMI Height: 5'8.00" Weight: 167lbs. 0.0oz. 75.082238qe; 32.65 BMI Method:Estimated Focused Exam Lactate Level 07/16/21 02:30: Lactic Acid Level 3.37*H 07/16/21 06:30: Lactic Acid Level 3.63*H 07/16/21 11:55: Lactic Acid Level 3.73*H Lactic Acid Level Laboratory Tests Test 07/16/21 11:55 Lactic Acid Level 3.73 MMOL/L (0.50-2.00) *H Exam Exam Patient acknowledged, consented, and participated in this virtual visit which was conducted using real time audio/video Vital Signs Date Time Temp Pulse Resp B/P (MAP) Pulse Ox O2 Delivery O2 Flow Rate FiO2 07/16/21 12:50 38.1 07/16/21 12:11 39.3 07/16/21 12:09 39.6 07/16/21 11:57 37.7 07/16/21 11:00 110 32 91/55 94 Mechanical Ventilator 30.00 07/16/21 10:24 109 28 94 30 07/16/21 10:00 109 99/72 94 Mechanical Ventilator 30.00 07/16/21 09:19 112 109/72 07/16/21 09:00 112 30 98/65 94 Mechanical Ventilator 30.00 07/16/21 08:00 112 30 93/67 94 Mechanical Ventilator 30.00 07/16/21 08:00 36.2 07/16/21 07:55 95 Mechanical Ventilator 30 07/16/21 07:44 36.8 112 30 91/63 96 Mechanical Ventilator 07/16/21 07:00 112 31 102/69 95 Mechanical Ventilator 30.00 07/16/21 07:00 112 07/16/21 06:57 112 30 96 30 07/16/21 06:32 113 95/65 07/16/21 06:00 112 28 95/65 95 Mechanical Ventilator 30.00 07/16/21 05:00 116 20 96/65 94 Mechanical Ventilator 30.00 07/16/21 04:00 95 Mechanical Ventilator 30 07/16/21 04:00 126 29 96/65 95 Mechanical Ventilator 30.00 07/16/21 03:55 36.8 Mechanical Ventilator 30.00 07/16/21 03:03 131 30 94 30 07/16/21 03:00 134 30 100/65 90 Mechanical Ventilator 30.00 07/16/21 02:01 37.2 07/16/21 02:00 140 32 103/68 94 Mechanical Ventilator 30.00 07/16/21 01:19 141 103/69 07/16/21 01:17 38.0 07/16/21 01:00 140 07/16/21 01:00 141 35 106/71 94 Mechanical Ventilator 30.00 07/16/21 00:30 37.4 07/16/21 00:00 140 35 110/69 94 Mechanical Ventilator 30.00 07/15/21 23:10 92 Mechanical Ventilator 30 07/15/21 23:10 38.0 Mechanical Ventilator 30.00 07/15/21 23:03 37.6 147 97 21 07/15/21 23:00 126 35 112/76 97 Mechanical Ventilator 30.00 07/15/21 22:47 130 105/72 07/15/21 22:15 126 35 112/76 97 Mechanical Ventilator 30.00 07/15/21 22:10 Mechanical Ventilator 30 07/15/21 21:46 124 100/67 07/15/21 21:45 123 36 100/67 97 Mechanical Ventilator 30.00 07/15/21 21:21 36 96 30 07/15/21 21:15 117 26 99/68 98 Mechanical Ventilator 30.00 07/15/21 21:00 Mechanical Ventilator 30.00 07/15/21 21:00 118 26 92/61 96 Mechanical Ventilator 30.00 07/15/21 20:54 119 07/15/21 20:45 120 24 102/75 99 Mechanical Ventilator 60.00 07/15/21 20:30 37.0 121 26 194/99 98 Mechanical Ventilator 60.00 07/15/21 19:57 37.1 118 15 104/85 100 Room Air 07/15/21 19:01 117 109/77 07/15/21 18:57 73/49 07/15/21 18:14 128 103/50 07/15/21 18:02 133 15 100 100 07/15/21 15:40 37.6 147 26 114/101 (105) 97 Room Air I & O 07/16/21 07:00 Intake Total 5620 ml Output Total 1675 ml Balance 3945 ml Height & Weight Height: 5'8.00" Weight: 167lbs. 0.0oz. 75.382022om; 32.65 BMI Method:Estimated General Appearance: No Apparent Distress, Chronically ill, Other (Intubated) HEENT: PERRL/EOMI, Pharynx Normal, Other (Vomit noted on face) Neck: Non Tender, Supple Respiratory: No Accessory Muscle Use, No Respiratory Distress, Decreased Breath Sounds Cardiovascular: Regular Rate, Rhythm Capillary Refill: Less Than 3 Seconds Extremity: Normal Range of Motion, Non Tender, No Calf Tenderness Neurologic/Psychiatric: Alert, Disoriented (Place and time), Other (Anxious and repeating) Other comments PE per attneding. Results Lab Laboratory Tests 07/15/21 15:55 07/16/21 02:33 Meds reviewed Radiology cxr and ct abd. reviewed. Assessment/Plan Assessment/Plan 1. Severe gram-positive septic shock 2. Hypoxic respiratory failure requiring mechanical ventilation. 3. Multiple septic emboli with cavitations. 4. Multiple intramuscular abscesses in the belly. 5. History of methamphetamine abuse. 6. Rule out any endocarditis acute. Recommendations 1. Continue mechanical ventilatory support and adjust according to the blood gases 2. IV fluids with normal saline and boluses as needed 3. Repeat blood cultures 4. Continue IV Zosyn and vancomycin. 5. Suggest surgical consultation and cardiology consultation 6. We will get an echocardiogram to rule out any endocarditis especially acute. 7. Ulcer prophylaxis and DVT prophylaxis. 8. Prognosis in this kind of situation is very poor and I expect high mortality. Consider transferring to [facility] Communication sent to Dr. Chambers via the curriculum designerinsurance defense attorney: Ventilator Management Time spent with patient (mins): 35 CECILIA TUBBS MD Jul 16, 2021 12:58
--- NOTE | 2021-07-16 13:08 | Progress Note - Hospitalist ---
LORIE THAPA MED STUDENT 07/16/21 1308: Subjective HPI/CC On Admission Date Seen by Provider: Jul 16, 2021 Time Seen by Provider: 07:30 Chief complaint: Respiratory failure History present illness: This is a 40-year-old white female who presented with altered mental status and meth use was found to have 103 fever and a multitude of other issues which resulted in significant decompensation requiring intubatio n. Bilateral pneumonia will be treated with Zosyn and vancomycin. Subjective/Events-last exam Patient is lying in bed this morning supine. She is currently sedated and intubated. She does not respond to verbal or physical stimuli. She was admitted yesterday for multiple ailments. CXR read this morning was suggestive of infection which is not surprising with her clinical picture. She is slightly acidotic this morning but her vent is being actively managed by RT. She is on pr essors and continuing a course of abx with zosyn and vanc. CT abd and pelvis this morning show a thrombus that is likely the source of her infection. Review of Systems Unable to obtain due to intubation Focused Exam Lactate Level 07/16/21 02:30: Lactic Acid Level 3.37*H 07/16/21 06:30: Lactic Acid Level 3.63*H 07/16/21 11:55: Lactic Acid Level 3.73*H Lactic Acid Level Laboratory Tests Test 07/16/21 11:55 Lactic Acid Level 3.73 MMOL/L (0.50-2.00) *H Objective Exam Vital Signs Vital Signs Date Time Temp Pulse Resp B/P (MAP) Pulse Ox O2 Delivery O2 Flow Rate FiO2 07/16/21 12:50 38.1 07/16/21 11:00 110 32 91/55 94 Mechanical Ventilator 30.00 07/16/21 10:24 30 Capillary Refill : Less Than 3 Seconds General Appearance: Other (Patient is lying supine in bed, intubated and sedated. Not responsive to stimuli. Multiple lines. No apprent distress) HEENT: Pharynx Normal, Moist Mucous Membranes Neck: Supple Respiratory: Chest Non Tender, Lungs Clear, Normal Breath Sounds, No Accessory Muscle Use, No Respiratory Distress Cardiovascular: Regular Rate, Rhythm, No Edema, No Murmur, Normal Peripheral Pu lses Gastrointestinal: Normal Bowel Sounds, No Organomegaly, No Pulsatile Mass, Soft Rectal: Deferred Extremity: Normal Capillary Refill, Normal Inspection, Normal Range of Motion, No Pedal Edema Neurologic/Psychiatric: No Alert, No Oriented x3 Skin: Normal Color, Warm/Dry Results/Procedures Lab Laboratory Tests 07/15/21 15:55 07/16/21 02:33 Patient resulted labs reviewed. Assessment/Plan Assessment and Plan Assess & Plan/Chief Complaint Respiratory failure -Currently intubated, managed by RT -Pt slighty acidotic this morning on ABG, will continue to monitor Bilateral pneumonia -Continue zosyn and vanc Hyponatremia -Continuing to improve, 127 this morning -Continue to monitor w/ labs Rhabdomyolysis -IV fluids Acidosis -Repeat ABG tomorrow UTI -Continue ABX Sepsis -Source of infection likely embolus seen on CT -Continue ABX Critical Care: Ventilator Management Supervisory-Addendum Brief Verification & Attestation Participated in pt care: history, physical Personally performed: exam, history Care discussed with: Medical Student Procedures: n/a n/a DOMINIQUE CASAS DO 07/17/21 0513: Subjective Subjective/Events-last exam Pt still intubated B/L pneumonia noted and CT scan obtained by EICU showed septic emboli into the pulmonary vessels. I did speak with Dr. Thorpe who will consult because there appears to be an abcess in the hip flexor area of the abdominal wall causing septic emboli into the lungs and causing trash hands and trash foot from iliopsoas abscess we will attempt to transfer to higher level of care or on diversion from Covid surge ABG 7.32/30/98 Zosyn and Vancomycin maintained Levophed maintained Objective Exam General Appearance: Other (Patient is lying supine in bed, intubated and sedated. Not responsive to stimuli. Multiple lines. No apprent distress) Respiratory: No Accessory Muscle Use, No Respiratory Distress, Decreased Breath Sounds Cardiovascular: Regular Rate, Rhythm Assessment/Plan Assessment and Plan Assess & Plan/Chief Complaint Assessment: Assessment: Respiratory failure requiring intubation Iliopsoas abscess causing septic emboli to the lungs causing trash hands and trash feet needing transfer Bilateral pneumonia Meth use Fever Hyponatremia Leukocytosis Rhabdomyolysis Plan: Vent management ICU IV antibiotics 07/16/2021: Attempted transfer but all facilities on diversion due to Covid surge IV antibiotics Heparin drip Supervisory-Addendum Brief Verification & Attestation Participated in pt care: history, MDM, physical Personally performed: exam, history, MDM, supervision of care Care discussed with: Medical Student Procedures: n/a Results interpretation: Verified all documentation Verification and Attestation of Medical Student E/M Service A medical student performed and documented this service in my presence. I reviewed and verified all information documented by the medical student and made modifications to such information, when appropriate. I personally performed the physical exam and medical decision making. Dominique Casas, Jul 17, 2021,05:13 LORIE THAPA MED STUDENT Jul 16, 2021 13:08 DOMINIQUE CASAS DO Jul 17, 2021 05:13
[2021-07-16 14:21] VITALS: BP 132/79
[2021-07-16] MEDS ORDERED: HEParin 1000 UNIT/ML (10ML VIAL) FOR BOLUS IV SCH (15:30)
[2021-07-16 15:55] LABS: BASOPHILS # (AUTO) 0.1 10^3/uL (0.0-0.1); BASOPHILS % (AUTO) 1 % (0-10); EOSINOPHILS % (AUTO) 0 % (0-10); HEMATOCRIT 31 % (35-52); LYMPHOCYTES # (AUTO) 0.5 10^3/uL (1.0-4.0); LYMPHOCYTES % (AUTO) 3 % (12-44); MEAN CORPUSCULAR HEMOGLOBIN 29 pg (25-34); MEAN CORPUSCULAR HGB CONC 33 g/dL (32-36); MEAN CORPUSCULAR VOLUME 89 fL (80-99); MEAN PLATELET VOLUME 11.8 fL (9.0-12.2); MONOCYTES # (AUTO) 0.5 10^3/uL (0.0-1.0); MONOCYTES % (AUTO) 3 % (0-12); NEUTROPHILS # (AUTO) 14.2 10^3/uL (1.8-7.8); NEUTROPHILS % (AUTO) 87 % (42-75); PLATELET COUNT 122 10^3/uL (130-400); WHITE BLOOD COUNT 16.3 10^3/uL (4.3-11.0)
[2021-07-16] MEDS: HEParin DRIP 25000 UNIT/500ML 500 ML IV SCH (15:57)
[2021-07-16 16:02] LABS: INR 1.2 (0.8-1.4); PROTHROMBIN TIME PATIENT 16.1 SEC (12.2-14.7)
--- NOTE | 2021-07-16 17:40 | CONSULTATION REPORT ---
DATE OF SERVICE: 07/16/2021 ATTENDING PRIMARY CARE PHYSICIAN: [facility]. ADMITTING PHYSICIAN: Dr. Arrington. HISTORY OF PRESENT ILLNESS: The patient is a 40-year-old female who was brought to the Emergency Department with altered mental status as well as nausea and vomiting. She has a long-standing history of methamphetamine abuse. Upon presentation, she had reported some left upper abdominal quadrant pain as well as finger pain. She was also having difficulty with mentation as well as breathing difficulty. She was also found to be tachycardic and eventually intubated. A CT scan was performed, which did show inflammation around the iliac vein as well as small infarcts throughout the lung consistent with septic emboli. Upon examination of the patient, the patient does have a patchy ischemia, bilateral feet and hands consistent with septic emboli and possible present myocarditis or pending myocarditis. At this time, she is stable and we will recommend anticoagulation with heparin drip; however, she would likely need to be transferred for further workup as well as specialists including infectious disease as well as possible cardiovascular surgery. PAST MEDICAL HISTORY: Polysubstance abuse including methamphetamine and marijuana. Renal failure, heart failure. PAST SURGICAL HISTORY: Laparoscopic cholecystectomy. ALLERGIES: No known drug allergies. MEDICATIONS: Valacyclovir 500 mg t.i.d. SOCIAL HISTORY: Positive for polysubstance abuse including amphetamine, methamphetamine, marijuana, positive for cigarette smoking. FAMILY HISTORY: Noncontributory. VITAL SIGNS: Temperature 38.1, pulse 111, blood pressure 91/55, respirations 31, pulse ox 95% on 30% FiO2 mechanical ventilator. REVIEW OF SYSTEMS: Well-nourished female, currently on the ventilator and sedated. She has got bilateral small vessel ischemic changes over both hands and feet consistent with septic emboli coming from the arterial system, likely consistent with myocarditis or pending myocarditis. A CT scan did show inflammation around the right iliac vein as well as multiple septic emboli of the lungs consistent with the septic source. She is currently on the vent and sedated. PHYSICAL EXAMINATION: CHEST: Scattered rales and rhonchi bilaterally. HEART: Regular, no murmurs. EXTREMITIES: Small patchy ischemic changes throughout both hands and feet consistent with septic emboli. HEENT: No scleral icterus. NECK: No cervical lymphadenopathy. ABDOMEN: Soft, nontender, nondistended. SKIN: Cool with pallor. LABORATORY DATA: WBC 8.6, hemoglobin 11.3, hematocrit 34, platelets 162, BUN 31, creatinine 1.02. UA positive for nitrite, bacteria with a drug screen positive for amphetamine and methamphetamine. ASSESSMENT AND PLAN: A 40-year-old female with septic emboli to the lungs as well as peripheral arterially with trash foot and hands, likely consistent with myocarditis. She is currently on IV antibiotics; however, for now, we will start a heparin drip without bolus. We will also proceed with PUD prophylaxis with her current regimen of PPI, acid vapor coater as well as H2 antagonist. We will also likely need to transfer to a tertiary center with infectious disease specialist as well as cardiovascular surgery. Job ID: [id number] DocumentID: [id number] Dictated Date: 07/16/2021 15:46:12 Business Project Manager Date: 07/16/2021 17:40:00 Dictated By: MELINDA ARAGON MD
[2021-07-16 18:29] VITALS: BP 135/77
[2021-07-16] MEDS: fentaNYL DRIP PRE-MIX 250 ML IV SCH (18:35)
[2021-07-16 22:06] VITALS: BP 124/68
[2021-07-16] MEDS: HEParin 1000 UNIT/ML (10ML VIAL) FOR BOLUS IV SCH (23:46)
[2021-07-17 02:16] VITALS: BP 105/56
[2021-07-17] MEDS: RT-ALBUTEROL SULF 2.5 MG/3 ML PRE-MIX VIAL INH SCH ×6 (02:16→22:12)
[2021-07-17] MEDS: PROPOFOL DRIP (ICU) 100 ML IV SCH ×3 (02:25→23:30)
[2021-07-17] MEDS: NOREPINEPHRINE 8 MG/250 ML 250 ML IV SCH ×3 (02:51→22:59)
[2021-07-17] MEDS: NS IV 1000 ML 1,000 ML IV SCH ×7 (03:57→23:48)
[2021-07-17] MEDS ORDERED: TROUGH ORDER-PHARMACY XX ONE (05:00)
[2021-07-17 05:38] LABS: BASOPHILS % (AUTO) 0 % (0-10); EOSINOPHILS % (AUTO) 0 % (0-10); HEMOGLOBIN 8.7 g/dL (11.5-16.0); LYMPHOCYTES % (AUTO) 4 % (12-44)
[2021-07-17 05:39] LABS: ABG BASE EXCESS -9.9 MMOL/L (-2.5-2.5); ABG OXYGEN SATURATION 91 % (94-100); ABG PCO2 36 MMHG (35-45); ABG PO2 68 MMHG (79-93); ABG TCO2 16.9 MMOL/L (21.0-31.0)
[2021-07-17 05:40] LABS: HEMATOCRIT 27 % (35-52); LYMPHOCYTES # (AUTO) 0.7 10^3/uL (1.0-4.0); MEAN CORPUSCULAR HEMOGLOBIN 30 pg (25-34); MEAN CORPUSCULAR HGB CONC 33 g/dL (32-36); MEAN CORPUSCULAR VOLUME 91 fL (80-99); MEAN PLATELET VOLUME 12.2 fL (9.0-12.2); MONOCYTES # (AUTO) 0.3 10^3/uL (0.0-1.0); MONOCYTES % (AUTO) 2 % (0-12); NEUTROPHILS % (AUTO) 89 % (42-75); PLATELET COUNT 95 10^3/uL (130-400); WHITE BLOOD COUNT 20.2 10^3/uL (4.3-11.0)
[2021-07-17 05:43] LABS: ALLENS TEST YES-POS; INSPIRED O2 30%; PATIENT TEMP 37.1; VENTILATOR YES
[2021-07-17 05:44] LABS: ABG PH 7.26 (7.37-7.43)
--- NOTE | 2021-07-17 05:53 | Diagnostic Imaging Report ---
INDICATION: Intubated, ICU care management. COMPARISON: 07/16/2021 TECHNIQUE: Single radiograph of the chest dated 07/17/2021 FINDINGS: Endotracheal tube, enteric catheter, and left IJ central venous catheter appear stable. The cardiac silhouette is stable. Pulmonary vasculature is predominantly obscured. Extensive patchy bilateral pulmonary opacities are again identified, right greater than left. These have worsened since the prior examination. No large-volume pleural effusion. No pneumothorax. No acute osseous abnormality. IMPRESSION: Significantly worsening extensive right greater than left pulmonary opacities. Unchanged lines and tubes. Dictated by: Dictated on workstation # [id number]
[2021-07-17 05:54] LABS: ALBUMIN 1.9 GM/DL (3.2-4.5)
[2021-07-17 05:55] LABS: POTASSIUM 4.3 MMOL/L (3.6-5.0)
[2021-07-17 05:56] LABS: CALCIUM 6.3 MG/DL (8.5-10.1)
[2021-07-17 05:57] LABS: TOTAL PROTEIN 4.6 GM/DL (6.4-8.2)
[2021-07-17 05:59] LABS: BILIRUBIN,TOTAL 0.9 MG/DL (0.1-1.0)
[2021-07-17 06:00] LABS: PHOSPHORUS 3.6 MG/DL (2.3-4.7)
[2021-07-17 06:01] LABS: CREATININE SERUM 0.73 MG/DL (0.60-1.30)
[2021-07-17 06:10] LABS: VANCOMYCIN,TROUGH 10.1 UG/ML (10.0-20.0)
[2021-07-17] MEDS: POTASSIUM CL 10MEQ/50ML IVPB 50 ML IV SCH (06:13)
[2021-07-17] MEDS: MAGNESIUM 1 GM/100 ML IVPB 100 ML IV SCH (06:13)
[2021-07-17] MEDS: KCL 20 MEQ TAB (K-DUR) PO SCH (06:13)
[2021-07-17] MEDS: HEParin 1000 UNIT/ML (10ML VIAL) FOR BOLUS IV SCH ×3 (06:18→23:13)
[2021-07-17] MEDS: VANCOMYCIN 1 GM/NS 250 ML IVPB IV SCH ×2 (06:18)
[2021-07-17 06:36] VITALS: BP 106/60
--- NOTE | 2021-07-17 06:51 | Occ Therapy Progress Note ---
Therapy Progress Note Pt currently intubated. OT to monitor pt's status and will initiate treatment when pt is medically stable and able to actively participate in skilled therapy. ERWIN NAGY Jul 17, 2021 06:51
[2021-07-17] MEDS ORDERED: VANCOMYCIN 1 GM/NS 250 ML IVPB IV NR ×2 (07:30)
--- NOTE | 2021-07-17 07:32 | Physical Therapy Progress Note ---
Therapy Progress Note Patient currently sedated and intubated. PT will continue to follow patient status and initiate treatment when patient is medically stable and able to actively participate with skilled therapy. NILSA BROWN PT Jul 17, 2021 07:32
[2021-07-17] MEDS: PIPERACILLIN/TAZOBACTAM (BULK) 4.5 GM in NS (IVPB) 100 ML IV SCH ×3 (08:06→23:13)
[2021-07-17] MEDS: PANTOPRAZOLE 40 MG (PROTONIX) VIAL IV SCH ×3 (08:09→20:03)
[2021-07-17] MEDS ORDERED: SODIUM BICARB 8.4% 50 MEQ/50 ML (ABBOTT) SYR IV NR (10:15)
--- NOTE | 2021-07-17 10:19 | Tele-ICU Progress Note ---
Subjective Date Seen by a Provider: Jul 17, 2021 Time Seen by a Provider: 10:19 Subjective/Events-last exam This patient today remained intubated and on mechanical ventilation sedated. She is not much responsive at this time. Her blood pressure is slightly on the low side requiring low-dose Levophed. Her repeat blood cultures have been ordered and an echocardiogram done awaiting for the results. Apparently the staff at [facility] tried to transfer her to your tertiary care center and tried to several facilities including in [facility] care [facility] but nobody has a beds available to transfer at this time. Her platelets are trending down. She has been started on IV heparin but will keep an eye on the platelet count and will get a HIT test done. Case reviewed with the medical student as well as the ICU nurse. Video visit made. Surgical consultation appreciated. Review of Systems ROS PER ATTENDING PHYSICIAN Sepsis Event Evaluation Height, Weight, BMI Height: 5'8.00" Weight: 167lbs. 0.0oz. 75.235730ub; 32.65 BMI Method:Estimated Focused Exam Lactate Level 07/16/21 14:00: Lactic Acid Level 3.67*H 07/16/21 16:22: Lactic Acid Level 3.48*H 07/17/21 05:30: Lactic Acid Level 2.88*H Exam Exam Patient acknowledged, consented, and participated in this virtual visit which was conducted using real time audio/video Vital Signs Date Time Temp Pulse Resp B/P (MAP) Pulse Ox O2 Delivery O2 Flow Rate FiO2 07/17/21 09:30 96 27 106/63 98 Mechanical Ventilator 30.00 07/17/21 09:15 96 25 108/59 95 Mechanical Ventilator 30.00 07/17/21 09:00 110/53 07/17/21 08:45 51 116/57 93 Mechanical Ventilator 30.00 07/17/21 08:30 97 24 112/58 98 Mechanical Ventilator 30.00 07/17/21 08:15 98 25 112/63 96 Mechanical Ventilator 30.00 07/17/21 08:00 98 25 103/63 98 Mechanical Ventilator 30.00 07/17/21 08:00 37.8 07/17/21 08:00 37.0 07/17/21 07:45 98 24 109/60 98 Mechanical Ventilator 30.00 07/17/21 07:30 98 24 103/57 07/17/21 07:15 98 25 106/64 Mechanical Ventilator 07/17/21 07:00 98 24 106/58 97 Mechanical Ventilator 30.00 07/17/21 07:00 97 07/17/21 06:36 96 23 98 30 07/17/21 06:30 107/55 07/17/21 06:15 100 26 112/60 97 07/17/21 06:12 30 07/17/21 06:00 101 25 112/60 97 Mechanical Ventilator 30.00 07/17/21 05:45 101 25 109/60 97 07/17/21 05:30 100 23 108/63 97 07/17/21 05:16 37.1 07/17/21 05:15 101 25 107/59 93 07/17/21 05:00 101 25 107/59 93 Mechanical Ventilator 30.00 07/17/21 04:45 100 26 91/51 94 07/17/21 04:30 74/39 07/17/21 04:15 103 26 111/57 94 07/17/21 04:00 103 26 111/57 94 Mechanical Ventilator 30.00 07/17/21 04:00 94 Mechanical Ventilator 30 07/17/21 03:57 37.4 07/17/21 03:45 113/63 07/17/21 03:30 104 26 113/62 95 07/17/21 03:15 104 26 115/60 94 07/17/21 03:00 104 27 115/60 95 Mechanical Ventilator 30.00 07/17/21 02:56 30 07/17/21 02:45 105 26 102/59 94 07/17/21 02:30 105 26 105/59 94 07/17/21 02:16 103 27 95 30 07/17/21 02:15 103 51 105/56 94 07/17/21 02:00 103 29 105/56 95 Mechanical Ventilator 30.00 07/17/21 01:45 103 55 115/59 95 07/17/21 01:30 108/63 07/17/21 01:15 105 29 107/61 81 07/17/21 01:00 105 07/17/21 01:00 105 28 107/61 90 Mechanical Ventilator 30.00 07/17/21 00:45 104 27 104/57 94 07/17/21 00:30 105 30 102/62 96 07/17/21 00:15 105 28 104/55 97 07/17/21 00:00 105 30 104/55 98 Mechanical Ventilator 30.00 07/17/21 00:00 96 Mechanical Ventilator 30 07/16/21 23:51 37.4 07/16/21 23:45 105 29 125/69 97 07/16/21 23:30 104 32 124/65 97 07/16/21 23:15 105 29 123/72 98 07/16/21 23:00 105 30 123/72 99 Mechanical Ventilator 30.00 07/16/21 22:45 106 29 118/69 98 07/16/21 22:30 117/70 07/16/21 22:15 107 28 115/71 98 07/16/21 22:06 107 29 95 30 07/16/21 22:00 107 30 115/71 99 Mechanical Ventilator 30.00 07/16/21 21:45 107 29 123/80 99 07/16/21 21:30 106 25 123/72 98 07/16/21 21:15 107 18 123/77 99 07/16/21 21:00 107 32 123/77 99 Mechanical Ventilator 30.00 07/16/21 20:45 108 35 116/81 98 07/16/21 20:45 108 116/70 07/16/21 20:30 109 33 116/70 98 07/16/21 20:15 108 36 101/70 96 07/16/21 20:00 108 34 101/70 93 Mechanical Ventilator 30.00 07/16/21 20:00 96 Mechanical Ventilator 30 07/16/21 19:54 107 60 134/80 94 07/16/21 19:45 104 31 94/56 97 07/16/21 19:42 36.8 07/16/21 19:30 109 31 133/76 88 07/16/21 19:15 108 32 135/73 92 07/16/21 19:00 109 07/16/21 19:00 109 32 135/73 90 Mechanical Ventilator 30.00 07/16/21 18:29 105 30 95 30 07/16/21 18:00 107 31 135/77 95 Mechanical Ventilator 30.00 07/16/21 17:00 108 30 130/89 94 Mechanical Ventilator 30.00 07/16/21 16:44 98 Mechanical Ventilator 30 07/16/21 16:00 111 30 123/80 93 Mechanical Ventilator 30.00 07/16/21 16:00 37.5 07/16/21 15:55 128/77 07/16/21 15:00 111 31 128/77 94 Mechanical Ventilator 30.00 07/16/21 14:21 111 31 95 30 07/16/21 14:00 112 30 130/82 95 Mechanical Ventilator 30.00 07/16/21 13:00 115 07/16/21 13:00 115 33 92 Mechanical Ventilator 30.00 07/16/21 12:50 38.1 07/16/21 12:11 39.3 07/16/21 12:09 39.6 07/16/21 12:05 97 Mechanical Ventilator 30 07/16/21 12:00 110 30 117/72 96 Mechanical Ventilator 30.00 07/16/21 11:57 37.7 07/16/21 11:00 110 32 91/55 94 Mechanical Ventilator 30.00 07/16/21 10:24 109 28 94 30 I & O 07/17/21 07:00 Intake Total 6100 ml Output Total 2500 ml Balance 3600 ml Height & Weight Height: 5'8.00" Weight: 167lbs. 0.0oz. 75.826197zh; 32.65 BMI Method:Estimated General Appearance: Other (Patient is lying supine in bed, intubated and sedated. Not responsive to stimuli. Multiple lines. No apprent distress) HEENT: PERRL/EOMI, Pharynx Normal, Other (Vomit noted on face) Neck: Non Tender, Supple Respiratory: No Accessory Muscle Use, No Respiratory Distress, Decreased Breath Sounds Cardiovascular: Regular Rate, Rhythm Capillary Refill: Less Than 3 Seconds Extremity: Normal Range of Motion, Non Tender, No Calf Tenderness Neurologic/Psychiatric: Alert, Disoriented (Place and time), Other (Anxious and repeating) Skin: Normal Color, Warm/Dry Other comments PE PER ATTENDING PHYSICIAN Results Lab Laboratory Tests 07/15/21 15:55 07/16/21 02:33 07/16/21 15:40 07/17/21 05:30 Meds REVIEWED. Radiology CXR REVIEWED. Assessment/Plan Assessment/Plan Assessment/Plan 1. Severe gram-positive septic shock 2. Hypoxic respiratory failure requiring mechanical ventilation and she is not ready for SBT today. 3. Multiple septic emboli with cavitations. 4. Multiple intramuscular abscesses in the abdomen. 5. History of methamphetamine abuse. 6. Rule out any endocarditis acute. 7. Metabolic encephalopathy. Recommendations 1. Continue mechanical ventilatory support and adjust according to the blood gases 2. IV fluids with normal saline and boluses as needed 3. Repeat blood cultures 4. Continue IV Zosyn and vancomycin. 5. Surgical consult appreciated. 6. Check Echo results. 7. Ulcer prophylaxis and DVT prophylaxis. 8. Prognosis in this kind of situation is very poor and I expect high mortality. Consider transferring to a. tertiary care hospital where multiple specialist available. 9. Suggest cardiology consult. 10. will get CT head to r/o any abscess Critical Care: Ventilator Management Time spent with patient (mins): 35 CECILIA TUBBS MD Jul 17, 2021 10:19
[2021-07-17 10:26] VITALS: BP 114/60
[2021-07-17] MEDS: fentaNYL DRIP PRE-MIX 250 ML IV SCH (10:58)
--- NOTE | 2021-07-17 11:00 | Pulmonary Progress Note ---
VÍCTOR DAO 07/17/21 1100: Subjective Subjective/Events-last exam The patient continues to be intubated and sedated. Her lactic acid is still elevated and she is currently on levophed. Attempts are being made to transfer the patient to a tertiary care facility. Exam Exam Patient acknowledged, consented, and participated in this virtual visit which was conducted using real time audio/video Vital Signs Date Time Temp Pulse Resp B/P (MAP) Pulse Ox O2 Delivery O2 Flow Rate FiO2 07/17/21 10:26 96 24 100 30 07/17/21 09:30 96 27 106/63 98 Mechanical Ventilator 30.00 07/17/21 09:15 96 25 108/59 95 Mechanical Ventilator 30.00 07/17/21 09:00 110/53 07/17/21 08:45 51 116/57 93 Mechanical Ventilator 30.00 07/17/21 08:30 97 24 112/58 98 Mechanical Ventilator 30.00 07/17/21 08:15 98 25 112/63 96 Mechanical Ventilator 30.00 07/17/21 08:00 98 25 103/63 98 Mechanical Ventilator 30.00 07/17/21 08:00 37.8 07/17/21 08:00 37.0 07/17/21 07:45 98 24 109/60 98 Mechanical Ventilator 30.00 07/17/21 07:30 98 24 103/57 07/17/21 07:15 98 25 106/64 Mechanical Ventilator 07/17/21 07:00 98 24 106/58 97 Mechanical Ventilator 30.00 07/17/21 07:00 97 07/17/21 06:36 96 23 98 30 07/17/21 06:30 107/55 07/17/21 06:15 100 26 112/60 97 07/17/21 06:12 30 07/17/21 06:00 101 25 112/60 97 Mechanical Ventilator 30.00 07/17/21 05:45 101 25 109/60 97 07/17/21 05:30 100 23 108/63 97 07/17/21 05:16 37.1 07/17/21 05:15 101 25 107/59 93 07/17/21 05:00 101 25 107/59 93 Mechanical Ventilator 30.00 07/17/21 04:45 100 26 91/51 94 07/17/21 04:30 74/39 07/17/21 04:15 103 26 111/57 94 07/17/21 04:00 103 26 111/57 94 Mechanical Ventilator 30.00 07/17/21 04:00 94 Mechanical Ventilator 30 07/17/21 03:57 37.4 07/17/21 03:45 113/63 07/17/21 03:30 104 26 113/62 95 07/17/21 03:15 104 26 115/60 94 07/17/21 03:00 104 27 115/60 95 Mechanical Ventilator 30.00 07/17/21 02:56 30 07/17/21 02:45 105 26 102/59 94 07/17/21 02:30 105 26 105/59 94 07/17/21 02:16 103 27 95 30 07/17/21 02:15 103 51 105/56 94 07/17/21 02:00 103 29 105/56 95 Mechanical Ventilator 30.00 07/17/21 01:45 103 55 115/59 95 07/17/21 01:30 108/63 07/17/21 01:15 105 29 107/61 81 07/17/21 01:00 105 07/17/21 01:00 105 28 107/61 90 Mechanical Ventilator 30.00 07/17/21 00:45 104 27 104/57 94 07/17/21 00:30 105 30 102/62 96 07/17/21 00:15 105 28 104/55 97 07/17/21 00:00 105 30 104/55 98 Mechanical Ventilator 30.00 07/17/21 00:00 96 Mechanical Ventilator 30 07/16/21 23:51 37.4 07/16/21 23:45 105 29 125/69 97 07/16/21 23:30 104 32 124/65 97 07/16/21 23:15 105 29 123/72 98 07/16/21 23:00 105 30 123/72 99 Mechanical Ventilator 30.00 07/16/21 22:45 106 29 118/69 98 07/16/21 22:30 117/70 07/16/21 22:15 107 28 115/71 98 07/16/21 22:06 107 29 95 30 07/16/21 22:00 107 30 115/71 99 Mechanical Ventilator 30.00 07/16/21 21:45 107 29 123/80 99 07/16/21 21:30 106 25 123/72 98 07/16/21 21:15 107 18 123/77 99 07/16/21 21:00 107 32 123/77 99 Mechanical Ventilator 30.00 07/16/21 20:45 108 35 116/81 98 07/16/21 20:45 108 116/70 07/16/21 20:30 109 33 116/70 98 07/16/21 20:15 108 36 101/70 96 07/16/21 20:00 108 34 101/70 93 Mechanical Ventilator 30.00 07/16/21 20:00 96 Mechanical Ventilator 30 07/16/21 19:54 107 60 134/80 94 07/16/21 19:45 104 31 94/56 97 07/16/21 19:42 36.8 07/16/21 19:30 109 31 133/76 88 07/16/21 19:15 108 32 135/73 92 07/16/21 19:00 109 07/16/21 19:00 109 32 135/73 90 Mechanical Ventilator 30.00 07/16/21 18:29 105 30 95 30 07/16/21 18:00 107 31 135/77 95 Mechanical Ventilator 30.00 07/16/21 17:00 108 30 130/89 94 Mechanical Ventilator 30.00 07/16/21 16:44 98 Mechanical Ventilator 30 07/16/21 16:00 111 30 123/80 93 Mechanical Ventilator 30.00 07/16/21 16:00 37.5 07/16/21 15:55 128/77 07/16/21 15:00 111 31 128/77 94 Mechanical Ventilator 30.00 07/16/21 14:21 111 31 95 30 07/16/21 14:00 112 30 130/82 95 Mechanical Ventilator 30.00 07/16/21 13:00 115 07/16/21 13:00 115 33 92 Mechanical Ventilator 30.00 07/16/21 12:50 38.1 07/16/21 12:11 39.3 07/16/21 12:09 39.6 07/16/21 12:05 97 Mechanical Ventilator 30 07/16/21 12:00 110 30 117/72 96 Mechanical Ventilator 30.00 07/16/21 11:57 37.7 07/16/21 11:00 110 32 91/55 94 Mechanical Ventilator 30.00 I & O 07/17/21 07:00 Intake Total 6100 ml Output Total 2500 ml Balance 3600 ml Height & Weight Height: 5'8.00" Weight: 167lbs. 0.0oz. 75.863514vy; 32.65 BMI Method:Estimated General Appearance: Other (Patient is lying supine in bed, intubated and sedated. Not responsive to stimuli. Multiple lines. No apprent distress) HEENT: PERRL/EOMI, Pharynx Normal Neck: Non Tender, Supple Respiratory: No Accessory Muscle Use, No Respiratory Distress, Decreased Breath Sounds Cardiovascular: Regular Rate, Rhythm Capillary Refill: Less Than 3 Seconds Extremity: Normal Range of Motion, Non Tender, No Calf Tenderness Neurologic/Psychiatric: Other (Sedated) Skin: Normal Color, Warm/Dry Results Lab Laboratory Tests 07/15/21 15:55 07/16/21 02:33 07/16/21 15:40 07/17/21 05:30 Assessment/Plan Assessment/Plan * Severe gram-positive septic shock * Multiple septic emboli * Multiple intramuscular abscesses in belly and psoas * History of meth abuse Plan: * Continue mechanical ventilation with adjustments depending on blood gases * IV fluid PRN * Continue IV vanc and zosyn * Surgical and cardiology consultation for endocarditis rule out * Ulcer and DVT prophylaxis * Transfer to tertiary care hospital being attempted Critical Care: Ventilator Management CECILIA TUBBS MD 07/17/21 1310: Subjective Date Seen by a Provider: Jul 17, 2021 Time Seen by a Provider: 12:00 Review of Systems General: Other (intubated and sedated) Pulmonary: Other (on vent) Supervisory-Addendum Brief Verification & Attestation Participated in pt care: history, physical Personally performed: history, MDM, supervision of care Care discussed with: Medical Student Procedures: n/a Results interpretation: Verified all documentation A medical student performed and documented this service in my presence. I reviewed and verified all information documented by the medical student and made modifications to such information, when appropriate. I have made a video visit and discussed with rn and the medical student. VÍCTOR DAO Jul 17, 2021 11:00 CECILIA TUBBS MD Jul 17, 2021 13:10
[2021-07-17] MEDS ORDERED: NS 100 ML (IVPB) BAG IV ONE (11:30)
[2021-07-17] MEDS ORDERED: IOHEXOL 350 MG/ML 100 ML (OMNIPAQUE 350) VIAL IV ONE (11:30)
[2021-07-17] MEDS ORDERED: HOLD METFORMIN - RECEIVED CONTRAST 20 ML VIAL IV SCH (11:30)
--- NOTE | 2021-07-17 12:15 | Diagnostic Imaging Report ---
PROCEDURE: CT head with and without contrast. TECHNIQUE: Multiple contiguous axial images were obtained through the brain before and after the administration of intravenous contrast. Auto Exposure Controls were utilized during the CT exam to meet ALARA standards for radiation dose reduction. INDICATION: Unresponsive. Drug overdose. Intubated. COMPARISON: 12/01/2020. FINDINGS: No large acute territorial ischemia, mass, or hemorrhage. No abnormal enhancement is seen. No midline shift or mass effect. The ventricles, cortical sulci, and basilar cisterns are patent and unremarkable. The calvarium is intact. Retained secretions are seen in the right maxillary sinus. The mastoid air cells are clear. Endotracheal tube is noted. IMPRESSION: 1. No large acute territorial ischemia, mass, or hemorrhage. No abnormal enhancement. Dictated by: Dictated on workstation # [id number]
--- NOTE | 2021-07-17 12:22 | Progress Note ---
Subjective Date Seen by a Provider: Jul 17, 2021 Time Seen by a Provider: 10:00 Subjective/Events-last exam on vent/sedated. extremities edematous but much better perfused. Focused Exam Lactate Level 07/16/21 14:00: Lactic Acid Level 3.67*H 07/16/21 16:22: Lactic Acid Level 3.48*H 07/17/21 05:30: Lactic Acid Level 2.88*H Objective Exam Vital Signs Date Time Temp Pulse Resp B/P (MAP) Pulse Ox O2 Delivery O2 Flow Rate FiO2 07/17/21 12:12 101 125/62 07/17/21 11:00 96 23 109/58 100 Mechanical Ventilator 30.00 07/17/21 10:45 96 24 111/59 99 Mechanical Ventilator 30.00 07/17/21 10:30 96 24 114/58 99 Mechanical Ventilator 07/17/21 10:26 96 24 100 30 07/17/21 10:15 95 27 114/60 100 Mechanical Ventilator 30.00 07/17/21 10:00 96 24 111/66 100 Mechanical Ventilator 30.00 07/17/21 09:45 96 26 111/63 100 Mechanical Ventilator 30.00 07/17/21 09:30 96 27 106/63 98 Mechanical Ventilator 30.00 07/17/21 09:30 96 27 106/63 98 07/17/21 09:15 96 25 108/59 95 Mechanical Ventilator 30.00 07/17/21 09:15 96 25 108/59 95 07/17/21 09:00 110/53 07/17/21 09:00 110/53 07/17/21 08:45 51 116/57 93 Mechanical Ventilator 30.00 07/17/21 08:30 97 24 112/58 98 Mechanical Ventilator 30.00 07/17/21 08:15 98 25 112/63 96 Mechanical Ventilator 30.00 07/17/21 08:00 98 25 103/63 98 Mechanical Ventilator 30.00 07/17/21 08:00 37.8 07/17/21 08:00 37.0 07/17/21 07:45 98 24 109/60 98 Mechanical Ventilator 30.00 07/17/21 07:30 98 24 103/57 07/17/21 07:15 98 25 106/64 Mechanical Ventilator 07/17/21 07:00 98 24 106/58 97 Mechanical Ventilator 30.00 07/17/21 07:00 97 07/17/21 06:36 96 23 98 30 07/17/21 06:30 107/55 07/17/21 06:15 100 26 112/60 97 07/17/21 06:12 30 07/17/21 06:00 101 25 112/60 97 Mechanical Ventilator 30.00 07/17/21 05:45 101 25 109/60 97 07/17/21 05:30 100 23 108/63 97 07/17/21 05:16 37.1 07/17/21 05:15 101 25 107/59 93 07/17/21 05:00 101 25 107/59 93 Mechanical Ventilator 30.00 07/17/21 04:45 100 26 91/51 94 07/17/21 04:30 74/39 07/17/21 04:15 103 26 111/57 94 07/17/21 04:00 103 26 111/57 94 Mechanical Ventilator 30.00 07/17/21 04:00 94 Mechanical Ventilator 30 07/17/21 03:57 37.4 07/17/21 03:45 113/63 07/17/21 03:30 104 26 113/62 95 07/17/21 03:15 104 26 115/60 94 07/17/21 03:00 104 27 115/60 95 Mechanical Ventilator 30.00 07/17/21 02:56 30 07/17/21 02:45 105 26 102/59 94 07/17/21 02:30 105 26 105/59 94 07/17/21 02:16 103 27 95 30 07/17/21 02:15 103 51 105/56 94 07/17/21 02:00 103 29 105/56 95 Mechanical Ventilator 30.00 07/17/21 01:45 103 55 115/59 95 07/17/21 01:30 108/63 07/17/21 01:15 105 29 107/61 81 07/17/21 01:00 105 07/17/21 01:00 105 28 107/61 90 Mechanical Ventilator 30.00 07/17/21 00:45 104 27 104/57 94 07/17/21 00:30 105 30 102/62 96 07/17/21 00:15 105 28 104/55 97 07/17/21 00:00 105 30 104/55 98 Mechanical Ventilator 30.00 07/17/21 00:00 96 Mechanical Ventilator 30 07/16/21 23:51 37.4 07/16/21 23:45 105 29 125/69 97 07/16/21 23:30 104 32 124/65 97 07/16/21 23:15 105 29 123/72 98 07/16/21 23:00 105 30 123/72 99 Mechanical Ventilator 30.00 07/16/21 22:45 106 29 118/69 98 07/16/21 22:30 117/70 07/16/21 22:15 107 28 115/71 98 07/16/21 22:06 107 29 95 30 07/16/21 22:00 107 30 115/71 99 Mechanical Ventilator 30.00 07/16/21 21:45 107 29 123/80 99 07/16/21 21:30 106 25 123/72 98 07/16/21 21:15 107 18 123/77 99 07/16/21 21:00 107 32 123/77 99 Mechanical Ventilator 30.00 07/16/21 20:45 108 35 116/81 98 07/16/21 20:45 108 116/70 07/16/21 20:30 109 33 116/70 98 07/16/21 20:15 108 36 101/70 96 07/16/21 20:00 108 34 101/70 93 Mechanical Ventilator 30.00 07/16/21 20:00 96 Mechanical Ventilator 30 07/16/21 19:54 107 60 134/80 94 07/16/21 19:45 104 31 94/56 97 07/16/21 19:42 36.8 07/16/21 19:30 109 31 133/76 88 07/16/21 19:15 108 32 135/73 92 07/16/21 19:00 109 07/16/21 19:00 109 32 135/73 90 Mechanical Ventilator 30.00 07/16/21 18:29 105 30 95 30 07/16/21 18:00 107 31 135/77 95 Mechanical Ventilator 30.00 07/16/21 17:00 108 30 130/89 94 Mechanical Ventilator 30.00 07/16/21 16:44 98 Mechanical Ventilator 30 07/16/21 16:00 111 30 123/80 93 Mechanical Ventilator 30.00 07/16/21 16:00 37.5 07/16/21 15:55 128/77 07/16/21 15:00 111 31 128/77 94 Mechanical Ventilator 30.00 07/16/21 14:21 111 31 95 30 07/16/21 14:00 112 30 130/82 95 Mechanical Ventilator 30.00 07/16/21 13:00 115 07/16/21 13:00 115 33 92 Mechanical Ventilator 30.00 07/16/21 12:50 38.1 I & O 07/17/21 07:00 Intake Total 6100 ml Output Total 2500 ml Balance 3600 ml Capillary Refill : Less Than 3 Seconds General Appearance: No Apparent Distress HEENT: PERRL/EOMI Neck: Full Range of Motion Respiratory: Chest Non Tender, Decreased Breath Sounds Cardiovascular: Regular Rate, Rhythm Gastrointestinal: normal bowel sounds, non tender, soft Extremity: Normal Capillary Refill Neurologic/Psychiatric: Alert, Oriented x3 Skin: Normal Color Lymphatic: No Adenopathy Results Lab Laboratory Tests 07/16/21 14:00: Lactic Acid Level 3.67*H 07/16/21 15:40: White Blood Count 16.3H, Red Blood Count 3.41L, Hemoglobin 10.0L, Hematocrit 31L , Mean Corpuscular Volume 89, Mean Corpuscular Hemoglobin 29, Mean Corpuscular Hemoglobin Concent 33, Red Cell Distribution Width 14.6H, Platelet Count 122L, Mean Platelet Volume 11.8, Immature Granulocyte % (Auto) 6, Neutrophils (%) (Auto) 87H, Lymphocytes (%) (Auto) 3L, Monocytes (%) (Auto) 3, Eosinophils (%) (Auto) 0, Basophils (%) (Auto) 1, Neutrophils # (Auto) 14.2H, Lymphocytes # (Auto) 0.5L, Monocytes # (Auto) 0.5, Eosinophils # (Auto) 0.0, Basophils # (Auto) 0.1, Immature Granulocyte # (Auto) 0.9H, Percent Immature Platelet Fraction 8.7H, Prothrombin Time 16.1H, INR Comment 1.2, Activated Partial Thromboplast Time 33 07/16/21 16:22: Lactic Acid Level 3.48*H 07/16/21 22:10: Activated Partial Thromboplast Time 43H 07/17/21 05:30: White Blood Count 20.2H, Red Blood Count 2.93L, Hemoglobin 8.7L, Hematocrit 27L, Mean Corpuscular Volume 91, Mean Corpuscular Hemoglobin 30, Mean Corpuscular Hemoglobin Concent 33, Red Cell Distribution Width 15.1H, Platelet Count 95L, Mean Platelet Volume 12.2, Immature Granulocyte % (Auto) 6, Neutrophils (%) (Auto) 89H, Lymphocytes (%) (Auto) 4L, Monocytes (%) (Auto) 2, Eosinophils (%) (Auto) 0, Basophils (%) (Auto) 0, Neutrophils # (Auto) 18.0H, Lymphocytes # (Auto) 0.7L, Monocytes # (Auto) 0.3, Eosinophils # (Auto) 0.0, Basophils # (Auto) 0.0, Immature Granulocyte # (Auto) 1.1H, Percent Immature Platelet Fraction 7.7H, Activated Partial Thromboplast Time 51H, Blood Gas Puncture Site RIGHT RADIAL, Blood Gas Patient Temperature 37.1, Arterial Blood pH 7.26*L, Arterial Blood Partial Pressure CO2 36, Arterial Blood Partial Pressure O2 68L, Arterial Blood HCO3 16*L, Arterial Blood Total CO2 16.9L, Arterial Blood Oxygen Saturation 91L, Arterial Blood Base Excess -9.9L, Luis Test YES-POS, Blood Gas Ventilator Setting YES, Blood Gas Inspired Oxygen 30%, Sodium Level 136, Potassium Level 4.3, Chloride Level 111H, Carbon Dioxide Level 15L, Anion Gap 10, Blood Urea Nitrogen 21H, Creatinine 0.73, Estimat Glomerular Filtration Rate 89, BUN/Creatinine Ratio 29, Glucose Level 97, Lactic Acid Level 2.88*H, Calcium Level 6.3L, Corrected Calcium 8.0L, Phosphorus Level 3.6, Magnesium Level 3.0H, Total Bilirubin 0.9, Aspartate Amino Transf (AST/SGOT) 124H, Alanine Aminotransferase (ALT/SGPT) 49, Alkaline Phosphatase 79, Total Protein 4.6L, Albumin 1.9L, Vancomycin Level Trough 10.1 07/17/21 12:02: Glucometer 102 Microbiology 07/15/21 Gram Stain - Final, Resulted 07/15/21 Sputum Culture - Preliminary, Resulted Staphylococcus aureus 07/15/21 Blood Culture - Preliminary, Resulted Staphylococcus aureus 07/15/21 Urine Culture - Preliminary, Resulted Staphylococcus aureus Assessment/Plan Assessment/Plan Assess & Plan/Chief Complaint venous/arterial septic thrombosis. on heparin gtt. awaiting transfer to cardiovascular surg. MELINDA ARAGON MD Jul 17, 2021 12:22
--- NOTE | 2021-07-17 12:37 | Progress Note - Hospitalist ---
LORIE THAPA MED STUDENT 07/17/21 1237: Subjective HPI/CC On Admission Date Seen by Provider: Jul 17, 2021 Time Seen by Provider: 07:20 Chief complaint: Respiratory failure History present illness: This is a 40-year-old white female who presented with altered mental status and meth use was found to have 103 fever and a multitude of other issues which resulted in significant decompensation requiring intubatio n. Bilateral pneumonia will be treated with Zosyn and vancomycin. Subjective/Events-last exam Mrs. Ribeiro is laying in bed and intubated this morning. She looks about the same as she did yesterday. She does not respond to any verbal stimulation. She has been seen by surgery and EICU that both have reccomended she be moved to a tertiary facility. Multiple facilities were contacted and none have accepted the patient. She does have an echo scheduled. Still continuing on ABX and pressors. Mother is in the room at time of rounding and requests something be done so that she can take custody of her daughter and put into some sort of care. Mother was advised we are taking this one step at a time, she does not have any other questions and understands goals for her daughters therapy. Review of Systems Unable to obtain due to intubation Focused Exam Lactate Level 07/16/21 14:00: Lactic Acid Level 3.67*H 07/16/21 16:22: Lactic Acid Level 3.48*H 07/17/21 05:30: Lactic Acid Level 2.88*H Objective Exam Vital Signs Vital Signs Date Time Temp Pulse Resp B/P (MAP) Pulse Ox O2 Delivery O2 Flow Rate FiO2 07/17/21 12:12 101 125/62 07/17/21 12:00 37.4 07/17/21 11:00 23 100 Mechanical Ventilator 30.00 07/17/21 10:26 30 Capillary Refill : Less Than 3 Seconds General Appearance: Chronically ill, Thin, Other (Intubated and sedated, laying in bed, not respionsive to verbal stimulation) HEENT: Pharynx Normal, Moist Mucous Membranes Neck: Supple Respiratory: No Lungs Clear; No Respiratory Distress, Decreased Breath Sounds, Other (vent) Cardiovascular: Regular Rate, Rhythm, No Edema, No Murmur, Normal Peripheral Pulses Gastrointestinal: Normal Bowel Sounds, No Organomegaly, No Pulsatile Mass, Soft Rectal: Deferred Extremity: Normal Capillary Refill, Normal Inspection, No Pedal Edema Neurologic/Psychiatric: No Alert, No Oriented x3, No Normal Mood/Affect Skin: Normal Color, Warm/Dry Results/Procedures Lab Laboratory Tests 07/16/21 15:40 07/17/21 05:30 Patient resulted labs reviewed. Radiology NAME: YASMEEN RIBEIRO [facility] REC#: [id number] PT STATUS: ADM IN : 1980 PHYSICIAN: RENNY JEAN-BAPTISTE DO ADMIT DATE: 07/15/21/ICU Signed Date of Exam:07/17/21 CHEST 1 VIEW, AP/PA ONLY INDICATION: Intubated, ICU care management. COMPARISON: 07/16/2021 TECHNIQUE: Single radiograph of the chest dated 07/17/2021 FINDINGS: Endotracheal tube, enteric catheter, and left IJ central venous catheter appear stable. The cardiac silhouette is stable. Pulmonary vasculature is predominantly obscured. Extensive patchy bilateral pulmonary opacities are again identified, right greater than left. These have worsened since the prior examination. No large-volume pleural effusion. No pneumothorax. No acute osseous abnormality. IMPRESSION: Significantly worsening extensive right greater than left pulmonary opacities. Unchanged lines and tubes. Dictated by: Dictated on workstation # [id number] Dict: 07/17/21 0545 Trans: 07/17/21 08[facility] [id number] Interpreted by: RAFAT CHEEMA MD Electronically signed by: RAFAT CHEEMA MD 07/17/21 0843 NAME: YASMEEN RIBEIRO [facility] REC#: [id number] PT STATUS: ADM IN : 1980 PHYSICIAN: CECILIA TUBBS MD ADMIT DATE: 07/15/21/ICU Signed Date of Exam:07/17/21 CT HEAD W WO PROCEDURE: CT head with and without contrast. TECHNIQUE: Multiple contiguous axial images were obtained through the brain before and after the administration of intravenous contrast. Auto Exposure Controls were utilized during the CT exam to meet ALARA standards for radiation dose reduction. INDICATION: Unresponsive. Drug overdose. Intubated. COMPARISON: 12/01/2020. FINDINGS: No large acute territorial ischemia, mass, or hemorrhage. No abnormal enhancement is seen. No midline shift or mass effect. The ventricles, cortical sulci, and basilar cisterns are patent and unremarkable. The calvarium is intact. Retained secretions are seen in the right maxillary sinus. The mastoid air cells are clear. Endotracheal tube is noted. IMPRESSION: 1. No large acute territorial ischemia, mass, or hemorrhage. No abnormal enhancement. Dictated by: Dictated on workstation # [id number] Dict: 07/17/21 1205 Trans: 07/17/21 1228 [id number] Interpreted by: YUMIKO GREEN DO Electronically signed by: YUMIKO GREEN DO 07/17/21 1228 Assessment/Plan Assessment and Plan Assess & Plan/Chief Complaint Respiratory failure -Currently intubated, managed by RT -Pt Acidotic this morning, vent adjusted and will recheck tomorrow -Working on transferring patient to another facility Bilateral pneumonia -Continue zosyn and vanc -CXR today shows worsening opacites Hyponatremia -Continuing to improve, 136 this morning -Continue to monitor w/ labs Rhabdomyolysis -IV fluids Acidosis -Repeat ABG tomorrow -Pt a little worse today at 7.26 UTI -Continue ABX Sepsis -Source of infection likely embolus seen on CT -Continue ABX Critical Care: Critically Ill Patient Supervisory-Addendum Brief Verification & Attestation Participated in pt care: history, physical Personally performed: exam, history Care discussed with: Medical Student Procedures: n/a n/a SHERRILL CASAS DO 07/18/21 0701: Subjective Subjective/Events-last exam Pt stable on Heparin drip Mother the bedside [facility] can't find a hospital to accept her Septic emboli managed with IV antibiotics and overall supportive care is indicated Remains intubated Objective Exam General Appearance: No Apparent Distress, WD/WN, Chronically ill Respiratory: No Respiratory Distress, Decreased Breath Sounds Cardiovascular: Regular Rate, Rhythm Assessment/Plan Assessment and Plan Assess & Plan/Chief Complaint Heparin drip Ventilator management Antibiotics Supervisory-Addendum Brief Verification & Attestation Participated in pt care: history, MDM, physical Personally performed: exam, history, MDM, supervision of care Care discussed with: Medical Student Procedures: n/a Results interpretation: Verified all documentation Verification and Attestation of Medical Student E/M Service A medical student performed and documented this service in my presence. I reviewed and verified all information documented by the medical student and made modifications to such information, when appropriate. I personally performed the physical exam and medical decision making. Sherrill Casas, Jul 18, 2021,07:00 LORIE THAPA MED STUDENT Jul 17, 2021 12:37 SHERRILL CASAS DO Jul 18, 2021 07:01
[2021-07-17 14:31] VITALS: BP 114/60
[2021-07-17] MEDS: APAP 325 MG/10.15 ML LIQ (TYLENOL) UDC PO PRN (15:16)
--- NOTE | 2021-07-17 15:58 | Anesthesia-Procedure Note ---
Procedures/Interventions Procedure Start/Stop/Diagnosis Date of Procedure: Jul 17, 2021 Start Time: 15:47 Referring Physician: Dr Arrington Preprocedural Diagnosis: Resp. Failure, Septic Shock with Septic Emboli Brief History Called for arterial line placement. Pt is intubated and on levophed and heparin drips. Stop Time: 15:52 Postprocedural Diagnosis: Same Arterial Line Arterial Line Catheter: 20G Type: Radial Location: Left Procedure: prepped, draped in sterile fashion (ChloraPrep), good wave-form was obtained, patient tolerated procedure well, no immediate complications, post procedure area cleaned, post procedure dressing applied LINDA VALDEZ DO Jul 17, 2021 15:58
[2021-07-17] MEDS: VANCOMYCIN 1500 MG/NS 500 ML IVPB IV SCH ×2 (18:49)
[2021-07-17] MEDS: HEParin DRIP 25000 UNIT/500ML 500 ML IV SCH (23:49)
[2021-07-18] MEDS: RT-ALBUTEROL SULF 2.5 MG/3 ML PRE-MIX VIAL INH SCH ×6 (02:19→21:14)
[2021-07-18] MEDS: fentaNYL DRIP PRE-MIX 250 ML IV SCH ×2 (03:21→20:06)
[2021-07-18] MEDS: NS IV 1000 ML 1,000 ML IV SCH ×3 (03:58→16:17)
[2021-07-18 05:15] LABS: ABG BASE EXCESS -10.3 MMOL/L (-2.5-2.5); ABG OXYGEN SATURATION 99 % (94-100); ABG PCO2 32 MMHG (35-45); ABG PO2 143 MMHG (79-93); ABG TCO2 15.8 MMOL/L (21.0-31.0)
[2021-07-18 05:16] LABS: ALLENS TEST ARTLINE; BASOPHILS % (AUTO) 0 % (0-10); EOSINOPHILS % (AUTO) 0 % (0-10); INSPIRED O2 100%; PATIENT TEMP 37.2; VENTILATOR YES
[2021-07-18 05:18] LABS: HEMATOCRIT 25 % (35-52); HEMOGLOBIN 8.1 g/dL (11.5-16.0); LYMPHOCYTES # (AUTO) 0.8 10^3/uL (1.0-4.0); LYMPHOCYTES % (AUTO) 5 % (12-44); MEAN CORPUSCULAR HEMOGLOBIN 29 pg (25-34); MEAN CORPUSCULAR HGB CONC 32 g/dL (32-36); MEAN CORPUSCULAR VOLUME 91 fL (80-99); MEAN PLATELET VOLUME 11.6 fL (9.0-12.2); MONOCYTES # (AUTO) 0.2 10^3/uL (0.0-1.0); MONOCYTES % (AUTO) 1 % (0-12); NEUTROPHILS # (AUTO) 15.8 10^3/uL (1.8-7.8); NEUTROPHILS % (AUTO) 91 % (42-75); PLATELET COUNT 83 10^3/uL (130-400); WHITE BLOOD COUNT 17.5 10^3/uL (4.3-11.0)
[2021-07-18 05:25] LABS: ALBUMIN 1.8 GM/DL (3.2-4.5)
[2021-07-18 05:26] LABS: CALCIUM 6.5 MG/DL (8.5-10.1)
[2021-07-18] MEDS: DexMEDEtomidine 250 ML DRIP 250 ML IV SCH ×2 (05:26→23:43)
[2021-07-18 05:27] LABS: TOTAL PROTEIN 4.7 GM/DL (6.4-8.2)
[2021-07-18 05:29] LABS: BILIRUBIN,TOTAL 0.8 MG/DL (0.1-1.0)
[2021-07-18 05:30] LABS: PHOSPHORUS 2.7 MG/DL (2.3-4.7)
[2021-07-18 05:31] LABS: CREATININE SERUM 0.6 MG/DL (0.60-1.30)
[2021-07-18 05:32] LABS: BILIRUBIN,DIRECT 0.7 MG/DL (0.0-0.3); BILIRUBIN,INDIRECT 0.1 MG/DL
[2021-07-18 05:47] LABS: FIBRIN DEGRADATION PRODUCTS 13.09 UG/ML (0.00-0.49)
[2021-07-18] MEDS: POTASSIUM CL 10MEQ/50ML IVPB 50 ML IV SCH (06:06)
[2021-07-18] MEDS: KCL 20 MEQ TAB (K-DUR) PO SCH (06:06)
[2021-07-18] MEDS: MAGNESIUM 1 GM/100 ML IVPB 100 ML IV SCH (06:06)
[2021-07-18 06:18] LABS: ERYTHROCYTE SEDIMENTATION RATE > 140 MM/HR (0-20)
[2021-07-18] MEDS: VANCOMYCIN 1500 MG/NS 500 ML IVPB IV SCH ×4 (06:24→18:39)
[2021-07-18 06:32] VITALS: BP 104/58
--- NOTE | 2021-07-18 07:04 | Diagnostic Imaging Report ---
EXAMINATION: Portable erect AP chest at 6:06 AM INDICATION: Respiratory distress The heart size is within normal limits and stable when compared to 07/17/2021. The diffuse alveolar/interstitial pulmonary infiltrates involving both lungs seen previously are again evident. The density in the right lung base and in the left upper lung does seem somewhat greater than on the prior exam, signifying increasing pneumonia/atelectasis in these portions of the lung. The mediastinum is not widened. The osseous structures are intact. The supportive tubes and lines seem similar in position. IMPRESSION: The appearance of the chest has worsened somewhat since the prior study as there does appear to be greater involvement of the right lung base and left upper lobe by pneumonia/atelectasis. Dictated by: Dictated on workstation # [id number]
--- NOTE | 2021-07-18 08:21 | Occ Therapy Progress Note ---
Therapy Progress Note Pt currently intubated. OT to monitor pt's status and will initiate treatment when pt is medically stable and able to actively participate in skilled therapy. ERWIN NAGY Jul 18, 2021 08:21
[2021-07-18 08:24] LABS: INR 1.2 (0.8-1.4); PROTHROMBIN TIME PATIENT 15.2 SEC (12.2-14.7)
[2021-07-18] MEDS: PIPERACILLIN/TAZOBACTAM (BULK) 4.5 GM in NS (IVPB) 100 ML IV SCH ×3 (08:31→23:33)
[2021-07-18] MEDS: PANTOPRAZOLE 40 MG (PROTONIX) VIAL IV SCH ×3 (08:32→20:06)
--- NOTE | 2021-07-18 09:16 | Progress Note - Hospitalist ---
Subjective HPI/CC On Admission Date Seen by Provider: Jul 18, 2021 Time Seen by Provider: 11:00 Chief complaint: Respiratory failure History present illness: This is a 40-year-old white female who presented with altered mental status and meth use was found to have 103 fever and a multitude of other issues which resulted in significant decompensation requiring intubation. Bilateral pneumonia will be treated with Zosyn and vancomycin. Subjective/Events-last exam Patient still critical White count 17.5 Hemoglobin 8.1 Thrombocytopenia noted ABG reveals 7.3 0/32/140 72 hospitals have declined acceptance of transfer Focused Exam Lactate Level 07/16/21 14:00: Lactic Acid Level 3.67*H 07/16/21 16:22: Lactic Acid Level 3.48*H 07/17/21 05:30: Lactic Acid Level 2.88*H Objective Exam Vital Signs Vital Signs Date Time Temp Pulse Resp B/P (MAP) Pulse Ox O2 Delivery O2 Flow Rate FiO2 07/19/21 06:34 87 108/63 07/19/21 06:00 37.1 96 Mechanical Ventilator 35.00 07/19/21 03:00 34 07/19/21 02:56 35 Capillary Refill : Less Than 3 Seconds General Appearance: Chronically ill, Other (sedated intubated) Respiratory: Decreased Breath Sounds, Rales Cardiovascular: Regular Rate, Rhythm Results/Procedures Lab Laboratory Tests 07/19/21 04:00 Patient resulted labs reviewed. Assessment/Plan Assessment and Plan Assess & Plan/Chief Complaint Respiratory failure -Currently intubated, managed by RT -Pt Acidotic this morning, vent adjusted and will recheck tomorrow -Working on transferring patient to another facility Bilateral pneumonia -Continue zosyn and vanc -CXR today shows worsening opacites Hyponatremia -Continuing to improve, 136 this morning -Continue to monitor w/ labs Rhabdomyolysis -IV fluids Acidosis -Repeat ABG tomorrow -Pt a little worse today at 7.26 UTI -Continue ABX Sepsis -Source of infection likely embolus seen on CT -Continue ABX 07/18/2021: Supportive care IV antibiotics Prognosis grave Critical Care Critically Ill Patient Diagnosis/Problems Diagnosis/Problems (1) Multilobar lung infiltrate Status: Acute (2) Sepsis Status: Acute (3) Methamphetamine abuse Status: Acute SHERRILL CASAS DO Jul 18, 2021 09:16
[2021-07-18 09:31] VITALS: BP 137/74
--- NOTE | 2021-07-18 09:36 | Tele-ICU Progress Note ---
Progress Note video rounds completed reviewed patient with bedside RN 40 y/o female with septic shock from ilopsoas abscess and possible eptic emboli from iliac vein DVT. On heparin drip Surgery on consult On mechanical vent with FIO2 35% and PEEP 5 On antibiotic for PNA and septic emboli Overall still hemodynamicaly instable with borderline BP Hr 86 BP: 88/50 O2 at 92% Focused Exam Lactate Level 07/16/21 14:00: Lactic Acid Level 3.67*H 07/16/21 16:22: Lactic Acid Level 3.48*H 07/17/21 05:30: Lactic Acid Level 2.88*H Height, Weight, BMI Height: 5'8.00" Weight: 167lbs. 0.0oz. 75.167309tm; 32.65 BMI Method:Estimated Laboratory Tests 07/18/21 05:05 Labs Labs Laboratory Tests 07/17/21 12:02: Glucometer 102 07/17/21 13:15: Activated Partial Thromboplast Time 56H 07/17/21 18:23: Glucometer 107 07/17/21 20:00: Activated Partial Thromboplast Time 62H 07/17/21 23:29: Glucometer 123H 07/18/21 05:05: White Blood Count 17.5H, Red Blood Count 2.78L, Hemoglobin 8.1L, Hematocrit 25L, Mean Corpuscular Volume 91, Mean Corpuscular Hemoglobin 29, Mean Corpuscular Hemoglobin Concent 32, Red Cell Distribution Width 15.6H, Platelet Count 83L, Mean Platelet Volume 11.6, Immature Granulocyte % (Auto) 3, Neutrophils (%) (Auto) 91H, Lymphocytes (%) (Auto) 5L, Monocytes (%) (Auto) 1, Eosinophils (%) (Auto) 0, Basophils (%) (Auto) 0, Neutrophils # (Auto) 15.8H, Lymphocytes # (Auto) 0.8L, Monocytes # (Auto) 0.2, Eosinophils # (Auto) 0.0, Basophils # (Auto) 0.0, Immature Granulocyte # (Auto) 0.6H, Percent Immature Platelet Fraction 7.1, Erythrocyte Sedimentation Rate > 140H, Prothrombin Time 15.2H, INR Comment 1.2, Activated Partial Thromboplast Time 64H, D-Dimer 13.09H, Blood Gas Puncture Site ARTLINE, Blood Gas Patient Temperature 37.2, Arterial Blood pH 7.30*L, Arterial Blood Partial Pressure CO2 32L, Arterial Blood Partial Pressure O2 143H, Arterial Blood HCO3 15*L, Arterial Blood Total CO2 15.8L, Arterial Blood Oxygen Saturation 99, Arterial Blood Base Excess -10.3L, Luis Test ARTLINE, Blood Gas Ventilator Setting YES, Blood Gas Inspired Oxygen 100%, Sodium Level 141, Potassium Level 4.0, Chloride Level 117H, Carbon Dioxide Level 15L, Anion Gap 9, Blood Urea Nitrogen 17, Creatinine 0.60, Estimat Glomerular Filtration Rate 112, BUN/Creatinine Ratio 28, Glucose Level 150H, Calcium Level 6.5L, Corrected Calcium 8.3L, Phosphorus Level 2.7, Magnesium Level 3.0H, Total Bilirubin 0.8, Direct Bilirubin 0.7H, Indirect Bilirubin 0.1, Aspartate Amino Transf (AST/SGOT) 87H, Alanine Aminotransferase (ALT/SGPT) 41, Alkaline Phosphatase 99, Total Creatine Kinase 802H, Myoglobin 278.2H, Total Protein 4.7L , Albumin 1.8L, Triglycerides Level 186H Microbiology 07/16/21 Blood Culture - Final, Complete Staphylococcus aureus 07/15/21 Gram Stain - Final, Resulted 07/15/21 Sputum Culture - Preliminary, Resulted Staphylococcus aureus Haemophilus influenza 07/15/21 Urine Culture - Final, Complete Staphylococcus aureus Exam Last Set of Vital Signs Vital Signs 07/18/21 07/18/21 07/18/21 07/18/21 07/18/21 07/18/21 05:00 06:00 06:27 06:32 07:00 07:53 Temp 37.7 Pulse 90 Resp 29 B/P (MAP) 109/67 Pulse Ox 96 O2 Delivery Mechanical Ventilator O2 Flow Rate 35.00 FiO2 35 I&O Intake and Output 07/18/21 00:00 Intake Total 8925 ml Output Total 2575 ml Balance 6350 ml Intake Oral 0 ml IV Total 8925 ml Output Urine Total 2575 ml Results Lab Laboratory Tests 07/18/21 05:05 BRENDA FREED MD Jul 18, 2021 09:36
[2021-07-18] MEDS: PROPOFOL DRIP (ICU) 100 ML IV SCH ×2 (11:08→20:06)
[2021-07-18] MEDS: NOREPINEPHRINE 8 MG/250 ML 250 ML IV SCH (11:08)
[2021-07-18 14:26] VITALS: BP 108/63
[2021-07-18] MEDS: HEParin 1000 UNIT/ML (10ML VIAL) FOR BOLUS IV SCH ×2 (14:37→21:30)
--- NOTE | 2021-07-18 15:14 | Progress Note - Surgery ---
Subjective Time Seen by a Provider: 09:08 Subjective/Events-last exam Pt seen and examined, sedated and intubated. Review of Systems General: No Chills, No Night Sweats, No Fatigue, No Malaise Unable to obtain, pt sedated and intubated Focused Exam Lactate Level 07/16/21 14:00: Lactic Acid Level 3.67*H 07/16/21 16:22: Lactic Acid Level 3.48*H 07/17/21 05:30: Lactic Acid Level 2.88*H Objective Exam Vital Signs Date Time Temp Pulse Resp B/P (MAP) Pulse Ox O2 Delivery O2 Flow Rate FiO2 07/18/21 14:48 35 07/18/21 14:26 85 32 98 35 07/18/21 13:00 82 07/18/21 12:04 96 Mechanical Ventilator 35 07/18/21 11:17 35 07/18/21 11:08 83 119/66 07/18/21 11:08 86 137/74 07/18/21 09:31 86 31 96 35 07/18/21 09:00 89 38 96 Mechanical Ventilator 35.00 07/18/21 08:00 90 30 97 Mechanical Ventilator 35.00 07/18/21 07:53 96 Mechanical Ventilator 35 07/18/21 07:00 90 07/18/21 07:00 89 33 94 Mechanical Ventilator 35.00 07/18/21 06:35 35 07/18/21 06:32 89 29 95 35 07/18/21 06:27 Mechanical Ventilator 35.00 07/18/21 06:00 37.7 93 25 95 Mechanical Ventilator 40.00 07/18/21 05:45 90 78 95 07/18/21 05:30 93 30 94 07/18/21 05:00 36.7 89 22 109/67 97 Mechanical Ventilator 40.00 07/18/21 04:30 89 55 97 07/18/21 04:15 87 66 97 07/18/21 04:00 36.8 93 18 93/51 98 Mechanical Ventilator 40.00 07/18/21 04:00 96 Mechanical Ventilator 40 07/18/21 03:45 92 28 97 07/18/21 03:30 93 54 97 07/18/21 03:22 36.9 07/18/21 03:15 92 27 97 07/18/21 03:00 36.9 92 18 117/60 97 Mechanical Ventilator 40.00 07/18/21 02:56 40 07/18/21 02:45 92 58 97 07/18/21 02:30 92 29 96 07/18/21 02:19 91 31 96 40 07/18/21 02:15 91 25 96 07/18/21 02:00 37.1 90 22 116/64 96 Mechanical Ventilator 40.00 07/18/21 01:45 90 81 97 07/18/21 01:15 90 46 97 07/18/21 01:00 37.1 91 24 115/63 97 Mechanical Ventilator 40.00 07/18/21 01:00 91 07/18/21 00:45 91 51 96 07/18/21 00:30 28 97 07/18/21 00:15 93 36 98 07/18/21 00:00 94 Mechanical Ventilator 40 07/18/21 00:00 37.4 89 23 138/70 95 Mechanical Ventilator 40.00 07/17/21 23:45 93 52 96 07/17/21 23:30 24 97 07/17/21 23:21 40 07/17/21 23:20 38.1 Mechanical Ventilator 40.00 07/17/21 23:15 95 25 93 07/17/21 23:00 38.1 96 23 107/59 95 Mechanical Ventilator 35.00 07/17/21 22:59 98 116/59 07/17/21 22:45 96 34 95 07/17/21 22:38 37.1 07/17/21 22:15 92 25 98 07/17/21 22:12 92 25 98 40 07/17/21 22:00 38.2 95 22 109/56 95 Mechanical Ventilator 35.00 07/17/21 21:45 94 23 96 07/17/21 21:30 94 23 95 07/17/21 21:15 93 22 94 07/17/21 21:00 38.1 91 23 124/62 94 Mechanical Ventilator 35.00 07/17/21 20:45 93 23 95 07/17/21 20:30 92 34 94 07/17/21 20:15 92 22 93 07/17/21 20:08 38.1 Mechanical Ventilator 35.00 07/17/21 20:00 97 Mechanical Ventilator 40 07/17/21 20:00 38.1 92 23 114/62 98 Mechanical Ventilator 40.00 07/17/21 19:57 37.3 07/17/21 19:45 92 23 97 07/17/21 19:30 93 23 97 07/17/21 19:15 93 24 99 07/17/21 19:00 95 07/17/21 19:00 38.3 95 25 120/62 97 Mechanical Ventilator 40.00 07/17/21 18:38 94 26 98 40 07/17/21 18:30 30 07/17/21 18:14 38.5 Mechanical Ventilator 40.00 Automatic Cuff 07/17/21 18:00 97 23 91 Mechanical Ventilator 30.00 07/17/21 17:45 98 24 89 Mechanical Ventilator 30.00 07/17/21 17:30 98 24 90 Mechanical Ventilator 30.00 07/17/21 17:15 98 22 90 Mechanical Ventilator 30.00 07/17/21 17:00 99 23 90 Mechanical Ventilator 30.00 07/17/21 16:45 99 24 90 Mechanical Ventilator 30.00 07/17/21 16:35 38.8 07/17/21 16:30 99 24 90 Mechanical Ventilator 30.00 07/17/21 16:15 101 24 90 Mechanical Ventilator 30.00 07/17/21 16:00 100 25 91 Mechanical Ventilator 30.00 07/17/21 16:00 94 Mechanical Ventilator 30 07/17/21 15:55 38.5 07/17/21 15:30 101 20 107/59 93 Mechanical Ventilator 30.00 07/17/21 15:23 39.3 07/17/21 15:16 39.3 07/17/21 15:15 102 26 108/56 93 Mechanical Ventilator 30.00 I & O 07/18/21 07:00 Intake Total 9325 ml Output Total 2775 ml Balance 6550 ml Capillary Refill : Less Than 3 Seconds General Appearance: Chronically ill HEENT: Other (ET tube in place) Respiratory: Decreased Breath Sounds, Other (sedated and intubated) Cardiovascular: Regular Rate, Rhythm Gastrointestinal: normal bowel sounds, soft Extremity: No Pedal Edema Neurologic/Psychiatric: Other (pt sedated and intubated) Results Lab Laboratory Tests 07/17/21 18:23: Glucometer 107 07/17/21 20:00: Activated Partial Thromboplast Time 62H 07/17/21 23:29: Glucometer 123H 07/18/21 05:05: Activated Partial Thromboplast Time 64H, White Blood Count 17.5H, Red Blood Count 2.78L, Hemoglobin 8.1L, Hematocrit 25L, Mean Corpuscular Volume 91, Mean Corpuscular Hemoglobin 29, Mean Corpuscular Hemoglobin Concent 32, Red Cell Distribution Width 15.6H, Platelet Count 83L, Mean Platelet Volume 11.6, Immature Granulocyte % (Auto) 3, Neutrophils (%) (Auto) 91H, Lymphocytes (%) (Auto) 5L, Monocytes (%) (Auto) 1, Eosinophils (%) (Auto) 0, Basophils (%) (Auto) 0, Neutrophils # (Auto) 15.8H, Lymphocytes # (Auto) 0.8L, Monocytes # (Auto) 0.2, Eosinophils # (Auto) 0.0, Basophils # (Auto) 0.0, Immature Granulocyte # (Auto) 0.6H, Percent Immature Platelet Fraction 7.1, Erythrocyte Sedimentation Rate > 140H, Prothrombin Time 15.2H, INR Comment 1.2, D-Dimer 13.09H, Blood Gas Puncture Site ARTLINE, Blood Gas Patient Temperature 37.2, Arterial Blood pH 7.30*L, Arterial Blood Partial Pressure CO2 32L, Arterial Blood Partial Pressure O2 143H, Arterial Blood HCO3 15*L, Arterial Blood Total CO2 15.8L, Arterial Blood Oxygen Saturation 99, Arterial Blood Base Excess - 10.3L, Luis Test ARTLINE, Blood Gas Ventilator Setting YES, Blood Gas Inspired Oxygen 100%, Sodium Level 141, Potassium Level 4.0, Chloride Level 117H, Carbon Dioxide Level 15L, Anion Gap 9, Blood Urea Nitrogen 17, Creatinine 0.60, Estimat Glomerular Filtration Rate 112, BUN/Creatinine Ratio 28, Glucose Level 150H, Calcium Level 6.5L, Corrected Calcium 8.3L, Phosphorus Level 2.7, Magnesium Level 3.0H, Total Bilirubin 0.8, Direct Bilirubin 0.7H, Indirect Bilirubin 0.1, Aspartate Amino Transf (AST/SGOT) 87H, Alanine Aminotransferase (ALT/SGPT) 41, Alkaline Phosphatase 99, Total Creatine Kinase 802H, Myoglobin 278.2H, Total Protein 4.7L, Albumin 1.8L, Triglycerides Level 186H 07/18/21 14:00: Activated Partial Thromboplast Time 45H Microbiology 07/16/21 Blood Culture - Final, Complete Staphylococcus aureus 07/15/21 Gram Stain - Final, Complete 07/15/21 Sputum Culture - Final, Complete Staphylococcus aureus Haemophilus influenza 07/15/21 Urine Culture - Final, Complete Staphylococcus aureus Assessment/Plan Assessment/Plan Assessment/Plan Ilio-Psoas Abscess Acute respiratory failure Drug OD venous/arterial septic thrombosis Pt is on heparin gtt, awaiting transfer to cardiovascular surg There is nothing I can offer pt, I have never tried to do an I&D in the retroperitoneum and do not feel comfortable doing that. She also has distended colon which would make if very hard to get to the retroperitoneum and on top of that is a very poor surgical candidate. JONE STODDARD DO Jul 18, 2021 15:14
[2021-07-18] MEDS: HEParin DRIP 25000 UNIT/500ML 500 ML IV SCH (16:18)
[2021-07-19] MEDS: RT-ALBUTEROL SULF 2.5 MG/3 ML PRE-MIX VIAL INH SCH ×6 (02:49→22:21)
[2021-07-19 04:17] LABS: ABG BASE EXCESS -10.8 MMOL/L (-2.5-2.5); ABG OXYGEN SATURATION 98 % (94-100); ABG PCO2 28 MMHG (35-45); ABG PO2 119 MMHG (79-93); ABG TCO2 14.9 MMOL/L (21.0-31.0)
[2021-07-19 04:21] LABS: ALLENS TEST ARTLINE
[2021-07-19 04:22] LABS: INSPIRED O2 35%; PATIENT TEMP 37.1; VENTILATOR YES
[2021-07-19 04:23] LABS: ABG PH 7.32 (7.37-7.43)
[2021-07-19 04:32] LABS: BASOPHILS % (AUTO) 0 % (0-10); EOSINOPHILS # (AUTO) 0.1 10^3/uL (0.0-0.3); EOSINOPHILS % (AUTO) 0 % (0-10); HEMATOCRIT 27 % (35-52); HEMOGLOBIN 8.4 g/dL (11.5-16.0); LYMPHOCYTES # (AUTO) 0.8 10^3/uL (1.0-4.0); LYMPHOCYTES % (AUTO) 5 % (12-44); MEAN CORPUSCULAR HEMOGLOBIN 29 pg (25-34); MEAN CORPUSCULAR HGB CONC 32 g/dL (32-36); MEAN CORPUSCULAR VOLUME 91 fL (80-99); MEAN PLATELET VOLUME 11.7 fL (9.0-12.2); MONOCYTES # (AUTO) 0.2 10^3/uL (0.0-1.0); MONOCYTES % (AUTO) 1 % (0-12); NEUTROPHILS # (AUTO) 14.6 10^3/uL (1.8-7.8); NEUTROPHILS % (AUTO) 87 % (42-75); PLATELET COUNT 98 10^3/uL (130-400); WHITE BLOOD COUNT 16.7 10^3/uL (4.3-11.0)
[2021-07-19 04:48] LABS: INR 1.2 (0.8-1.4); PROTHROMBIN TIME PATIENT 15.1 SEC (12.2-14.7)
[2021-07-19 04:59] LABS: ALBUMIN 1.8 GM/DL (3.2-4.5); POTASSIUM 3.9 MMOL/L (3.6-5.0)
[2021-07-19 05:04] LABS: PHOSPHORUS 2.3 MG/DL (2.3-4.7)
[2021-07-19 05:05] LABS: CREATININE SERUM 0.63 MG/DL (0.60-1.30)
[2021-07-19 05:07] LABS: MAGNESIUM 2.9 MG/DL (1.6-2.4)
[2021-07-19] MEDS: NOREPINEPHRINE 8 MG/250 ML 250 ML IV SCH ×2 (05:09→18:05)
[2021-07-19] MEDS: HEParin DRIP 25000 UNIT/500ML 500 ML IV SCH ×2 (05:10→18:10)
[2021-07-19] MEDS: HEParin 1000 UNIT/ML (10ML VIAL) FOR BOLUS IV SCH ×3 (05:11→18:04)
[2021-07-19] MEDS: PROPOFOL DRIP (ICU) 100 ML IV SCH ×2 (06:34→18:04)
[2021-07-19] MEDS: VANCOMYCIN 1500 MG/NS 500 ML IVPB IV SCH ×4 (06:35→18:47)
[2021-07-19] MEDS: MAGNESIUM 1 GM/100 ML IVPB 100 ML IV SCH (06:43)
[2021-07-19] MEDS: POTASSIUM CL 10MEQ/50ML IVPB 50 ML IV SCH (06:43)
[2021-07-19] MEDS: KCL 20 MEQ TAB (K-DUR) PO SCH (06:43)
[2021-07-19 06:47] VITALS: BP 102/64
--- NOTE | 2021-07-19 06:59 | Diagnostic Imaging Report ---
INDICATION: Respiratory failure Single AP view of the chest is obtained with comparison made to study of one day earlier. Extensive bilateral nodular airspace disease has a stable overall appearance. No pneumothorax is identified. Endotracheal tube is in place with tip just below the thoracic inlet. Nasogastric tube passes below the diaphragm. IMPRESSION: Extensive nodular airspace disease is again demonstrated throughout both lungs without significant adverse change. This may be infectious, inflammatory or neoplastic in nature. Dictated by: Dictated on workstation # [id number]
--- NOTE | 2021-07-19 09:14 | Progress Note - Surgery ---
ADÁN MERCER MED STUDENT 07/19/21 0914: Subjective Date Seen by a Provider: Jul 19, 2021 Time Seen by a Provider: 08:15 Subjective/Events-last exam This is Kassyha a 40 yo female with the chief complaint of methamphetamine abuse, septic shock, and UTI. Upon entering the room Pt was intubated and unable to arouse. Pt is not on TPN and has not had a BM for multiple days accounting to the nursing staff. The nursing staff is having difficulties with Heparin drip remaining in the subtheriputic range and requested assistance on what to do moving forward. Review of Systems Neurological: Other (sedated and intubated) Focused Exam Lactate Level 07/16/21 14:00: Lactic Acid Level 3.67*H 07/16/21 16:22: Lactic Acid Level 3.48*H 07/17/21 05:30: Lactic Acid Level 2.88*H Time of Focused Exam: 08:15 Respiratory: Decreased Breath Sounds, Other (Pt intubated) Cardiovascular: Regular Rate, Rhythm, No Gallop, No Murmur Skin: warm/dry Objective Exam Vital Signs Date Time Temp Pulse Resp B/P (MAP) Pulse Ox O2 Delivery O2 Flow Rate FiO2 07/19/21 06:47 90 33 92 35 07/19/21 06:34 87 07/19/21 06:00 37.1 87 96 Mechanical Ventilator 35.00 07/19/21 05:09 88 07/19/21 05:00 37.0 87 100 Mechanical Ventilator 35.00 07/19/21 04:00 96 Mechanical Ventilator 35 07/19/21 04:00 37.1 86 100 Mechanical Ventilator 35.00 07/19/21 03:00 37.2 88 34 99 Mechanical Ventilator 35.00 07/19/21 02:56 35 07/19/21 02:49 86 33 98 35 07/19/21 02:00 37.1 85 34 99 Mechanical Ventilator 35.00 07/19/21 01:00 37.2 89 33 100 Mechanical Ventilator 35.00 07/19/21 01:00 89 07/19/21 00:00 37.2 89 33 100 Mechanical Ventilator 35.00 07/18/21 23:59 96 Mechanical Ventilator 35 07/18/21 23:43 90 /07/18/21 23:00 37.2 92 34 100 Mechanical Ventilator 35.00 07/18/21 22:56 35 07/18/21 22:00 37.3 90 31 100 Mechanical Ventilator 35.00 07/18/21 21:14 82 29 97 35 07/18/21 21:00 37.3 86 32 98 Mechanical Ventilator 35.00 07/18/21 20:06 83 108/63 07/18/21 20:00 37.4 86 34 97 Mechanical Ventilator 35.00 07/18/21 20:00 96 Mechanical Ventilator 35 07/18/21 19:19 83 28 98 35 07/18/21 19:00 37.5 85 32 97 Mechanical Ventilator 35.00 07/18/21 19:00 86 07/18/21 18:28 35 07/18/21 18:00 37.3 86 30 98 Mechanical Ventilator 35.00 07/18/21 17:00 37.2 85 31 99 Mechanical Ventilator 35.00 07/18/21 16:31 96 Mechanical Ventilator 35 07/18/21 16:00 37.0 83 31 100 Mechanical Ventilator 35.00 07/18/21 15:00 36.9 83 28 100 Mechanical Ventilator 35.00 07/18/21 14:48 35 07/18/21 14:26 85 32 98 35 07/18/21 14:00 37.1 78 90 Mechanical Ventilator 35.00 07/18/21 13:00 82 07/18/21 13:00 37.1 80 29 92 Mechanical Ventilator 35.00 07/18/21 12:04 96 Mechanical Ventilator 35 07/18/21 12:00 37.0 81 29 94 Mechanical Ventilator 35.00 07/18/21 11:17 35 07/18/21 11:08 83 119/66 07/18/21 11:08 86 137/74 07/18/21 11:00 37.1 81 29 96 Mechanical Ventilator 35.00 07/18/21 10:00 37.4 90 23 Mechanical Ventilator 35.00 07/18/21 09:31 86 31 96 35 I & O 07/19/21 07:00 Intake Total 1865 ml Output Total 1475 ml Balance 390 ml Capillary Refill : Less Than 3 Seconds General Appearance: Chronically ill, Other (sedated and intubated) HEENT: Other (ET tube in place) Neck: Normal Inspection Respiratory: Decreased Breath Sounds Cardiovascular: Regular Rate, Rhythm, No Gallop, No Murmur Gastrointestinal: distended Extremity: Pedal Edema (minimal bilaterally) Neurologic/Psychiatric: Other (pt sedated and intubated) Skin: Warm/Dry Results Lab Laboratory Tests 07/18/21 14:00: Activated Partial Thromboplast Time 45H 07/18/21 17:37: Glucometer 141H 07/18/21 20:12: Activated Partial Thromboplast Time 51H 07/18/21 23:42: Glucometer 126H 07/19/21 04:00: White Blood Count 16.7H, Red Blood Count 2.92L, Hemoglobin 8.4L, Hematocrit 27L, Mean Corpuscular Volume 91, Mean Corpuscular Hemoglobin 29, Mean Corpuscular Hemoglobin Concent 32, Red Cell Distribution Width 15.9H, Platelet Count 98L, Mean Platelet Volume 11.7, Immature Granulocyte % (Auto) 6, Neutrophils (%) (Auto) 87H, Lymphocytes (%) (Auto) 5L, Monocytes (%) (Auto) 1, Eosinophils (%) (Auto) 0, Basophils (%) (Auto) 0, Neutrophils # (Auto) 14.6H, Lymphocytes # (Auto) 0.8L, Monocytes # (Auto) 0.2, Eosinophils # (Auto) 0.1, Basophils # (Auto) 0.0, Immature Granulocyte # (Auto) 1.1H, Percent Immature Platelet Fraction 9.7H, Prothrombin Time 15.1H, INR Comment 1.2, Activated Partial Thromboplast Time 46H, Blood Gas Puncture Site ARTLINE, Blood Gas Patient Temperature 37.1, Arterial Blood pH 7.32*L, Arterial Blood Partial Pressure CO2 28L, Arterial Blood Partial Pressure O2 119H, Arterial Blood HCO3 14*L, Arterial Blood Total CO2 14.9L, Arterial Blood Oxygen Saturation 98, Arterial Blood Base Excess -10.8L, Luis Test ARTLINE, Blood Gas Ventilator Setting YES, Blood Gas Inspired Oxygen 35%, Sodium Level 143, Potassium Level 3.9, Chloride Level 117H, Carbon Dioxide Level 13L, Anion Gap 13, Blood Urea Nitrogen 26H, Creatinine 0.63, Estimat Glomerular Filtration Rate 106, BUN/Creatinine Ratio 41, Glucose Level 142H, Calcium Level 7.0L, Corrected Calcium 8.8, Phosphorus Level 2.3, Magnesium Level 2.9H, Total Bilirubin 1.0, Aspartate Amino Transf (AST/SGOT) 96H , Alanine Aminotransferase (ALT/SGPT) 38, Alkaline Phosphatase 107, Total Protein 5.0L, Albumin 1.8L Microbiology 07/16/21 Blood Culture - Final, Complete Staphylococcus aureus 07/15/21 Gram Stain - Final, Complete 07/15/21 Sputum Culture - Final, Complete Staphylococcus aureus Haemophilus influenza 07/15/21 Urine Culture - Final, Complete Staphylococcus aureus Assessment/Plan Assessment/Plan Assessment/Plan Asessment: Ilio-Psoas Abscess Acute respiratory failure Drug OD venous/arterial septic thrombosis distended abdomen poor surgical candidate sedated and intubated leukocytosis- WBC of 16.7 on 07/19, down from 17.5 anemia- Hgb of 8.4 on 07/19, up from 8.1 ABG of 7.///14 CXR on 07/19 showed extensive nodular airspace disease, no change from previous subtherapeutic Heparin drip Plan: assess Heparin drip awaiting transfer to cardiovascular surg . JONE STODDARD DO 07/19/21 1656: Subjective Time Seen by a Provider: 13:33 Subjective/Events-last exam Pt seen intubated on vent. Non-responsive Review of Systems unable to obtain, pt non-responsive Objective Exam General Appearance: Chronically ill, Other (sedated and intubated) HEENT: Other (ET tube in place) Respiratory: Decreased Breath Sounds, Other (ventilated) Cardiovascular: Regular Rate, Rhythm, No Murmur Gastrointestinal: distended Extremity: Pedal Edema (minimal bilaterally) Assessment/Plan Assessment/Plan Assessment/Plan Ilio-Psoas Abscess Acute respiratory failure Drug OD venous/arterial septic thrombosis distended abdomen poor surgical candidate sedated and intubated leukocytosis- WBC of 16.7 on 07/19, down from 17.5 anemia- Hgb of 8.4 on 07/19, up from 8.1 ABG of 7.//119/14 CXR on 07/19 showed extensive nodular airspace disease, no change from previous subtherapeutic Heparin drip Plan: Pt is not a surgical candidate, would recommend a long discussion with family. Supervisory-Addendum Brief Verification & Attestation Participated in pt care: history, MDM, physical Personally performed: exam, history, MDM, supervision of care Care discussed with: Medical Student Procedures: n/a Verification and Attestation of Medical Student E/M Service A medical student performed and documented this service. I then reviewed and verified all information documented by the medical student and made modifications to such information, when appropriate. I personally performed a physical exam, medical decision making and then discussed any differences between the notes and made revisions as necessary to create one note. Jone Stoddard , 07/19/21 , 16:56 ADÁN MERCER MED STUDENT Jul 19, 2021 09:14 JONE STODDARD DO Jul 19, 2021 16:56
[2021-07-19] MEDS ORDERED: SODIUM BICARB 8.4% 50 MEQ/50 ML (ABBOTT) SYR IV ONE ×2 (09:30→14:15)
[2021-07-19] MEDS: PIPERACILLIN/TAZOBACTAM (BULK) 4.5 GM in NS (IVPB) 100 ML IV SCH ×2 (09:36→17:03)
[2021-07-19] MEDS: NS IV 1000 ML 1,000 ML IV SCH ×2 (09:36→17:03)
[2021-07-19] MEDS: PANTOPRAZOLE 40 MG (PROTONIX) VIAL IV SCH ×2 (09:37→20:44)
[2021-07-19 10:28] VITALS: BP 103/60
--- NOTE | 2021-07-19 10:47 | Progress Note - Hospitalist ---
Subjective HPI/CC On Admission Date Seen by Provider: Jul 19, 2021 Time Seen by Provider: 11:00 Chief complaint: Respiratory failure History present illness: This is a 40-year-old white female who presented with altered mental status and meth use was found to have 103 fever and a multitude of other issues which resulted in significant decompensation requiring intubation. Bilateral pneumonia will be treated with Zosyn and vancomycin. Subjective/Events-last exam Patient about the same Maintain on ventilator No transfer for her abscess since Cardiovascular Surgery out of [facility] told me no surgery indicated Heparin drip maintained She is on a maximum dose of heparin drip Receiving boluses for heparin every 6 hours Antibiotics maintained Focused Exam Lactate Level 07/16/21 16:22: Lactic Acid Level 3.48*H 07/17/21 05:30: Lactic Acid Level 2.88*H Time of Focused Exam: 08:15 Objective Exam Vital Signs Vital Signs Date Time Temp Pulse Resp B/P (MAP) Pulse Ox O2 Delivery O2 Flow Rate FiO2 07/19/21 14:27 100 33 89 30 07/19/21 12:00 37.4 Mechanical Ventilator 35.00 Capillary Refill : Less Than 3 Seconds General Appearance: No Apparent Distress, WD/WN, Chronically ill, Other (Sedated and intubated) Respiratory: No Accessory Muscle Use, No Respiratory Distress, Decreased Breath Sounds, Rales Cardiovascular: Regular Rate, Rhythm Results/Procedures Lab Laboratory Tests 07/19/21 04:00 Patient resulted labs reviewed. Assessment/Plan Assessment and Plan Assess & Plan/Chief Complaint Respiratory failure Bilateral pneumonia -Continue zosyn and vanc Hyponatremia resolved Rhabdomyolysis from meth use Metabolic acidosis UTI on antibiotics Sepsis Septic emboli causing trash foot trash hand 07/18/2021: Supportive care IV antibiotics Prognosis grave 07/19/2021: Supportive care No transfer required continue heparin drip per cardiovascular surgery in [facility] consult Critical Care Critically Ill Patient Diagnosis/Problems Diagnosis/Problems (1) Multilobar lung infiltrate Status: Acute (2) Sepsis Status: Acute (3) Methamphetamine abuse Status: Acute SHERRILL CASAS DO Jul 19, 2021 10:47
--- NOTE | 2021-07-19 11:06 | Tele-ICU Progress Note ---
Subjective Date Seen by a Provider: Jul 19, 2021 Time Seen by a Provider: 09:25 Subjective/Events-last exam Patient remained on mechanical ventilation. She grimaces with the pain stimuli. Hemodynamically stable. Blood cultures grew MRSA. Echocardiogram did not report any vegetations. CT of the head is negative for any cerebral abscess. Hemodynamically stable and urine output is good. So far she was not able to be transferred to a tertiary care hospital. I have advised the RN to give her a sedation vacation and reassess her neuro status. We will get a vancomycin peak and trough tomorrow. Review of Systems ROS PER ATTENDING PHYSICIAN Sepsis Event Evaluation Height, Weight, BMI Height: 5'8.00" Weight: 167lbs. 0.0oz. 75.917416wt; 32.65 BMI Method:Estimated Focused Exam Lactate Level 07/16/21 14:00: Lactic Acid Level 3.67*H 07/16/21 16:22: Lactic Acid Level 3.48*H 07/17/21 05:30: Lactic Acid Level 2.88*H Time of Focused Exam: 08:15 Exam Exam Patient acknowledged, consented, and participated in this virtual visit which was conducted using real time audio/video Vital Signs Date Time Temp Pulse Resp B/P (MAP) Pulse Ox O2 Delivery O2 Flow Rate FiO2 07/19/21 10:28 90 36 94 35 07/19/21 06:47 90 33 92 35 07/19/21 06:34 87 108/63 07/19/21 06:00 37.1 87 96 Mechanical Ventilator 35.00 07/19/21 05:09 88 108/63 07/19/21 05:00 37.0 87 100 Mechanical Ventilator 35.00 07/19/21 04:00 96 Mechanical Ventilator 35 07/19/21 04:00 37.1 86 100 Mechanical Ventilator 35.00 07/19/21 03:00 37.2 88 34 99 Mechanical Ventilator 35.00 07/19/21 02:56 35 07/19/21 02:49 86 33 98 35 07/19/21 02:00 37.1 85 34 99 Mechanical Ventilator 35.00 07/19/21 01:00 37.2 89 33 100 Mechanical Ventilator 35.00 07/19/21 01:00 89 07/19/21 00:00 37.2 89 33 100 Mechanical Ventilator 35.00 07/18/21 23:59 96 Mechanical Ventilator 35 07/18/21 23:43 90 108/63 07/18/21 23:00 37.2 92 34 100 Mechanical Ventilator 35.00 07/18/21 22:56 35 07/18/21 22:00 37.3 90 31 100 Mechanical Ventilator 35.00 07/18/21 21:14 82 29 97 35 07/18/21 21:00 37.3 86 32 98 Mechanical Ventilator 35.00 07/18/21 20:06 83 108/63 07/18/21 20:00 37.4 86 34 97 Mechanical Ventilator 35.00 07/18/21 20:00 96 Mechanical Ventilator 35 07/18/21 19:19 83 28 98 35 07/18/21 19:00 37.5 85 32 97 Mechanical Ventilator 35.00 07/18/21 19:00 86 07/18/21 18:28 35 07/18/21 18:00 37.3 86 30 98 Mechanical Ventilator 35.00 07/18/21 17:00 37.2 85 31 99 Mechanical Ventilator 35.00 07/18/21 16:31 96 Mechanical Ventilator 35 07/18/21 16:00 37.0 83 31 100 Mechanical Ventilator 35.00 07/18/21 15:00 36.9 83 28 100 Mechanical Ventilator 35.00 07/18/21 14:48 35 07/18/21 14:26 85 32 98 35 07/18/21 14:00 37.1 78 90 Mechanical Ventilator 35.00 07/18/21 13:00 82 07/18/21 13:00 37.1 80 29 92 Mechanical Ventilator 35.00 07/18/21 12:04 96 Mechanical Ventilator 35 07/18/21 12:00 37.0 81 29 94 Mechanical Ventilator 35.00 07/18/21 11:17 35 07/18/21 11:08 83 119/66 07/18/21 11:08 86 137/74 I & O 07/19/21 07:00 Intake Total 1865 ml Output Total 1475 ml Balance 390 ml Height & Weight Height: 5'8.00" Weight: 167lbs. 0.0oz. 75.245093mo; 32.65 BMI Method:Estimated General Appearance: Chronically ill, Other (sedated and intubated) HEENT: Other (ET tube in place) Neck: Normal Inspection Respiratory: Decreased Breath Sounds Cardiovascular: Regular Rate, Rhythm, No Gallop, No Murmur Capillary Refill: Less Than 3 Seconds Gastrointestinal: distended Extremity: Pedal Edema (minimal bilaterally) Neurologic/Psychiatric: Other (pt sedated and intubated) Skin: Warm/Dry Other comments PE PER ATTENDING Results Lab Laboratory Tests 07/18/21 05:05 07/19/21 04:00 Meds REVIEWED Radiology [facility] [place], [place] NAME: YASMEEN [facility]O [facility] REC#: [id number] PT STATUS: ADM IN : 1980 PHYSICIAN: RENNY JEAN-BAPTISTE DO ADMIT DATE: 07/15/21/ICU Signed Date of Exam:07/19/21 CHEST 1 VIEW, AP/PA ONLY INDICATION: Respiratory failure Single AP view of the chest is obtained with comparison made to study of one day earlier. Extensive bilateral nodular airspace disease has a stable overall appearance. No pneumothorax is identified. Endotracheal tube is in place with tip just below the thoracic inlet. Nasogastric tube passes below the diaphragm. IMPRESSION: Extensive nodular airspace disease is again demonstrated throughout both lungs without significant adverse change. This may be infectious, inflammatory or neoplastic in nature. Dictated by: Dictated on workstation # [id number] Dict: 07/19/2130 Trans: 07/19/2157 [facility] [id number] Interpreted by: RANCHO CHOWDHURY MD Electronically signed by: RANCHO CHOWDHURY MD 07/19/21 0657 Assessment/Plan Assessment/Plan 1. MRSA septicemia secondary to drug abuse 2. Acute hypoxic respiratory failure secondary to septic emboli and septic shock which is slightly better. 3. Metabolic encephalopathy about the same 4. Multiple septic emboli in the abdomen and myositis due to MRSA sepsis. 5. So far the echocardiogram did not show any evidence of echo vegetations. 6. CT of the brain with and without contrast negative for any cerebral abscess. 7. History of longstanding methamphetamine abuse and noncompliance with the medical advice. Recommendations 1. Continue mechanical ventilatory support and advised the RN to give a sedation vacation and to see the underlying neuro status. 2. Continue IV antibiotics and will do vanco peak and trough tomorrow 3. We will repeat blood cultures tomorrow. 4. Surgical consultation has been appreciated 5. Continue anticoagulation. 6. Ulcer prophylaxis. 7. Video visit made and discussed with the [employer] OPERATOR. 8. Prognosis is poor. Critical Care: Ventilator Management Time spent with patient (mins): 35 CECILIA TUBBS MD Jul 19, 2021 11:06
[2021-07-19 13:58] LABS: ABG BASE EXCESS -9.5 MMOL/L (-2.5-2.5); ABG OXYGEN SATURATION 99 % (94-100); ABG PCO2 35 MMHG (35-45); ABG PO2 272 MMHG (79-93); ABG TCO2 16.9 MMOL/L (21.0-31.0)
[2021-07-19 14:02] LABS: ABG PH 7.28 (7.37-7.43)
[2021-07-19 14:03] LABS: ALLENS TEST ART LINE; INSPIRED O2 35%; PATIENT TEMP 37.7; VENTILATOR YES
[2021-07-19 14:27] VITALS: BP 117/63
[2021-07-19] MEDS: SODIUM BICARBONATE 8.4% VIAL 100 MEQ in 1/2 NS IV SOLUTION 1,000 ML IV SCH (15:35)
[2021-07-19] MEDS: APAP 325 MG/10.15 ML LIQ (TYLENOL) UDC PO PRN (17:03)
[2021-07-19] MEDS: DexMEDEtomidine 250 ML DRIP 250 ML IV SCH (18:05)
[2021-07-19] MEDS: fentaNYL DRIP PRE-MIX 250 ML IV SCH (18:06)
[2021-07-20] MEDS: PIPERACILLIN/TAZOBACTAM (BULK) 4.5 GM in NS (IVPB) 100 ML IV SCH ×4 (00:40→23:24)
[2021-07-20] MEDS: RT-ALBUTEROL SULF 2.5 MG/3 ML PRE-MIX VIAL INH SCH ×4 (02:38→14:16)
[2021-07-20] MEDS: NS IV 1000 ML 1,000 ML IV SCH ×3 (02:40→23:00)
[2021-07-20] MEDS: PROPOFOL DRIP (ICU) 100 ML IV SCH ×4 (03:02→21:38)
[2021-07-20] MEDS: HEParin 1000 UNIT/ML (10ML VIAL) FOR BOLUS IV SCH ×4 (03:02→21:22)
[2021-07-20] MEDS: fentaNYL DRIP PRE-MIX 250 ML IV SCH ×3 (03:29→19:26)
[2021-07-20] MEDS: SODIUM BICARBONATE 8.4% VIAL 100 MEQ in 1/2 NS IV SOLUTION 1,000 ML IV SCH (05:56)
[2021-07-20 05:59] LABS: BASOPHILS % (AUTO) 0 % (0-10); EOSINOPHILS # (AUTO) 0.1 10^3/uL (0.0-0.3); EOSINOPHILS % (AUTO) 0 % (0-10)
[2021-07-20 06:01] LABS: HEMATOCRIT 27 % (35-52); HEMOGLOBIN 8.6 g/dL (11.5-16.0); LYMPHOCYTES # (AUTO) 1.1 10^3/uL (1.0-4.0); LYMPHOCYTES % (AUTO) 6 % (12-44); MEAN CORPUSCULAR HEMOGLOBIN 29 pg (25-34); MEAN CORPUSCULAR HGB CONC 32 g/dL (32-36); MEAN CORPUSCULAR VOLUME 91 fL (80-99); MEAN PLATELET VOLUME 13.1 fL (9.0-12.2); MONOCYTES # (AUTO) 0.2 10^3/uL (0.0-1.0); MONOCYTES % (AUTO) 1 % (0-12); NEUTROPHILS # (AUTO) 16.6 10^3/uL (1.8-7.8); NEUTROPHILS % (AUTO) 88 % (42-75); PLATELET COUNT 75 10^3/uL (130-400); WHITE BLOOD COUNT 18.8 10^3/uL (4.3-11.0)
[2021-07-20] MEDS: VANCOMYCIN 1500 MG/NS 500 ML IVPB IV SCH ×2 (06:04)
[2021-07-20] MEDS: NOREPINEPHRINE 8 MG/250 ML 250 ML IV SCH ×4 (06:07→22:17)
[2021-07-20 06:11] LABS: INR 1.1 (0.8-1.4); PROTHROMBIN TIME PATIENT 14.8 SEC (12.2-14.7)
[2021-07-20 06:14] LABS: ABG BASE EXCESS -7.7 MMOL/L (-2.5-2.5); ABG OXYGEN SATURATION 98 % (94-100); ABG PCO2 33 MMHG (35-45); ABG PO2 116 MMHG (79-93); ABG TCO2 18.1 MMOL/L (21.0-31.0)
[2021-07-20 06:17] LABS: ABG PH 7.33 (7.37-7.43); ALLENS TEST ART LINE; INSPIRED O2 40%; PATIENT TEMP 36.6; VENTILATOR YES
[2021-07-20 06:23] LABS: ALBUMIN 1.7 GM/DL (3.2-4.5); POTASSIUM 4.2 MMOL/L (3.6-5.0)
--- NOTE | 2021-07-20 06:24 | Diagnostic Imaging Report ---
INDICATION: Respiratory failure. COMPARISON: 11/17/2020 FINDINGS: Single frontal radiographic view of the chest was obtained and again demonstrates diffuse scattered patchy and confluent infiltrates throughout both lungs. There does appear to be interval progression of airspace disease, particularly within the right upper lung. Small effusions may be obscured. There is no pneumothorax. Cardiac silhouette is also heavily obscured, but appears stable. Indwelling endotracheal tube is also heavily obscured, but appears to terminate at the level of clavicular heads. Gastric tube tip terminates in the left upper abdominal quadrant of the abdomen. IMPRESSION: 1. Redemonstration advanced diffuse bilateral airspace opacities suspicious for infiltrate. Again, there does appear to be interval progression since previous exam. Dictated by: Dictated on workstation # [id number]
[2021-07-20 06:25] LABS: TOTAL PROTEIN 5.1 GM/DL (6.4-8.2)
[2021-07-20 06:27] LABS: BILIRUBIN,TOTAL 1.2 MG/DL (0.1-1.0)
[2021-07-20 06:28] LABS: PHOSPHORUS 3.1 MG/DL (2.3-4.7)
[2021-07-20 06:29] LABS: CREATININE SERUM 0.64 MG/DL (0.60-1.30)
[2021-07-20 06:31] LABS: MAGNESIUM 2.8 MG/DL (1.6-2.4)
[2021-07-20 06:33] LABS: VANCOMYCIN,TROUGH 25.3 UG/ML (10.0-20.0)
[2021-07-20] MEDS: KCL 20 MEQ TAB (K-DUR) PO SCH (06:51)
[2021-07-20] MEDS: MAGNESIUM 1 GM/100 ML IVPB 100 ML IV SCH (06:51)
[2021-07-20] MEDS: POTASSIUM CL 10MEQ/50ML IVPB 50 ML IV SCH (06:51)
--- NOTE | 2021-07-20 06:53 | Occ Therapy Progress Note ---
Therapy Progress Note Pt currently intubated. OT to continue to monitor pt's status and will initiate treatment with pt is medically stable and able to actively participate in skilled therapy. ERWIN NAGY Jul 20, 2021 06:53
[2021-07-20 07:20] VITALS: BP 108/63
--- NOTE | 2021-07-20 07:38 | Physical Therapy Progress Note ---
Therapy Progress Note Patient currently sedated and intubated. PT will continue to follow patient status and initiate treatment when patient is medically stable and able to actively participate with skilled therapy. NILSA BROWN PT Jul 20, 2021 07:38
[2021-07-20] MEDS: PANTOPRAZOLE 40 MG (PROTONIX) VIAL IV SCH ×2 (08:01→21:20)
[2021-07-20] MEDS: LACRI-LUBE OPTHALMIC OINT 3.5 GM TUBE OU SCH ×2 (09:29→21:20)
[2021-07-20] MEDS: HEParin DRIP 25000 UNIT/500ML 500 ML IV SCH ×2 (10:00→23:28)
[2021-07-20 11:02] VITALS: BP 124/69
--- NOTE | 2021-07-20 11:02 | Diagnostic Imaging Report ---
ABDOMEN/KUB 1VIEW INDICATION: Abdominal distention. COMPARISON: CT abdomen and pelvis from 07/16/2020. TECHNIQUE: AP view of the abdomen. FINDINGS: No dilated loops of small bowel or colon. The stomach is not distended with air. No features of free intraperitoneal air, though assessment is suboptimal on supine imaging. Basilar pulmonary opacities persist. IMPRESSION: Nonobstructive bowel gas pattern. Dictated by: Dictated on workstation # [id number]
[2021-07-20] MEDS: APAP 325 MG/10.15 ML LIQ (TYLENOL) UDC PO PRN (11:42)
[2021-07-20] MEDS: METOCLOPRAMIDE INJ 10 MG/2 ML (REGLAN) IVP SCH ×3 (11:42→23:19)
--- NOTE | 2021-07-20 11:42 | Tele-ICU Progress Note ---
Subjective Date Seen by a Provider: Jul 20, 2021 Time Seen by a Provider: 10:00 Sepsis Event Evaluation Height, Weight, BMI Height: 5'8.00" Weight: 167lbs. 0.0oz. 75.756673cs; 32.65 BMI Method:Estimated Focused Exam Time of Focused Exam: 08:15 Exam Exam Patient acknowledged, consented, and participated in this virtual visit which was conducted using real time audio/video Vital Signs Date Time Temp Pulse Resp B/P (MAP) Pulse Ox O2 Delivery O2 Flow Rate FiO2 07/20/21 11:09 Mechanical Ventilator 45.00 07/20/21 11:02 116 29 94 45 07/20/21 10:56 40 07/20/21 10:45 38 92 Mechanical Ventilator 40.00 07/20/21 10:30 87 25 96 Mechanical Ventilator 40.00 07/20/21 10:15 90 33 97 Mechanical Ventilator 40.00 07/20/21 10:00 07/20/21 09:45 90 34 96 Mechanical Ventilator 40.00 07/20/21 09:30 129 28 98 Mechanical Ventilator 40.00 07/20/21 09:15 35 87 Mechanical Ventilator 40.00 07/20/21 09:00 84 25 93 Mechanical Ventilator 40.00 07/20/21 08:15 85 45 97 Mechanical Ventilator 40.00 07/20/21 08:15 92 Mechanical Ventilator 40 07/20/21 08:00 84 36 96 Mechanical Ventilator 40.00 07/20/21 07:45 81 36 97 Mechanical Ventilator 40.00 07/20/21 07:30 81 22 93 Mechanical Ventilator 40.00 07/20/21 07:20 79 26 91 40 07/20/21 07:15 79 33 97 Mechanical Ventilator 40.00 07/20/21 07:00 80 15 96 Mechanical Ventilator 40.00 07/20/21 07:00 82 07/20/21 06:47 40 07/20/21 06:00 36.7 82 34 93 Mechanical Ventilator 40.00 07/20/21 05:00 36.9 79 22 91 Mechanical Ventilator 40.00 07/20/21 04:00 94 Mechanical Ventilator 40 07/20/21 04:00 36.7 76 27 98 Mechanical Ventilator 40.00 07/20/21 03:00 36.9 80 20 97 Mechanical Ventilator 40.00 07/20/21 02:56 40 07/20/21 02:38 76 28 97 40 07/20/21 02:00 36.7 77 20 98 Mechanical Ventilator 40.00 07/20/21 01:00 78 07/20/21 01:00 37.0 78 20 96 Mechanical Ventilator 40.00 07/20/21 00:00 91 Mechanical Ventilator 40 07/20/21 00:00 37.1 82 20 95 Mechanical Ventilator 40.00 07/19/21 23:00 37.2 85 20 97 Mechanical Ventilator 40.00 07/19/21 22:33 40 07/19/21 22:21 82 31 96 40 07/19/21 22:00 37.2 78 20 97 Mechanical Ventilator 40.00 07/19/21 21:00 37.4 86 20 96 Mechanical Ventilator 40.00 07/19/21 20:50 80 81/45 07/19/21 20:00 37.4 87 20 95 Mechanical Ventilator 40.00 07/19/21 20:00 91 Mechanical Ventilator 40 07/19/21 19:54 81 131/75 07/19/21 19:00 90 07/19/21 19:00 37.5 90 20 94 Mechanical Ventilator 40.00 07/19/21 18:45 91 28 95 Mechanical Ventilator 40.00 07/19/21 18:42 40 07/19/21 18:41 90 36 94 40 07/19/21 18:30 90 16 95 Mechanical Ventilator 40.00 07/19/21 18:15 92 48 95 Mechanical Ventilator 40.00 07/19/21 18:05 100 117/63 07/19/21 18:05 100 117/63 07/19/21 18:04 100 117/63 07/19/21 18:00 92 39 95 Mechanical Ventilator 40.00 07/19/21 17:46 37.8 07/19/21 17:45 93 24 95 Mechanical Ventilator 40.00 07/19/21 17:30 94 96 Mechanical Ventilator 40.00 07/19/21 17:17 Mechanical Ventilator 40.00 07/19/21 17:15 98 92 Mechanical Ventilator 07/19/21 17:03 37.8 07/19/21 17:00 37.8 96 37 89 07/19/21 16:45 37.8 99 37 93 07/19/21 16:30 37.8 99 37 92 07/19/21 16:15 37.8 103 26 91 12/5/21 16:00 37.7 99 28 91 07/19/21 15:45 91 Mechanical Ventilator 35 07/19/21 15:45 37.7 101 15 94 Mechanical Ventilator 35.00 07/19/21 15:30 37.8 98 28 93 Mechanical Ventilator 35.00 07/19/21 15:15 37.7 92 25 88 Mechanical Ventilator 35.00 07/19/21 15:00 37.7 102 25 87 Mechanical Ventilator 35.00 07/19/21 14:56 30 07/19/21 14:45 37.7 102 24 87 Mechanical Ventilator 35.00 07/19/21 14:30 37.7 101 25 84 Mechanical Ventilator 35.00 07/19/21 14:27 100 33 89 30 07/19/21 14:15 37.7 91 28 89 Mechanical Ventilator 35.00 07/19/21 14:00 37.7 91 25 92 Mechanical Ventilator 35.00 07/19/21 13:45 37.6 96 20 93 Mechanical Ventilator 35.00 07/19/21 13:30 37.6 94 21 91 Mechanical Ventilator 35.00 07/19/21 13:15 37.6 96 26 90 Mechanical Ventilator 35.00 07/19/21 13:00 104 07/19/21 13:00 37.6 94 26 91 Mechanical Ventilator 35.00 07/19/21 12:45 37.5 89 28 95 Mechanical Ventilator 35.00 07/19/21 12:30 37.5 89 27 96 Mechanical Ventilator 35.00 07/19/21 12:15 37.5 88 25 97 Mechanical Ventilator 35.00 07/19/21 12:00 37.4 87 36 95 Mechanical Ventilator 35.00 07/19/21 11:45 37.5 87 28 96 Mechanical Ventilator 30.00 I & O 07/20/21 07:00 Intake Total 3695 ml Output Total 1925 ml Balance 1770 ml Height & Weight Height: 5'8.00" Weight: 167lbs. 0.0oz. 75.372826sw; 32.65 BMI Method:Estimated General Appearance: Anxious, Mild Distress HEENT: PERRL/EOMI, Pharynx Normal, Other (Vomit noted on face) Neck: Non Tender, Supple Respiratory: Lungs Clear, Normal Breath Sounds Cardiovascular: No Murmur, Tachycardia Capillary Refill: Less Than 3 Seconds Gastrointestinal: distended Extremity: Normal Range of Motion, Non Tender, No Calf Tenderness Neurologic/Psychiatric: Alert, Disoriented (Place and time), Other (Anxious and repeating) Skin: Warm/Dry Results Lab Laboratory Tests 07/19/21 04:00 07/20/21 05:45 Assessment/Plan Assessment/Plan (Tele-ICU Physician , Progress Note ) Available chart/ vitals / labs / Images reviewed Video assessment done using teleICU camera, rest of exam as per RN Discussed with RN , EXAM PER RN Events overnight : Afebrile FiO2 - 45 I/O = even Drips: Pressors: levo , bicarb Sedation gtt: precedex and fentanyl ( RASS - 3 ) VENT SETTINGS and ABG reviewed Not candidate for SBT today REVIEWED Cardiovascular Stability / Sedation Score / FI02/PEEP / ABG / CXR Consultants: maxine Hospital course: (07/15) 40 y/o female admitted in ED with Altered mental status. Positive meth. Multilobar infiltrate/ Septic Shock/UTI/ Methamphetamine abuse. INTUBATED (07/16) CT ABD: right pelvic iliopsoas myositis, multiple IM abscesses, internal iliac venous thrombus--likely infected clot possible source of septic emboli, left pleural effusion, possible ileus or SBO dilatation (07/18) Attempted to place in higher level of care: contacted over 72 facilities no beds available. (07/19) Cardiovascular Surgery consulting from [facility] . No surgery indicated. 07/20 - AC 400- 20 +5 45% A/P MRSA septicemia secondary to drug abuse -ECHO - 07/16 - no any evidence of echo vegetations. - ABX to cont - repeated cx 07/20 - pending - Acute hypoxic respiratory failure secondary to septic emboli and septic shock - INTUBATED 07/15, - AC 400- 20 +5 45% Metabolic encephalopathy about the same - CT of the brain with and without contrast negative for any cerebral abscess. - decrease sedation Multiple septic emboli in the abdomen , lung , and myositis due to MRSA sepsis - cont ABX internal iliac venous thrombus - heparin gtt Metabolic acidosis - on bicarnb gtt - follow Thrombocytopenia ( on heparin ) - ? consumption vs DIC vs HIPA - check labs and follow Nutritions - recheck KUB - might need TPN Hypernatremia - change fluid to D5w History of longstanding methamphetamine abuse and noncompliance with the medical advice. Lines : LEFT IJ (Central Line Necessity Reviewed) Garcia: + OG: + Nutrition: Analgesia: Anxiety/ delirium VTE Prophylaxis: hep gtt Stress Ulcer Prophylaxis: ppi Glycemic Control: Plans in collaboation with bedside consultants and IM MDs. Discussed with RN to reach out if any questions or concerns A total of 40 minutes of critical care time was devoted to this patient today, required to treat and/or prevent further deterioration of critical care condition ( as above) . MARYCARMEN HENRY MD Jul 20, 2021 11:42
[2021-07-20] MEDS ORDERED: KETOROLAC 15 MG/ML VIAL IVP NR (12:43)
[2021-07-20] MEDS: SODIUM BICARBONATE 8.4% VIAL 100 MEQ in D5W 1000 ML IV SOLUTION 1,000 ML IV SCH (14:05)
[2021-07-20 14:17] VITALS: BP 98/56
[2021-07-20 15:44] VITALS: BP 114/101
[2021-07-20] MEDS ORDERED: RT-ALBUTEROL/IPRATROPIUM 3 ML (DUONEB) VIAL INH PRN (16:00)
--- NOTE | 2021-07-20 17:02 | Progress Note ---
Subjective Date Seen by a Provider: Jul 20, 2021 Time Seen by a Provider: 16:00 Subjective/Events-last exam pt remains critically ill. distal perfusion slowly improving. has anasarca and pulmonary edema/infiltrate. Focused Exam Time of Focused Exam: 08:15 Objective Exam Vital Signs Date Time Temp Pulse Resp B/P (MAP) Pulse Ox O2 Delivery O2 Flow Rate FiO2 07/20/21 16:41 109 105/59 07/20/21 16:30 110 24 93 Mechanical Ventilator 70.00 07/20/21 16:15 110 25 93 Mechanical Ventilator 70.00 07/20/21 16:03 37.6 07/20/21 16:00 90 Mechanical Ventilator 60 07/20/21 16:00 38 93 Mechanical Ventilator 70.00 07/20/21 15:45 29 92 Mechanical Ventilator 70.00 07/20/21 15:44 37.6 147 97 21 07/20/21 15:37 112 114/63 07/20/21 15:30 28 92 Mechanical Ventilator 70.00 07/20/21 15:15 105 39 93 Mechanical Ventilator 70.00 07/20/21 15:00 107 43 94 Mechanical Ventilator 70.00 07/20/21 14:55 60 07/20/21 14:45 106 84 93 Mechanical Ventilator 70.00 07/20/21 14:30 105 38 93 Mechanical Ventilator 70.00 07/20/21 14:17 101 23 95 70 07/20/21 14:15 101 20 96 Mechanical Ventilator 70.00 07/20/21 14:00 101 20 95 Mechanical Ventilator 70.00 07/20/21 13:45 100 21 96 Mechanical Ventilator 70.00 07/20/21 13:36 38.2 07/20/21 13:30 98 21 97 Mechanical Ventilator 70.00 07/20/21 13:22 38.5 07/20/21 13:15 98 18 97 Mechanical Ventilator 70.00 07/20/21 13:00 100 25 97 Mechanical Ventilator 70.00 07/20/21 12:54 38.7 07/20/21 12:50 123 07/20/21 12:45 90 44 94 Mechanical Ventilator 70.00 07/20/21 12:30 80 96 Mechanical Ventilator 70.00 07/20/21 12:15 122 39 95 Mechanical Ventilator 70.00 07/20/21 12:15 38.7 07/20/21 12:07 87 70 07/20/21 12:05 92 Mechanical Ventilator 70 07/20/21 12:00 125 33 90 Mechanical Ventilator 70.00 07/20/21 11:51 116 106/60 07/20/21 11:45 123 41 90 Mechanical Ventilator 70.00 07/20/21 11:42 38.2 07/20/21 11:30 123 37 92 Mechanical Ventilator 70.00 07/20/21 11:15 121 39 93 Mechanical Ventilator 70.00 07/20/21 11:09 Mechanical Ventilator 45.00 07/20/21 11:02 116 29 94 45 07/20/21 11:00 111 15 92 07/20/21 10:56 40 07/20/21 10:45 38 92 Mechanical Ventilator 40.00 07/20/21 10:30 87 25 96 Mechanical Ventilator 40.00 07/20/21 10:15 90 33 97 Mechanical Ventilator 40.00 07/20/21 10:00 07/20/21 09:45 90 34 96 Mechanical Ventilator 40.00 07/20/21 09:30 129 28 98 Mechanical Ventilator 40.00 07/20/21 09:15 35 87 Mechanical Ventilator 40.00 07/20/21 09:00 84 25 93 Mechanical Ventilator 40.00 07/20/21 08:15 85 45 97 Mechanical Ventilator 40.00 07/20/21 08:15 92 Mechanical Ventilator 40 07/20/21 08:00 84 36 96 Mechanical Ventilator 40.00 07/20/21 07:45 81 36 97 Mechanical Ventilator 40.00 07/20/21 07:30 81 22 93 Mechanical Ventilator 40.00 07/20/21 07:20 79 26 91 40 07/20/21 07:15 79 33 97 Mechanical Ventilator 40.00 07/20/21 07:00 80 15 96 Mechanical Ventilator 40.00 07/20/21 07:00 82 07/20/21 06:47 40 07/20/21 06:00 36.7 82 34 93 Mechanical Ventilator 40.00 07/20/21 05:00 36.9 79 22 91 Mechanical Ventilator 40.00 07/20/21 04:00 94 Mechanical Ventilator 40 07/20/21 04:00 36.7 76 27 98 Mechanical Ventilator 40.00 07/20/21 03:00 36.9 80 20 97 Mechanical Ventilator 40.00 07/20/21 02:56 40 07/20/21 02:38 76 28 97 40 07/20/21 02:00 36.7 77 20 98 Mechanical Ventilator 40.00 07/20/21 01:00 78 07/20/21 01:00 37.0 78 20 96 Mechanical Ventilator 40.00 07/20/21 00:00 91 Mechanical Ventilator 40 07/20/21 00:00 37.1 82 20 95 Mechanical Ventilator 40.00 07/19/21 23:00 37.2 85 20 97 Mechanical Ventilator 40.00 07/19/21 22:33 40 07/19/21 22:21 82 31 96 40 07/19/21 22:00 37.2 78 20 97 Mechanical Ventilator 40.00 07/19/21 21:00 37.4 86 20 96 Mechanical Ventilator 40.00 07/19/21 20:50 80 81/45 07/19/21 20:00 37.4 87 20 95 Mechanical Ventilator 40.00 07/19/21 20:00 91 Mechanical Ventilator 40 07/19/21 19:54 81 131/75 07/19/21 19:00 90 07/19/21 19:00 37.5 90 20 94 Mechanical Ventilator 40.00 07/19/21 18:45 91 28 95 Mechanical Ventilator 40.00 07/19/21 18:42 40 07/19/21 18:41 90 36 94 40 07/19/21 18:30 90 16 95 Mechanical Ventilator 40.00 07/19/21 18:15 92 48 95 Mechanical Ventilator 40.00 07/19/21 18:05 100 117/63 07/19/21 18:05 100 117/63 07/19/21 18:04 100 117/63 07/19/21 18:00 92 39 95 Mechanical Ventilator 40.00 07/19/21 17:46 37.8 07/19/21 17:45 93 24 95 Mechanical Ventilator 40.00 07/19/21 17:30 94 96 Mechanical Ventilator 40.00 07/19/21 17:17 Mechanical Ventilator 40.00 07/19/21 17:15 98 92 Mechanical Ventilator 07/19/21 17:03 37.8 07/19/21 17:00 37.8 96 37 89 I & O 07/20/21 07:00 Intake Total 3695 ml Output Total 1925 ml Balance 1770 ml Capillary Refill : Less Than 3 Seconds General Appearance: No Apparent Distress HEENT: PERRL/EOMI Neck: Full Range of Motion Respiratory: Decreased Breath Sounds, Rhonci Cardiovascular: Regular Rate, Rhythm Gastrointestinal: normal bowel sounds, distended Extremity: Normal Capillary Refill Neurologic/Psychiatric: Alert, Oriented x3, Other (vent/sedated) Skin: Normal Color Lymphatic: No Adenopathy Results Lab Laboratory Tests 07/19/21 17:15: Activated Partial Thromboplast Time 45H 07/19/21 17:33: Glucometer 129H 07/20/21 00:36: Glucometer 137H 07/20/21 00:37: Activated Partial Thromboplast Time 52H 07/20/21 05:45: White Blood Count 18.8H, Red Blood Count 2.97L, Hemoglobin 8.6L, Hematocrit 27L, Mean Corpuscular Volume 91, Mean Corpuscular Hemoglobin 29, Mean Corpuscular Hemoglobin Concent 32, Red Cell Distribution Width 16.3H, Platelet Count 75L, Mean Platelet Volume 13.1H, Immature Granulocyte % (Auto) 5, Neutrophils (%) (Auto) 88H, Lymphocytes (%) (Auto) 6L, Monocytes (%) (Auto) 1, Eosinophils (%) (Auto) 0, Basophils (%) (Auto) 0, Neutrophils # (Auto) 16.6H, Lymphocytes # (Auto) 1.1, Monocytes # (Auto) 0.2, Eosinophils # (Auto) 0.1, Basophils # (Auto) 0.0, Immature Granulocyte # (Auto) 0.9H, Percent Immature Platelet Fraction 12.9H, Prothrombin Time 14.8H, INR Comment 1.1, Activated Partial Thromboplast Time 62H, Blood Gas Puncture Site L ART, Blood Gas Patient Temperature 36.6, Arterial Blood pH 7.33*L, Arterial Blood Partial Pressure CO2 33L, Arterial Blood Partial Pressure O2 116H, Arterial Blood HCO3 17*L, Arterial Blood Total CO2 18.1L, Arterial Blood Oxygen Saturation 98, Arterial Blood Base Excess -7.7L , Luis Test ART LINE, Blood Gas Ventilator Setting YES, Blood Gas Inspired Oxygen 40%, Sodium Level 147H, Potassium Level 4.2, Chloride Level 119H, Carbon Dioxide Level 16L, Anion Gap 12, Blood Urea Nitrogen 35H, Creatinine 0.64, Estimat Glomerular Filtration Rate 104, BUN/Creatinine Ratio 55, Glucose Level 151H, Calcium Level 7.0L, Corrected Calcium 8.8, Phosphorus Level 3.1, Magnesium Level 2.8H, Total Bilirubin 1.2H, Aspartate Amino Transf (AST/SGOT) 48H, Alanine Aminotransferase (ALT/SGPT) 30, Alkaline Phosphatase 106, Total Protein 5.1L, Albumin 1.7L, Triglycerides Level 330H, Vancomycin Level Trough 25.3*H 07/20/21 12:50: Activated Partial Thromboplast Time 44H, Vancomycin Level Peak 24.6 Microbiology 07/20/21 Blood Culture - Preliminary, Resulted 07/15/21 Gram Stain - Final, Complete 07/15/21 Sputum Culture - Final, Complete Staphylococcus aureus Haemophilus influenza 07/15/21 Urine Culture - Final, Complete Staphylococcus aureus Assessment/Plan Assessment/Plan Assess & Plan/Chief Complaint venous/arterial septic thrombosis. on heparin gtt. worsening pulm status likely due to pulmonary infiltrate/edema. brochoscopy not likely to help. will cont to monitor serial cxr. MELINDA ARAGON MD Jul 20, 2021 17:02
[2021-07-20 18:06] VITALS: BP 100/54
[2021-07-20] MEDS: RT-ALBUTEROL/IPRATROPIUM 3 ML (DUONEB) VIAL INH SCH ×2 (18:06→21:40)
--- NOTE | 2021-07-20 21:21 | Progress Note ---
Subjective Subjective/Events-last exam Patient intubated and sedated Review of Systems Patient intubated and sedated Focused Exam Time of Focused Exam: 08:15 Objective Exam Last Set of Vital Signs Vital Signs Date Time Temp Pulse Resp B/P (MAP) Pulse Ox O2 Delivery O2 Flow Rate FiO2 07/20/21 20:33 Mechanical Ventilator 70.00 07/20/21 18:56 60 07/20/21 18:06 109 20 92 07/20/21 18:00 07/20/21 16:03 37.6 Capillary Refill : Less Than 3 Seconds I&O Intake and Output 07/20/21 00:00 Intake Total 1875 ml Output Total 1700 ml Balance 175 ml Intake Oral 0 ml IV Total 1735 ml Other 140 ml Output Urine Total 1300 ml Gastric Drainage Total 400 ml General: Other (Intubated and sedated) Lungs: Other (bilateral crackles, increased work of breathing on vent) Heart: Regular Rate, No Murmurs Abdomen: Normal Bowel Sounds, Soft Extremities: Other (skin breakdown on feet and hands) Results/Procedures Lab Laboratory Tests 07/20/21 00:36: Glucometer 137H 07/20/21 00:37: Activated Partial Thromboplast Time 52H 07/20/21 05:45: Activated Partial Thromboplast Time 62H, White Blood Count 18.8H, Red Blood Cou nt 2.97L, Hemoglobin 8.6L, Hematocrit 27L, Mean Corpuscular Volume 91, Mean Corpuscular Hemoglobin 29, Mean Corpuscular Hemoglobin Concent 32, Red Cell Distribution Width 16.3H, Platelet Count 75L, Mean Platelet Volume 13.1H, Immature Granulocyte % (Auto) 5, Neutrophils (%) (Auto) 88H, Lymphocytes (%) (Auto) 6L, Monocytes (%) (Auto) 1, Eosinophils (%) (Auto) 0, Basophils (%) (Auto) 0, Neutrophils # (Auto) 16.6H, Lymphocytes # (Auto) 1.1, Monocytes # (Auto) 0.2, Eosinophils # (Auto) 0.1, Basophils # (Auto) 0.0, Immature Granulocyte # (Auto) 0.9H, Percent Immature Platelet Fraction 12.9H, Prothrombin Time 14.8H, INR Comment 1.1, Blood Gas Puncture Site L ART, Blood Gas Patient Temperature 36.6, Arterial Blood pH 7.33*L, Arterial Blood Partial Pressure CO2 33L, Arterial Blood Partial Pressure O2 116H, Arterial Blood HCO3 17*L, Arterial Blood Total CO2 18.1L, Arterial Blood Oxygen Saturation 98, Arterial Blood Base Excess -7.7L, Luis Test ART LINE, Blood Gas Ventilator Setting YES, Blood Gas Inspired Oxygen 40%, Sodium Level 147H, Potassium Level 4.2, Chloride Level 119H , Carbon Dioxide Level 16L, Anion Gap 12, Blood Urea Nitrogen 35H, Creatinine 0.64, Estimat Glomerular Filtration Rate 104, BUN/Creatinine Ratio 55, Glucose Level 151H, Calcium Level 7.0L, Corrected Calcium 8.8, Phosphorus Level 3.1, Magnesium Level 2.8H, Total Bilirubin 1.2H, Aspartate Amino Transf (AST/SGOT) 48H, Alanine Aminotransferase (ALT/SGPT) 30, Alkaline Phosphatase 106, Total Protein 5.1L, Albumin 1.7L, Triglycerides Level 330H, Vancomycin Level Trough 25.3*H 07/20/21 12:50: Activated Partial Thromboplast Time 44H, Vancomycin Level Peak 24.6 07/20/21 17:52: Glucometer 125H 07/20/21 20:25: Activated Partial Thromboplast Time 63H Microbiology 07/20/21 Blood Culture - Preliminary, Resulted 07/15/21 Gram Stain - Final, Complete 07/15/21 Sputum Culture - Final, Complete Staphylococcus aureus Haemophilus influenza 07/15/21 Urine Culture - Final, Complete Staphylococcus aureus Assessment/Plan Assessment/Plan (1) Septic shock Status: Acute Assessment & Plan: 07/20: Intubated and Sedated, requiring pressors for blood pressure support, continue broad spectrum antibiotics to cover staph which is growing out of urine and blood (2) Multilobar lung infiltrate Status: Acute Assessment & Plan: 07/20: Intubated and sedated, eICU managing vent settings (3) Acute respiratory failure with hypoxia Status: Acute (4) Septic embolism Status: Acute (5) Normocytic anemia Status: Acute (6) Rhabdomyolysis Status: Acute Qualifiers: Qualified Codes: M62.82 - Rhabdomyolysis (7) Methamphetamine abuse Status: Acute (8) DVT prophylaxis Status: Acute Assessment & Plan: 07/20: Heparin drip (9) In critical condition Status: Acute Assessment & Plan: 07/20: Spoke with mother regarding patient's well being. Mother did not seem to understand the degree of illness facing her daughter. Updated her on the critical nature of what is going on. She would like for her to remain a full code. Spent 40 mins managing critical illness JUSTA YEAGER MD Jul 20, 2021 21:21
[2021-07-20 21:40] VITALS: BP 111/54
[2021-07-21] VITALS (8 sets, daily range): BP systolic 92–111; BP diastolic 48–64
[2021-07-21] MEDS: NOREPINEPHRINE 8 MG/250 ML 250 ML IV SCH ×11 (01:10→23:21)
[2021-07-21] MEDS: RT-ALBUTEROL/IPRATROPIUM 3 ML (DUONEB) VIAL INH SCH ×6 (02:18→22:27)
[2021-07-21] MEDS: SODIUM BICARBONATE 8.4% VIAL 100 MEQ in D5W 1000 ML IV SOLUTION 1,000 ML IV SCH ×2 (02:42→18:48)
[2021-07-21] MEDS: APAP 325 MG/10.15 ML LIQ (TYLENOL) UDC PO PRN ×2 (02:42→08:58)
[2021-07-21] MEDS: HEParin 1000 UNIT/ML (10ML VIAL) FOR BOLUS IV SCH ×2 (02:43→07:56)
[2021-07-21] MEDS: PROPOFOL DRIP (ICU) 100 ML IV SCH (02:43)
[2021-07-21 04:00] LABS: ABG BASE EXCESS -9.1 MMOL/L (-2.5-2.5); ABG OXYGEN SATURATION 96 % (94-100); ABG PO2 100 MMHG (79-93); ABG TCO2 22.7 MMOL/L (21.0-31.0)
[2021-07-21 04:02] LABS: ALLENS TEST ARTLINE; INSPIRED O2 100%; PATIENT TEMP 37.3; VENTILATOR YES
[2021-07-21 04:03] LABS: ABG PCO2 81 MMHG (35-45); ABG PH 7.03 (7.37-7.43)
[2021-07-21 04:07] LABS: BASOPHILS % (AUTO) 0 % (0-10); EOSINOPHILS # (AUTO) 0.1 10^3/uL (0.0-0.3); EOSINOPHILS % (AUTO) 1 % (0-10); HEMATOCRIT 28 % (35-52); HEMOGLOBIN 8.3 g/dL (11.5-16.0); LYMPHOCYTES # (AUTO) 0.8 10^3/uL (1.0-4.0); LYMPHOCYTES % (AUTO) 4 % (12-44); MEAN CORPUSCULAR HEMOGLOBIN 29 pg (25-34); MEAN CORPUSCULAR HGB CONC 30 g/dL (32-36); MEAN CORPUSCULAR VOLUME 98 fL (80-99); MEAN PLATELET VOLUME 13.3 fL (9.0-12.2); MONOCYTES # (AUTO) 0.5 10^3/uL (0.0-1.0); MONOCYTES % (AUTO) 2 % (0-12); NEUTROPHILS # (AUTO) 17.6 10^3/uL (1.8-7.8); NEUTROPHILS % (AUTO) 90 % (42-75); PLATELET COUNT 41 10^3/uL (130-400); WHITE BLOOD COUNT 19.5 10^3/uL (4.3-11.0)
[2021-07-21 04:13] LABS: ALBUMIN 1.6 GM/DL (3.2-4.5)
[2021-07-21 04:14] LABS: CALCIUM 6.4 MG/DL (8.5-10.1)
[2021-07-21 04:15] LABS: TOTAL PROTEIN 5.2 GM/DL (6.4-8.2)
[2021-07-21 04:17] LABS: BILIRUBIN,TOTAL 1.8 MG/DL (0.1-1.0)
[2021-07-21 04:18] LABS: PHOSPHORUS 5.3 MG/DL (2.3-4.7)
[2021-07-21 04:19] LABS: CREATININE SERUM 0.89 MG/DL (0.60-1.30)
[2021-07-21 04:21] LABS: MAGNESIUM 2.7 MG/DL (1.6-2.4)
[2021-07-21] MEDS: fentaNYL DRIP PRE-MIX 250 ML IV SCH ×3 (04:26→19:33)
[2021-07-21 04:28] LABS: VANCOMYCIN,TROUGH 17.1 UG/ML (10.0-20.0)
[2021-07-21] MEDS: POTASSIUM CL 10MEQ/50ML IVPB 50 ML IV SCH (04:31)
[2021-07-21] MEDS: MAGNESIUM 1 GM/100 ML IVPB 100 ML IV SCH (04:32)
[2021-07-21] MEDS: KCL 20 MEQ TAB (K-DUR) PO SCH (04:32)
[2021-07-21 04:55] LABS: FIBRIN DEGRADATION PRODUCTS 15.23 UG/ML (0.00-0.49); INR 1.2 (0.8-1.4); PROTHROMBIN TIME PATIENT 15.5 SEC (12.2-14.7)
[2021-07-21 05:13] LABS: ATYPICAL LYMPHOCYTES 1 %; BAND NEUTROPHILS 46 %; EOSINOPHILS % (MANUAL) 2 %; LYMPHOCYTES % (MANUAL) 7 %; METAMYELOCYTES % 5 %; MONOCYTES % (MANUAL) 3 %; NEUTROPHILS % (MANUAL) 36 %; NUCLEATED RED BLOOD CELLS 5
[2021-07-21 05:14] LABS: POLYCHROMASIA SLIGHT; TOXIC GRANULATION/VACUOLAZATIO 1+
[2021-07-21] MEDS: METOCLOPRAMIDE INJ 10 MG/2 ML (REGLAN) IVP SCH ×3 (06:02→18:48)
--- NOTE | 2021-07-21 06:52 | Occ Therapy Progress Note ---
Therapy Progress Note Pt currently intubated. OT to monitor pt's status and will initiate treatment when pt is medically stable and is able to actively participate in skilled therapy. ERWIN NAGY Jul 21, 2021 06:52
[2021-07-21 06:56] LABS: ABG BASE EXCESS -9.2 MMOL/L (-2.5-2.5); ABG OXYGEN SATURATION 94 % (94-100); ABG PO2 77 MMHG (79-93); ABG TCO2 22.3 MMOL/L (21.0-31.0)
[2021-07-21 07:00] LABS: ABG PH 7.04 (7.37-7.43)
[2021-07-21 07:01] LABS: ABG PCO2 78 MMHG (35-45); ALLENS TEST ART LINE; INSPIRED O2 75%; PATIENT TEMP 37.7; VENTILATOR YES
--- NOTE | 2021-07-21 07:28 | Physical Therapy Progress Note ---
Therapy Progress Note Patient currently sedated and intubated. PT will continue to follow patient status and initiate treatment when patient is medically stable and able to actively participate with skilled therapy. NILSA BROWN PT Jul 21, 2021 07:28
--- NOTE | 2021-07-21 08:17 | Tele-ICU Progress Note ---
Subjective Date Seen by a Provider: Jul 21, 2021 Time Seen by a Provider: 08:16 Sepsis Event Evaluation Height, Weight, BMI Height: 5'8.00" Weight: 167lbs. 0.0oz. [id number]; 32.65 BMI Method:Estimated Focused Exam Time of Focused Exam: 08:15 Exam Exam Patient acknowledged, consented, and participated in this virtual visit which was conducted using real time audio/video Vital Signs Date Time Temp Pulse Resp B/P (MAP) Pulse Ox O2 Delivery O2 Flow Rate FiO2 07/21/21 06:50 75 07/21/21 06:02 113 103/50 07/21/21 06:00 37.3 114 19 91 Mechanical Ventilator 75.00 07/21/21 05:07 75 07/21/21 05:00 Mechanical Ventilator 75.00 07/21/21 05:00 37.4 112 22 96 Mechanical Ventilator 75.00 07/21/21 04:26 116 108/53 07/21/21 04:19 117 20 93 70 07/21/21 04:00 37.4 117 27 90 Mechanical Ventilator 80.00 07/21/21 04:00 93 Mechanical Ventilator 80 07/21/21 03:12 37.5 07/21/21 03:00 37.2 112 95 Mechanical Ventilator 80.00 07/21/21 02:56 80 07/21/21 02:43 114 101/52 07/21/21 02:42 37.2 07/21/21 02:18 114 22 92 70 07/21/21 02:00 37.0 110 21 92 Mechanical Ventilator 80.00 07/21/21 01:10 107 103/53 07/21/21 01:00 36.9 107 19 92 Mechanical Ventilator 80.00 07/21/21 01:00 107 07/21/21 00:01 Mechanical Ventilator 80.00 07/21/21 00:00 36.7 108 93 Mechanical Ventilator 70.00 07/20/21 23:59 93 Mechanical Ventilator 80 07/20/21 23:27 98/48 07/20/21 23:00 36.6 102 23 93 Mechanical Ventilator 70.00 07/20/21 22:56 70 07/20/21 22:17 105 100/53 07/20/21 22:00 36.8 105 21 94 Mechanical Ventilator 70.00 07/20/21 21:40 105 21 92 70 07/20/21 21:38 104 110/57 07/20/21 21:00 36.9 104 18 93 Mechanical Ventilator 70.00 07/20/21 20:33 Mechanical Ventilator 70.00 07/20/21 20:00 37.1 107 20 91 Mechanical Ventilator 60.00 07/20/21 20:00 93 Mechanical Ventilator 70 07/20/21 19:00 109 07/20/21 19:00 37.2 109 17 91 Mechanical Ventilator 60.00 07/20/21 18:56 60 07/20/21 18:06 109 20 92 60 07/20/21 18:00 111 20 92 60.00 07/20/21 17:56 109 105/59 07/20/21 17:45 110 31 93 Mechanical Ventilator 60.00 07/20/21 17:30 109 62 93 Mechanical Ventilator 60.00 07/20/21 17:15 36 93 Mechanical Ventilator 60.00 07/20/21 17:00 102 32 93 Mechanical Ventilator 60.00 07/20/21 16:41 109 105/59 07/20/21 16:30 110 24 93 Mechanical Ventilator 70.00 07/20/21 16:15 110 25 93 Mechanical Ventilator 70.00 07/20/21 16:03 37.6 07/20/21 16:00 90 Mechanical Ventilator 60 07/20/21 16:00 38 93 Mechanical Ventilator 70.00 07/20/21 15:45 29 92 Mechanical Ventilator 70.00 07/20/21 15:44 37.6 147 97 21 07/20/21 15:37 112 114/63 07/20/21 15:30 28 92 Mechanical Ventilator 70.00 07/20/21 15:15 105 39 93 Mechanical Ventilator 70.00 07/20/21 15:00 107 43 94 Mechanical Ventilator 70.00 07/20/21 14:55 60 07/20/21 14:45 106 84 93 Mechanical Ventilator 70.00 07/20/21 14:30 105 38 93 Mechanical Ventilator 70.00 07/20/21 14:17 101 23 95 70 07/20/21 14:15 101 20 96 Mechanical Ventilator 70.00 07/20/21 14:00 101 20 95 Mechanical Ventilator 70.00 07/20/21 13:45 100 21 96 Mechanical Ventilator 70.00 07/20/21 13:36 38.2 07/20/21 13:30 98 21 97 Mechanical Ventilator 70.00 07/20/21 13:22 38.5 07/20/21 13:15 98 18 97 Mechanical Ventilator 70.00 07/20/21 13:00 100 25 97 Mechanical Ventilator 70.00 07/20/21 12:54 38.7 07/20/21 12:50 123 07/20/21 12:45 90 44 94 Mechanical Ventilator 70.00 07/20/21 12:30 80 96 Mechanical Ventilator 70.00 07/20/21 12:15 122 39 95 Mechanical Ventilator 70.00 07/20/21 12:15 38.7 07/20/21 12:07 87 70 07/20/21 12:05 92 Mechanical Ventilator 70 07/20/21 12:00 125 33 90 Mechanical Ventilator 70.00 07/20/21 11:51 116 106/60 07/20/21 11:45 123 41 90 Mechanical Ventilator 70.00 07/20/21 11:42 38.2 07/20/21 11:30 123 37 92 Mechanical Ventilator 70.00 07/20/21 11:15 121 39 93 Mechanical Ventilator 70.00 07/20/21 11:09 Mechanical Ventilator 45.00 07/20/21 11:02 116 29 94 45 07/20/21 11:00 111 15 92 07/20/21 10:56 40 07/20/21 10:45 38 92 Mechanical Ventilator 40.00 07/20/21 10:30 87 25 96 Mechanical Ventilator 40.00 07/20/21 10:15 90 33 97 Mechanical Ventilator 40.00 07/20/21 10:00 07/20/21 09:45 90 34 96 Mechanical Ventilator 40.00 07/20/21 09:30 129 28 98 Mechanical Ventilator 40.00 07/20/21 09:15 35 87 Mechanical Ventilator 40.00 07/20/21 09:00 84 25 93 Mechanical Ventilator 40.00 I & O 07/21/21 07:00 Intake Total 1850 ml Output Total 1445 ml Balance 405 ml Height & Weight Height: 5'8.00" Weight: 167lbs. 0.0oz. [id number]; 32.65 BMI Method:Estimated General Appearance: No Apparent Distress HEENT: PERRL/EOMI Neck: Full Range of Motion Respiratory: Decreased Breath Sounds, Rhonci Cardiovascular: Regular Rate, Rhythm Capillary Refill: Less Than 3 Seconds Gastrointestinal: normal bowel sounds, distended Extremity: Normal Capillary Refill Neurologic/Psychiatric: Alert, Oriented x3, Other (vent/sedated) Skin: Normal Color Lymphatic: No Adenopathy Results Lab Laboratory Tests 07/20/21 05:45 07/21/21 03:46 Assessment/Plan Assessment/Plan (Tele-ICU Physician , Progress Note ) Available chart/ vitals / labs / Images reviewed Video assessment done using teleICU camera, rest of exam as per RN Discussed with RN , EXAM PER RN Events overnight : FEBRILE FiO2 - 85 I/O = positive Drips: bicarb Pressors: levo Sedation gtt: precedex and fentanyl ( RASS - 3 ) - overnight added propogol VENT SETTINGS and ABG reviewed Not candidate for SBT today REVIEWED Cardiovascular Stability / Sedation Score / FI02/PEEP / ABG / CXR Consultants: maxine Hospital course: (07/15) 40 y/o female admitted in ED with Altered mental status. Positive meth. Multilobar infiltrate/ Septic Shock/UTI/ Methamphetamine abuse. INTUBATED (07/16) CT ABD: right pelvic iliopsoas myositis, multiple IM abscesses, internal iliac venous thrombus--likely infected clot possible source of septic emboli, left pleural effusion, possible ileus or SBO dilatation (07/18) Attempted to place in higher level of care: contacted over 72 facilities no beds available. (07/19) Cardiovascular Surgery consulting from [facility] . No surgery indic ated. 07/20 - AC 400- 20 +5 45% 06/21 - AC 470 26 +8 85%-PAP 35 with rep acidosis - LASIX gtt , PLT =45 HEPARIN GTT STOPPED A/P MRSA septicemia secondary to drug abuse -ECHO - 07/16 - no any evidence of echo vegetations. - ABX to cont - repeated cx 07/20 - pending - Acute hypoxic respiratory failure secondary to septic emboli and septic shock - INTUBATED 07/15 --resp acidosis - vent changed to AC 470 26 +8 85% - PAP 38 , starting lasix gtt Metabolic encephalopathy about the same - CT of the brain with and without contrast negative for any cerebral abscess. - decrease sedation - attempt to weake up and assess Multiple septic emboli in the abdomen , lung , and myositis due to MRSA sepsis - cont ABX internal iliac venous thrombus - heparin gtt STOPPED 07/21 with PLT =45 Metabolic acidosis - on bicarnb gtt - follow Thrombocytopenia ( on heparin ) - worsenign - DIC suspected at some extend , fintinogen > 800 - ? consumption vs HIPA- pending - stop heparin gtt 07/22 Nutrition - KUB 07/20 - nonobstructive pattern - try trophic feeding - might need TPN Hypernatremia - change fluid to D5w History of longstanding methamphetamine abuse and noncompliance with the medical advice. Lines : LEFT IJ (Central Line Necessity Reviewed) Garcia: + OG: + Nutrition: Analgesia: Anxiety/ delirium VTE Prophylaxis: hep gtt Stress Ulcer Prophylaxis: ppi Glycemic Control: Plans in collaboation with bedside consultants and IM MDs. Discussed with RN to reach out if any questions or concerns A total of 40 minutes of critical care time was devoted to this patient today, required to treat and/or prevent further deterioration of critical care condition ( as above) . MARYCARMEN HENRY MD Jul 21, 2021 08:17
[2021-07-21] MEDS: PIPERACILLIN/TAZOBACTAM (BULK) 4.5 GM in NS (IVPB) 100 ML IV SCH ×2 (08:48→16:56)
[2021-07-21] MEDS: PANTOPRAZOLE 40 MG (PROTONIX) VIAL IV SCH ×2 (08:48→20:23)
[2021-07-21] MEDS: LACRI-LUBE OPTHALMIC OINT 3.5 GM TUBE OU SCH ×2 (08:49→20:23)
[2021-07-21] MEDS: FUROSEMIDE INJECTION 120 MG in D5W 100 ML IVPB 108 ML IV SCH ×4 (09:01→21:55)
[2021-07-21] MEDS: NS IV 1000 ML 1,000 ML IV SCH ×2 (09:57→20:38)
[2021-07-21] MEDS ORDERED: VANCOMYCIN 1 GM/NS 250 ML IVPB IV SCH ×2 (10:00)
--- NOTE | 2021-07-21 11:55 | Progress Note ---
Subjective Date Seen by a Provider: Jul 21, 2021 Time Seen by a Provider: 11:30 Subjective/Events-last exam patient remains critically ill. thrombocytopenic. pulmonary edema and worsening respiratory status. Focused Exam Time of Focused Exam: 08:15 Objective Exam Vital Signs Date Time Temp Pulse Resp B/P (MAP) Pulse Ox O2 Delivery O2 Flow Rate FiO2 07/21/21 09:56 116 104/52 07/21/21 09:45 115 26 94 Mechanical Ventilator 85.00 07/21/21 09:30 115 26 94 Mechanical Ventilator 85.00 07/21/21 09:15 116 26 93 Mechanical Ventilator 85.00 07/21/21 09:00 31 93 Mechanical Ventilator 85.00 07/21/21 08:45 113 27 95 Mechanical Ventilator 85.00 07/21/21 08:15 111 28 96 Mechanical Ventilator 85.00 07/21/21 08:00 94 Mechanical Ventilator 85 07/21/21 07:54 113 118/57 07/21/21 07:45 114 33 94 Mechanical Ventilator 85.00 07/21/21 07:30 115 21 93 Mechanical Ventilator 85.00 07/21/21 07:15 116 21 89 Mechanical Ventilator 85.00 07/21/21 07:00 116 33 89 Mechanical Ventilator 85.00 07/21/21 07:00 111 07/21/21 06:50 75 07/21/21 06:02 113 103/50 07/21/21 06:00 37.3 114 19 91 Mechanical Ventilator 75.00 07/21/21 05:07 75 07/21/21 05:00 Mechanical Ventilator 75.00 07/21/21 05:00 37.4 112 22 96 Mechanical Ventilator 75.00 07/21/21 04:26 116 108/53 07/21/21 04:19 117 20 93 70 07/21/21 04:00 37.4 117 27 90 Mechanical Ventilator 80.00 07/21/21 04:00 93 Mechanical Ventilator 80 07/21/21 03:12 37.5 07/21/21 03:00 37.2 112 95 Mechanical Ventilator 80.00 07/21/21 02:56 80 07/21/21 02:43 114 101/52 07/21/21 02:42 37.2 07/21/21 02:18 114 22 92 70 07/21/21 02:00 37.0 110 21 92 Mechanical Ventilator 80.00 07/21/21 01:10 107 103/53 07/21/21 01:00 36.9 107 19 92 Mechanical Ventilator 80.00 07/21/21 01:00 107 07/21/21 00:01 Mechanical Ventilator 80.00 07/21/21 00:00 36.7 108 93 Mechanical Ventilator 70.00 07/20/21 23:59 93 Mechanical Ventilator 80 07/20/21 23:27 98/48 07/20/21 23:00 36.6 102 23 93 Mechanical Ventilator 70.00 07/20/21 22:56 70 07/20/21 22:17 105 100/53 07/20/21 22:00 36.8 105 21 94 Mechanical Ventilator 70.00 07/20/21 21:40 105 21 92 70 07/20/21 21:38 104 110/57 07/20/21 21:00 36.9 104 18 93 Mechanical Ventilator 70.00 07/20/21 20:33 Mechanical Ventilator 70.00 07/20/21 20:00 37.1 107 20 91 Mechanical Ventilator 60.00 07/20/21 20:00 93 Mechanical Ventilator 70 07/20/21 19:00 109 07/20/21 19:00 37.2 109 17 91 Mechanical Ventilator 60.00 07/20/21 18:56 60 07/20/21 18:06 109 20 92 60 07/20/21 18:00 111 20 92 60.00 07/20/21 17:56 109 105/59 07/20/21 17:45 110 31 93 Mechanical Ventilator 60.00 07/20/21 17:30 109 62 93 Mechanical Ventilator 60.00 07/20/21 17:15 36 93 Mechanical Ventilator 60.00 07/20/21 17:00 102 32 93 Mechanical Ventilator 60.00 07/20/21 16:41 109 105/59 07/20/21 16:30 110 24 93 Mechanical Ventilator 70.00 07/20/21 16:15 110 25 93 Mechanical Ventilator 70.00 07/20/21 16:03 37.6 07/20/21 16:00 90 Mechanical Ventilator 60 07/20/21 16:00 38 93 Mechanical Ventilator 70.00 07/20/21 15:45 29 92 Mechanical Ventilator 70.00 07/20/21 15:44 37.6 147 97 21 07/20/21 15:37 112 114/63 07/20/21 15:30 28 92 Mechanical Ventilator 70.00 07/20/21 15:15 105 39 93 Mechanical Ventilator 70.00 07/20/21 15:00 107 43 94 Mechanical Ventilator 70.00 07/20/21 14:55 60 07/20/21 14:45 106 84 93 Mechanical Ventilator 70.00 07/20/21 14:30 105 38 93 Mechanical Ventilator 70.00 07/20/21 14:17 101 23 95 70 07/20/21 14:15 101 20 96 Mechanical Ventilator 70.00 07/20/21 14:00 101 20 95 Mechanical Ventilator 70.00 07/20/21 13:45 100 21 96 Mechanical Ventilator 70.00 07/20/21 13:36 38.2 07/20/21 13:30 98 21 97 Mechanical Ventilator 70.00 07/20/21 13:22 38.5 07/20/21 13:15 98 18 97 Mechanical Ventilator 70.00 07/20/21 13:00 100 25 97 Mechanical Ventilator 70.00 07/20/21 12:54 38.7 07/20/21 12:50 123 07/20/21 12:45 90 44 94 Mechanical Ventilator 70.00 07/20/21 12:30 80 96 Mechanical Ventilator 70.00 07/20/21 12:15 122 39 95 Mechanical Ventilator 70.00 07/20/21 12:15 38.7 07/20/21 12:07 87 70 07/20/21 12:05 92 Mechanical Ventilator 70 07/20/21 12:00 125 33 90 Mechanical Ventilator 70.00 I & O 07/21/21 07:00 Intake Total 1850 ml Output Total 1445 ml Balance 405 ml Capillary Refill : Less Than 3 Seconds General Appearance: No Apparent Distress HEENT: TMs Normal Neck: Full Range of Motion Respiratory: Decreased Breath Sounds, Rhonci Cardiovascular: Regular Rate, Rhythm Gastrointestinal: soft, distended Extremity: Normal Capillary Refill Neurologic/Psychiatric: Other (int/sedated) Skin: Normal Color Lymphatic: No Adenopathy Results Lab Laboratory Tests 07/20/21 12:50: Activated Partial Thromboplast Time 44H, Vancomycin Level Peak 24.6 07/20/21 17:52: Glucometer 125H 07/20/21 20:25: Activated Partial Thromboplast Time 63H 07/21/21 00:28: Activated Partial Thromboplast Time 66H 07/21/21 00:54: Glucometer 142H 07/21/21 03:46: White Blood Count 19.5H, Red Blood Count 2.84L, Hemoglobin 8.3L, Hematocrit 28L, Mean Corpuscular Volume 98, Mean Corpuscular Hemoglobin 29, Mean Corpuscular Hemoglobin Concent 30L, Red Cell Distribution Width 16.9H, Platelet Count 41L, Mean Platelet Volume 13.3H, Immature Granulocyte % (Auto) 3, Neutrophils (%) (Auto) 90H, Lymphocytes (%) (Auto) 4L, Monocytes (%) (Auto) 2, Eosinophils (%) (Auto) 1, Basophils (%) (Auto) 0, Neutrophils # (Auto) 17.6H, Lymphocytes # (Auto) 0.8L, Monocytes # (Auto) 0.5, Eosinophils # (Auto) 0.1, Basophils # (Auto) 0.0, Immature Granulocyte # (Auto) 0.5H, Neutrophils % (Manual) 36, Lymphocytes % (Manual) 7, Monocytes % (Manual) 3, Eosinophils % (Manual) 2, Metamyelocytes % 5, Band Neutrophils 46, Nucleated Red Blood Cells 5, Atypical Lymphocytes 1, Toxic Granulation 1+, Polychromasia SLIGHT, Basophilic Stippling SLIGHT, Prothrombin Time 15.5H, INR Comment 1.2, Activated Partial Thromboplast Time 101H, Fibrinogen 845H, D-Dimer 15.23H, Sodium Level 145, Potassium Level 5.0, Chloride Level 114H, Carbon Dioxide Level 17L, Anion Gap 14, Blood Urea Nitrogen 44H, Creatinine 0.89, Estimat Glomerular Filtration Rate 71, BUN/Creatinine Ratio 49, Glucose Level 156H, Calcium Level 6.4L, Corrected Calcium 8.3L, Phosphorus Level 5.3H, Magnesium Level 2.7H, Total Bilirubin 1.8H, Aspartate Amino Transf (AST/SGOT) 51H, Alanine Aminotransferase (ALT/SGPT) 28, Alkaline Phosphatase 139H, Total Protein 5.2L, Albumin 1.6L, Vancomycin Level Trough 17.1 07/21/21 03:55: Blood Gas Puncture Site LEFT ARTLINE, Blood Gas Patient Temperature 37.3, Arterial Blood pH 7.03*L, Arterial Blood Partial Pressure CO2 81*H, Arterial Blood Partial Pressure O2 100H, Arterial Blood HCO3 20L, Arterial Blood Total CO2 22.7, Arterial Blood Oxygen Saturation 96, Arterial Blood Base Excess -9.1L, Luis Test ARTLINE, Blood Gas Ventilator Setting YES, Blood Gas Inspired Oxygen 100% 07/21/21 06:45: Activated Partial Thromboplast Time 67H 07/21/21 06:46: Blood Gas Puncture Site L ART LINE, Blood Gas Patient Temperature 37.7, Arterial Blood pH 7.04*L, Arterial Blood Partial Pressure CO2 78*H, Arterial Blood Partial Pressure O2 77L, Arterial Blood HCO3 20L, Arterial Blood Total CO2 22.3, Arterial Blood Oxygen Saturation 94, Arterial Blood Base Excess -9.2L, Luis Test ART LINE, Blood Gas Ventilator Setting YES, Blood Gas Inspired Oxygen 75% Microbiology 07/20/21 Blood Culture - Preliminary, Resulted 07/15/21 Gram Stain - Final, Complete 07/15/21 Sputum Culture - Final, Complete Staphylococcus aureus Haemophilus influenza 07/15/21 Urine Culture - Final, Complete Staphylococcus aureus Assessment/Plan Assessment/Plan Assess & Plan/Chief Complaint venous/arterial septic thrombosis. on heparin gtt. thrombocytopenic, HIT and DIC panel pending. if HIT then switch to argatroban. worsening pulm status likely due to pulmonary infiltrate/edema. brochoscopy not likely to help. will cont to monitor serial cxr. MELINDA ARAGON MD Jul 21, 2021 11:55
[2021-07-21 13:33] LABS: ABG BASE EXCESS -10.4 MMOL/L (-2.5-2.5); ABG OXYGEN SATURATION 95 % (94-100); ABG PCO2 61 MMHG (35-45); ABG PO2 79 MMHG (79-93); ABG TCO2 19.7 MMOL/L (21.0-31.0)
[2021-07-21 13:35] LABS: ABG PH 7.09 (7.37-7.43); ALLENS TEST ART LINE; INSPIRED O2 85%; VENTILATOR YES
[2021-07-21] MEDS ORDERED: KETOROLAC 30 MG/ML VIAL IVP NR (15:15)
[2021-07-21] MEDS ORDERED: MIDAZOLAM 5 MG/5 ML (VERSED) VIAL ONE (15:29)
[2021-07-21] MEDS ORDERED: HYDROmorphone 2 MG/ML VIAL (DILAUDID) IV ONE (15:30)
[2021-07-21] MEDS ORDERED: MIDAZOLAM 5 MG/5 ML (VERSED) VIAL IVP ONE (15:30)
[2021-07-21] MEDS ORDERED: NS (IVPB) 100 ML ONE (15:42)
[2021-07-21] MEDS ORDERED: SODIUM BICARB 8.4% 50 MEQ/50 ML (ABBOTT) SYR ONE (15:43)
[2021-07-21] MEDS ORDERED: SODIUM BICARB 8.4% 50 MEQ/50 ML (ABBOTT) SYR IV ONE (15:45)
[2021-07-21] MEDS: VASOPRESSIN INJECTION 20 UNIT/ML VIAL ONE ×2 (15:57→19:22)
[2021-07-21] MEDS: HYDROmorphone 2 MG/ML VIAL (DILAUDID) ONE ×2 (16:00→16:01)
[2021-07-21] MEDS: VASOPRESSIN INJECTION 20 UNIT in NS (IVPB) 100 ML IV SCH ×2 (19:24→22:08)
[2021-07-21 20:15] LABS: ABG BASE EXCESS -11.5 MMOL/L (-2.5-2.5); ABG OXYGEN SATURATION 93 % (94-100); ABG PO2 75 MMHG (79-93); ABG TCO2 20.8 MMOL/L (21.0-31.0)
--- NOTE | 2021-07-21 20:27 | Progress Note ---
Subjective Subjective/Events-last exam Intubated and Sedated, remains very critically ill Review of Systems Patient intubated and sedated Focused Exam Time of Focused Exam: 08:15 Objective Exam Last Set of Vital Signs Vital Signs Date Time Temp Pulse Resp B/P (MAP) Pulse Ox O2 Delivery O2 Flow Rate FiO2 07/21/21 20:00 36.9 07/21/21 19:54 120 07/21/21 18:56 100 07/21/21 18:40 99/52 07/21/21 18:30 30 87 Mechanical Ventilator 85.00 Capillary Refill : Less Than 3 Seconds I&O Intake and Output 07/21/21 00:00 Intake Total 2820 ml Output Total 1645 ml Balance 1175 ml Intake Oral 30 ml IV Total 2790 ml Output Urine Total 1220 ml Gastric Drainage Total 425 ml General: Other (Intubated and Sedated) Lungs: Other (diffuse crackles, increased work of breathing) Heart: Regular Rate, No Murmurs Extremities: Other (mottling of hands and feet) Results/Procedures Lab Laboratory Tests 07/20/21 20:25: Activated Partial Thromboplast Time 63H 07/21/21 00:28: Activated Partial Thromboplast Time 66H 07/21/21 00:54: Glucometer 142H 07/21/21 03:46: Activated Partial Thromboplast Time 101H, White Blood Count 19.5H, Red Blood Count 2.84L, Hemoglobin 8.3L, Hematocrit 28L, Mean Corpuscular Volume 98, Mean Corpuscular Hemoglobin 29, Mean Corpuscular Hemoglobin Concent 30L, Red Cell Distribution Width 16.9H, Platelet Count 41L, Mean Platelet Volume 13.3H, Immature Granulocyte % (Auto) 3, Neutrophils (%) (Auto) 90H, Lymphocytes (%) (Auto) 4L, Monocytes (%) (Auto) 2, Eosinophils (%) (Auto) 1, Basophils (%) (Auto) 0, Neutrophils # (Auto) 17.6H, Lymphocytes # (Auto) 0.8L, Monocytes # (Auto) 0.5, Eosinophils # (Auto) 0.1, Basophils # (Auto) 0.0, Immature Granulocyte # (Auto) 0.5H, Neutrophils % (Manual) 36, Lymphocytes % (Manual) 7, Monocytes % (Manual) 3, Eosinophils % (Manual) 2, Metamyelocytes % 5, Band Neutrophils 46, Nucleated Red Blood Cells 5, Atypical Lymphocytes 1, Toxic Granulation 1+, Polychromasia SLIGHT, Basophilic Stippling SLIGHT, Prothrombin Time 15.5H, INR Comment 1.2, Fibrinogen 845H, D-Dimer 15.23H, Sodium Level 145, Potassium Level 5.0, Chloride Level 114H, Carbon Dioxide Level 17L, Anion Gap 14, Blood Urea Nitrogen 44H, Creatinine 0.89, Estimat Glomerular Filtration Rate 71, BUN/Creatinine Ratio 49, Glucose Level 156H, Calcium Level 6.4L, Corrected Calcium 8.3L, Phosphorus Level 5.3H, Magnesium Level 2.7H, Total Bilirubin 1.8H, Aspartate Amino Transf (AST/SGOT) 51H, Alanine Aminotransferase (ALT/SGPT) 28, Alkaline Phosphatase 139H, Total Protein 5.2L, Albumin 1.6L, Vancomycin Level Trough 17.1 07/21/21 03:55: Blood Gas Puncture Site LEFT ARTLINE, Blood Gas Patient Temperature 37.3, Arterial Blood pH 7.03*L, Arterial Blood Partial Pressure CO2 81*H, Arterial Blood Partial Pressure O2 100H, Arterial Blood HCO3 20L, Arterial Blood Total CO2 22.7, Arterial Blood Oxygen Saturation 96, Arterial Blood Base Excess -9.1L, Luis Test ARTLINE, Blood Gas Ventilator Setting YES, Blood Gas Inspired Oxygen 100% 07/21/21 06:45: Activated Partial Thromboplast Time 67H, Fibrinogen 965H 07/21/21 06:46: Blood Gas Puncture Site L ART LINE, Blood Gas Patient Temperature 37.7, Arterial Blood pH 7.04*L, Arterial Blood Partial Pressure CO2 78*H, Arterial Blood Partial Pressure O2 77L, Arterial Blood HCO3 20L, Arterial Blood Total CO2 22.3, Arterial Blood Oxygen Saturation 94, Arterial Blood Base Excess -9.2L, Luis Test ART LINE, Blood Gas Ventilator Setting YES, Blood Gas Inspired Oxygen 75% 07/21/21 13:00: Blood Gas Puncture Site ART LINE, Blood Gas Patient Temperature 37.0, Arterial Blood pH 7.09*L, Arterial Blood Partial Pressure CO2 61H, Arterial Blood Partial Pressure O2 79, Arterial Blood HCO3 18L, Arterial Blood Total CO2 19.7L, Arterial Blood Oxygen Saturation 95, Arterial Blood Base Excess -10.4L, Luis Test ART LINE, Blood Gas Ventilator Setting YES, Blood Gas Inspired Oxygen 85% 07/21/21 13:02: Glucometer 104 07/21/21 18:04: Glucometer 93 07/21/21 20:11: Microbiology 07/20/21 Blood Culture - Preliminary, Resulted Staphylococcus aureus 07/15/21 Gram Stain - Final, Complete 07/15/21 Sputum Culture - Final, Complete Staphylococcus aureus Haemophilus influenza 07/15/21 Urine Culture - Final, Complete Staphylococcus aureus Assessment/Plan Assessment/Plan (1) Septic shock Status: Acute Assessment & Plan: 07/20: Intubated and Sedated, requiring pressors for blood pressure support, continue broad spectrum antibiotics to cover staph which is growing out of urine and blood 07/21: Patient continues to require intubation and sedation and pressors for blood pressure support, Blood culture + MRSA (2) Multilobar lung infiltrate Status: Acute Assessment & Plan: 07/20: Intubated and sedated, eICU managing vent settings (3) Acute respiratory failure with hypoxia Status: Acute (4) Septic embolism Status: Acute Assessment & Plan: 07/21: hands and feet mottling (5) Normocytic anemia Status: Acute (6) Rhabdomyolysis Status: Acute Qualifiers: Qualified Codes: M62.82 - Rhabdomyolysis (7) Methamphetamine abuse Status: Acute (8) DVT prophylaxis Status: Acute Assessment & Plan: 07/20: Heparin drip (9) In critical condition Status: Acute Assessment & Plan: 07/20: Spoke with mother regarding patient's well being. Mother did not seem to understand the degree of illness facing her daughter. Updated her on the critical nature of what is going on. She would like for her to remain a full code. Spent 40 mins managing critical illness JUSTA YEAGER MD Jul 21, 2021 20:27
[2021-07-21 20:37] LABS: ABG PH 6.99 (7.37-7.43)
[2021-07-21 20:38] LABS: ABG PCO2 80 MMHG (35-45); ALLENS TEST POS
[2021-07-21 20:39] LABS: INSPIRED O2 100; PATIENT TEMP 37.2; VENTILATOR YES
[2021-07-21] MEDS ORDERED: ROCURONIUM 10 MG/ML 5 ML SYRINGE IV ONE (20:45)
--- NOTE | 2021-07-21 20:49 | Tele-ICU Progress Note ---
Progress Note Initially called regarding hypoxia with SpO2 reading 85 despite vent +18/100%. ABG sent for confirmation, did not correlate. PaO2 75 consistent with SpO2 around 92%. Suspect discrepency due to poor peripheral perfusion with fingers very dusky appearing. However, pH 6.99. CO2 80. Bicarb gtt already ongoing. Can not further adjust the vent with peak pressures already over 50. Will give dose of Jeremy, if pulmonary pressures improve, will initiate gtt. Focused Exam Height, Weight, BMI Height: 5'8.00" Weight: 167lbs. 0.0oz. 75.866988cf; 32.65 BMI Method:Estimated Time of Focused Exam: 08:15 SHERRY DAVIS MD Jul 21, 2021 20:49
[2021-07-21] MEDS ORDERED: BISACODYL 10 MG SUPP (DULCOLAX) PR PRN (23:15)
[2021-07-21] MEDS ORDERED: LORazepam INJ 2 MG/ML (ATIVAN) VIAL IVP PRN (23:15)
[2021-07-21] MEDS ORDERED: PROMETHAZINE INJ 25 MG/ML (PHENERGAN) AMP IVP PRN (23:15)
[2021-07-21] MEDS ORDERED: SALIVA STIMULANT MOUTH SPRAY (BIOTENE) 1.5 OZ MM PRN (23:15)
[2021-07-21] MEDS ORDERED: GLYCOPYRROLATE 0.2 MG/ML (ROBINUL) 2 ML VIAL IV PRN (23:15)
[2021-07-21] MEDS ORDERED: ARTIFICAL TEARS 0.4 ML UNIT DOSE (REFRESH PLUS) OU PRN (23:15)
[2021-07-21] MEDS ORDERED: LACTATED RINGERS 1,000 ML IV PRN (23:15)
[2021-07-21] MEDS ORDERED: ONDANSETRON 4 MG/2 ML (SDV) Z0FRAN IVP PRN (23:15)
[2021-07-21] MEDS ORDERED: morphine INJ 4 MG/ML 1 ML (VIAL/SYRINGE) IV PRN (23:15)
[2021-07-21] MEDS ORDERED: ACETAMINOPHEN 650 MG SUPP (TYLENOL) PR PRN (23:15)
[2021-07-21] MEDS ORDERED: morphine INJ 10 MG/ML 1ML (SYR OR VIAL) IVP PRN (23:15)
[2021-07-21] MEDS ORDERED: RT-ALBUTEROL/IPRATROPIUM 3 ML (DUONEB) VIAL INH PRN (23:15)
--- NOTE | 2021-07-21 23:15 | Tele-ICU Progress Note ---
Progress Note Mother was called to update on clinical status and high liklihood of impending cardiac arrest. She presented to the bedside where she received further updates about clinical status and prognosis. She understands the very high liklihood of cardiac arrest tonight given pH 6.99 without options for mitigation. She told RN that drugs ruined her daughter's life, and she would like her to pass in peace. Requesting comfort care and terminal extubation at this time. Appropriate orders have been entered. Focused Exam Height, Weight, BMI Height: 5'8.00" Weight: 167lbs. 0.0oz. 75.118976hi; 32.65 BMI Method:Estimated Time of Focused Exam: 08:15 SHERRY DAVIS MD Jul 21, 2021 23:15
--- NOTE | 2021-07-22 15:53 | Discharge Summary ---
Diagnosis/Chief Complaint Date of Admission Jul 15, 2021 at 18:32 Date of Discharge 07/22/21 Admission Diagnosis Admission Diagnosis See problem list Discharge Diagnosis See below Problems/Diagnosis: (1) Septic shock Assessment & Plan: 07/20: Intubated and Sedated, requiring pressors for blood pressure support, continue broad spectrum antibiotics to cover staph which is growing out of urine and blood 07/21: Patient continues to require intubation and sedation and pressors for blood pressure support, Blood culture + MRSA 07/22: Dr Arrington notified this AM that patient's mother decided to terminally extubate patient due to severe decompensation Status: Acute (2) Multilobar lung infiltrate Assessment & Plan: 07/20: Intubated and sedated, eICU managing vent settings Status: Acute (3) Acute respiratory failure with hypoxia Status: Acute (4) Septic embolism Assessment & Plan: 07/21: hands and feet mottling Status: Acute (5) Normocytic anemia Status: Acute (6) Rhabdomyolysis Qualifiers: Qualified Codes: M62.82 - Rhabdomyolysis Status: Acute (7) Methamphetamine abuse Status: Acute (8) DVT prophylaxis Assessment & Plan: 07/20: Heparin drip Status: Acute (9) In critical condition Assessment & Plan: 07/20: Spoke with mother regarding patient's well being. Mother did not seem to understand the degree of illness facing her daughter. Updated her on the critical nature of what is going on. She would like for her to remain a full code. Spent 40 mins managing critical illness Status: Acute Discharge Summary-Simple/Stand Consultations eICU Cardiology Dr Thorpe: General Surgery Discharge Physical Examination Allergies: Coded Allergies: No Known Drug Allergies (Unverified , 07/15/21) Vitals & I&Os Vital Sign - Last 12Hours Date Time Temp Pulse Resp B/P (MAP) Pulse Ox O2 Delivery O2 Flow Rate FiO2 07/22/21 00:03 90 Mechanical Ventilator 100 07/22/21 00:00 37.1 122 22 100.00 Intake and Output 07/22/21 00:00 Intake Total 2700 ml Output Total 520 ml Balance 2180 ml Hospital Course See final discharge diagnosis. Discharge Condition at discharge Instructions to patient/family Please see electronic discharge instructions given to patient. Discharge Medications Reviewed and agree with Discharge Medication list on patient's Discharge Inst ruction sheet Comfort Measures/ Type of Care: Comfort Measures Date of : Jul 22, 2021 JUSTA YEAGER MD Jul 22, 2021 15:53
[2021-07-28] MEDS ORDERED: PIPERACILLIN SODIUM/TAZOBACTAM 4.5 GM in NS (IVPB) 100 ML IV SCH (16:00)
== END 2021-08-03 12:58 | disposition expired | DRG 870 ==
LOC: EDUNIT# 15:29 → ER 15:30 → ICU 18:32
PROVIDERS: ADMIT Internal Medicine; ATTEND Internal Medicine
PROC: 5A1955Z Respiratory Ventilation, Greater than 96 Consecutive Hours (ICD-10-PCS; principal; 2021-07-15)
PROC: 0BH17EZ Insertion of Endotracheal Airway into Trachea, Via Natural or Artificial Opening (ICD-10-PCS; 2021-07-15)
DX: A41.02 Sepsis due to Methicillin resistant Staphylococcus aureus (principal); R65.21 Severe sepsis with septic shock; J15.212 Pneumonia due to Methicillin resistant Staphylococcus aureus; G93.41 Metabolic encephalopathy; J96.01 Acute respiratory failure with hypoxia; I26.90 Septic pulmonary embolism without acute cor pulmonale; N39.0 Urinary tract infection, site not specified; I76 Septic arterial embolism; M62.82 Rhabdomyolysis; I74.8 Embolism and thrombosis of other arteries; E87.1 Hypo-osmolality and hyponatremia; M60.08 Infective myositis, other site; I74.2 Embolism and thrombosis of arteries of the upper extremities; I74.3 Embolism and thrombosis of arteries of the lower extremities; E87.2 Acidosis; Z66 Do not resuscitate; Z51.5 Encounter for palliative care; Z20.822 Contact with and (suspected) exposure to COVID-19; B95.62 Methicillin resistant Staphylococcus aureus infection as the cause of diseases classified elsewhere; D69.6 Thrombocytopenia, unspecified; F17.210 Nicotine dependence, cigarettes, uncomplicated; F15.10 Other stimulant abuse, uncomplicated
CPT/HCPCS: 31500; 36415; 51702; 70470; 71045; 74018; 74178; 80053; 80076; 80202; 80306; 80320; 80329; 81000; 82248; 82550; 82805; 82947; 83605; 83690; 83735; 83874; 84100; 84145; 84478; 85007; 85025; 85027; 85379; 85384; 85610; 85652; 85730; 86022; 86141; 87040; 87070; 87077; 87081; 87088; 87186; 87205; 87636; 93306; 94002; 94003; 94640; 94799; 96361; 96374; 96375; 99291